=== PATIENT | male | born 1955 | race Asian ===

== ENCOUNTER 2018-01-03 00:33 | Inpatient (IN) | payer MEDICARE ==
[2018-01-03 01:58] LABS: Basophils % (Auto) 0.4 % (0.0-1.8); Eosinophils # (Auto) 0.2 K/mm3 (0.0-0.4); Eosinophils % (Auto) 1.6 % (0.0-4.3); Hematocrit 35.8 % (35.5-45.6); Hemoglobin 12.2 gm/dl (11.8-15.2); Lymphocytes # (Auto) 0.9 K/mm3 (1.2-5.4); Lymphocytes % (Auto) 9.1 % (13.4-35.0); Mean Corpuscular HGB Conc 34 % (32-34); Mean Corpuscular Hemoglobin 33 pg (28-32); Mean Corpuscular Volume 96 fl (84-94); Monocytes # (Auto) 1.3 K/mm3 (0.0-0.8); Monocytes % (Auto) 13.1 % (0.0-7.3); Platelet Count 287 K/mm3 (140-440); Red Blood Count 3.74 M/mm3 (3.65-5.03); Red Cell Distribution Width 15.9 % (13.2-15.2)
[2018-01-03] MEDS ORDERED: NORCO 5/325 PO ONE (01:59)
--- NOTE | 2018-01-03 01:59 | Emergency Department Report ---
ED Extremity Problem HPI - General Chief complaint: Extremity Injury, Lower Stated complaint: WOUND TO RT HIP/CONTROL BLEEDING Time Seen by Provider: 01/03/18 01:01 Source: patient, EMS Mode of arrival: Stretcher Limitations: Physical Limitation - History of Present Illness Initial comments: 62-year-old male with a past history of diabetes, hypertension, hepatitis B and C, S/P Renal transplant on 11/02/16 at [place], chronic wound ulcers, and other medical conditions [facility] with complaints of persistent bleeding to right foot wound. While visiting home nurses changing his wound dressing today he developed bleeding that would not stop. He was sent to the ER for further evaluation. Pt also has a chronic left heel ulcer and has chronic feet pain. Pain currently moderate and worse with palpation and movement. - Related Data Home Medications Medication Instructions Recorded Confirmed Last Taken Cholecalciferol Vit D3 [Vitamin D3] 1,000 unit PO QDAY 11/27/16 11/27/16 Docusate Sodium [Colace] 100 mg PO BID PRN 11/27/16 11/27/16 11/26/16 Entecavir [Baraclude] 0.5 mg PO QWEEK 11/27/16 11/27/16 11/26/16 Famotidine [Pepcid] 20 mg PO QHS 11/27/16 11/27/16 11/26/16 HYDROcodone/APAP 5-325 [[place] 1 each PO Q6HR PRN 11/27/16 11/27/16 11/26/16 5/325] Insulin Aspart [NovoLOG Flexpen] 10 units SQ AC 11/27/16 11/27/16 11/26/16 Insulin Detemir [Levemir VIAL] 20 unit SQ QHS 11/27/16 11/27/16 11/26/16 Metoprolol [Lopressor] 100 mg PO QAM 11/27/16 11/27/16 11/26/16 Mycophenolate [Cellcept] 1,000 mg PO BID 11/27/16 11/27/16 11/26/16 Polyethylene Glycol 3350 [Miralax 17 gm PO QDAY 11/27/16 11/27/16 11/26/16 3350] Sulfamethoxazole/Trimethoprim 1 each PO 3XW 11/27/16 11/27/16 11/26/16 [Bactrim 400-80 mg] Tacrolimus [Prograf] 9 mg PO Q12H 11/27/16 11/27/16 11/26/16 Valganciclovir HCl [Valcyte] 450 mg PO 3XW 11/27/16 11/27/16 11/26/16 amLODIPine [Norvasc] 10 mg PO DAILY 11/27/16 11/27/16 11/26/16 hydrALAZINE [Apresoline TAB] 100 mg PO TID 11/27/16 11/27/16 11/26/16 predniSONE [Deltasone] 5 mg PO QDAY 11/27/16 11/27/16 11/26/16 Allergies Allergy/AdvReac Type Severity Reaction Status Date / Time No Known Allergies Allergy Unverified 11/27/16 09:39 ED Review of Systems ROS: Stated complaint: WOUND TO RT HIP/CONTROL BLEEDING Other details as noted in HPI Comment: All other systems reviewed and negative ED Past Medical Hx - Past Medical History Previous Medical History?: Yes Hx Hypertension: Yes Hx Diabetes: Yes Additional medical history: Hepatitis B and C. neuromuscular dysfunction of bladder. osteomyelitis. generalized weakness - Surgical History Past Surgical History?: Yes Additional Surgical History: Kidney Transplant 10/2016. Vas Cath. Left great toe amputation - Social History Smoking Status: Former Smoker Substance Use Type: None - Medications Home Medications: Home Medications Medication Instructions Recorded Confirmed Last Taken Type Cholecalciferol Vit D3 [Vitamin D3] 1,000 unit PO QDAY 11/27/16 11/27/16 History Docusate Sodium [Colace] 100 mg PO BID PRN 11/27/16 11/27/16 11/26/16 History Entecavir [Baraclude] 0.5 mg PO QWEEK 11/27/16 11/27/16 11/26/16 History Famotidine [Pepcid] 20 mg PO QHS 11/27/16 11/27/16 11/26/16 History HYDROcodone/APAP 5-325 [[place] 1 each PO Q6HR PRN 11/27/16 11/27/16 11/26/16 History 5/325] Insulin Aspart [NovoLOG Flexpen] 10 units SQ AC 11/27/16 11/27/16 11/26/16 History Insulin Detemir [Levemir VIAL] 20 unit SQ QHS 11/27/16 11/27/16 11/26/16 History Metoprolol [Lopressor] 100 mg PO QAM 11/27/16 11/27/16 11/26/16 History Mycophenolate [Cellcept] 1,000 mg PO BID 11/27/16 11/27/16 11/26/16 History Polyethylene Glycol 3350 [Miralax 17 gm PO QDAY 11/27/16 11/27/16 11/26/16 History 3350] Sulfamethoxazole/Trimethoprim 1 each PO 3XW 11/27/16 11/27/16 11/26/16 History [Bactrim 400-80 mg] Tacrolimus [Prograf] 9 mg PO Q12H 11/27/16 11/27/16 11/26/16 History Valganciclovir HCl [Valcyte] 450 mg PO 3XW 11/27/16 11/27/16 11/26/16 History amLODIPine [Norvasc] 10 mg PO DAILY 11/27/16 11/27/16 11/26/16 History hydrALAZINE [Apresoline TAB] 100 mg PO TID 11/27/16 11/27/16 11/26/16 History predniSONE [Deltasone] 5 mg PO QDAY 11/27/16 11/27/16 11/26/16 History ED Physical Exam - General Limitations: Physical Limitation - Other Other exam information: General: No limitations, patient is alert in no acute distress Head exam: Atraumatic, normocephalic Eyes exam: Normal appearance ENT: Moist mucous membrane, normal oropharynx Neck exam: Normal inspection Respiratory exam: Clear to auscultation bilateral, no wheezes, rales, crackles Cardiovascular: Normal rate and rhythm, normal heart sounds Abdomen: Soft, nondistended, and nontender, with normal bowel sounds, no rebound, or guarding Extremity: large ciruclar heel wound noted with clotted blood and minimal bleeding after dressing change. Dressing was soaked with blood prior to removal. Helistat and pressure bandage applied to the ulcer. partial left foot great toe amputation Back: Normal Inspection, full range of motion, no tenderness Neurologic: Alert, oriented x3, cranial nerves intact, no motor or sensory deficit Psychiatric: normal affect, normal mood Skin: b/l heel ulcer. left heel wound dressing. Bleeding right heel ulcer ED Course Vital Signs 01/03/18 01/03/18 01/03/18 01:11 01:15 02:00 Temperature 97.9 F Pulse Rate 60 60 63 Respiratory 20 17 9 L Rate Blood Pressure 142/65 142/65 135/75 O2 Sat by Pulse 97 98 100 Oximetry - Consultations Consultation #1: 01/03/18 02:52 case d/w Dr steff rowe regarding bun/cr ratio. Rec admission and hydration. NS rate 100ml/hr. Will consult ED Medical Decision Making - Lab Data Result diagrams: 01/03/18 01:45 01/03/18 01:45 Lab Results 01/03/18 01/03/18 01/03/18 Range/Units 01:45 01:45 01:45 WBC 10.3 (4.5-11.0) K/mm3 RBC 3.74 (3.65-5.03) M/mm3 Hgb 12.2 (11.8-15.2) gm/dl Hct 35.8 (35.5-45.6) % MCV 96 H (84-94) fl MCH 33 H (28-32) pg MCHC 34 (32-34) % RDW 15.9 H (13.2-15.2) % Plt Count 287 (140-440) K/mm3 Lymph % (Auto) 9.1 L (13.4-35.0) % [place] % (Auto) 13.1 H (0.0-7.3) % Eos % (Auto) 1.6 (0.0-4.3) % Baso % (Auto) 0.4 (0.0-1.8) % Lymph # 0.9 L (1.2-5.4) K/mm3 [place] # 1.3 H (0.0-0.8) K/mm3 Eos # 0.2 (0.0-0.4) K/mm3 Baso # 0.0 (0.0-0.1) K/mm3 Seg Neutrophils % 75.8 H (40.0-70.0) % Seg Neutrophils # 7.8 H (1.8-7.7) K/mm3 PT 13.3 (12.2-14.9) Sec. INR 0.96 (0.87-1.13) APTT 32.2 (24.2-36.6) Sec. Sodium 134 L (137-145) mmol/L Potassium 4.8 (3.6-5.0) mmol/L Chloride 98.5 (98-107) mmol/L Carbon Dioxide 21 L (22-30) mmol/L Anion Gap 19 mmol/L BUN 80 H (9-20) mg/dL Creatinine 1.7 H (0.8-1.5) mg/dL Estimated GFR 41 ml/min BUN/Creatinine Ratio 47 % Glucose 137 H (75-100) mg/dL Calcium 9.2 (8.4-10.2) mg/dL Total Bilirubin 0.30 (0.1-1.2) mg/dL AST 89 H (5-40) units/L ALT 88 H (7-56) units/L Alkaline Phosphatase 564 H (35-129) units/L Total Protein 7.7 (6.3-8.2) g/dL Albumin 3.6 L (3.9-5) g/dL Albumin/Globulin Ratio 0.9 % - Medical Decision Making Patient presents to the ER were persistently bleeding right heal wound. heliostat dressing along with pressure bandage. Hemostasis achieved. H&H, Plt and coags normal range. Incidentally noted that patient has a significantly elevated BUN/creatinine ratio. This was discussed with nephrology who admission for hydration. Uremia may also incr risk of bleeding due platelet dysfunction. Cr improved compared to previous on record However pt was still receiving dialysis at that time. Hospitalist informed for admission. Patient may benefit from in-house wound care assessment. pt given [place] for pain - Differential Diagnosis pressure ulcer, coagulopathy, infection Critical Care Time: No Critical care attestation.: If time is entered above; I have spent that time in minutes in the direct care of this critically ill patient, excluding procedure time. ED Disposition Clinical Impression: Status post kidney transplant, Hepatitis, Chronic heel ulcer, Bleeding from wound, Uremia, Dehydration, CRI (chronic renal insufficiency) Disposition: OP ADMIT IP TO THIS HOSP Is pt being admited?: Yes Condition: Stable Time of Disposition: 03:03 (Dr Spear/hosp)
[2018-01-03 02:22] LABS: INR 0.96 (0.87-1.13)
[2018-01-03 02:23] LABS: Partial Thromboplastin Time 32.2 Sec. (24.2-36.6)
[2018-01-03 02:30] LABS: Albumin 3.6 g/dL (3.9-5); Calcium 9.2 mg/dL (8.4-10.2)
[2018-01-03] MEDS ORDERED: NACL 0.9% 1000 ML 1,000 ML IV ONE (02:51)
[2018-01-03] MEDS ORDERED: ZOFRAN IV PRN (04:44)
[2018-01-03] MEDS ORDERED: TYLENOL PO PRN (04:44)
[2018-01-03] MEDS ORDERED: SODIUM CHLORIDE FLUSH SYRINGE 10 ML IV PRN ×2 (04:44→06:31)
[2018-01-03] MEDS ORDERED: HumuLIN R SUB-Q ONE (05:00)
--- NOTE | 2018-01-03 05:07 | History and Physical Report ---
<ROLAND YOON - Last Filed: 01/03/18 06:19> History of Present Illness Date of examination: 01/03/18 Date of admission: 01/03/18 Chief complaint: Bleeding right foot ulcer History of present illness: P is a 62 y/o male with PMHx of DM type 2, hypertension, hepatitis B and C, S/P Renal transplant in 11/02/16 at [facility]. Pt currently resides in an [facility], he states that his dressing is changed 3 times a week on his left foot. Pt states that his nurse was performing a dressing change when he noticed that the wound was bleeding profusely, pt states that the bleeding wouldn't stop and he was sent to the ER for further evaluation. Pt also report chronic bilateral heel ulcer and pain, pt states that the pain is worse with manipulation and with any movement. He denies any recent illness, he denies fever, denies chills , denies GI symptoms, denies headache or dizziness. In the ER his lab study revealed an elevated BUN/Creat, elevated LFTs, pt nephrology was consulted and he is admitted for further evaluation. Past History Past Medical History: ESRD (s/p transplant), hepatitis Past Surgical History: Other (kidney transplant) Social history: no significant social history Family history: other (unknown) Medications and Allergies Allergies Allergy/AdvReac Type Severity Reaction Status Date / Time No Known Allergies Allergy Unverified 11/27/16 09:39 Home Medications Medication Instructions Recorded Confirmed Last Taken Type Cholecalciferol Vit D3 [Vitamin D3] 1,000 unit PO QDAY 11/27/16 11/27/16 History Docusate Sodium [Colace] 100 mg PO BID PRN 11/27/16 11/27/16 11/26/16 History Entecavir [Baraclude] 0.5 mg PO QWEEK 11/27/16 11/27/16 11/26/16 History Famotidine [Pepcid] 20 mg PO QHS 11/27/16 11/27/16 11/26/16 History HYDROcodone/APAP 5-325 [[place] 1 each PO Q6HR PRN 11/27/16 11/27/16 11/26/16 History 5/325] Insulin Aspart [NovoLOG Flexpen] 10 units SQ AC 0911/27/16 11/26/16 History Insulin Detemir [Levemir VIAL] 20 unit SQ QHS 11/27/16 11/27/16 11/26/16 History Metoprolol [Lopressor] 100 mg PO QAM 11/27/16 11/27/16 11/26/16 History Mycophenolate [Cellcept] 1,000 mg PO BID 11/27/16 11/27/16 11/26/16 History Polyethylene Glycol 3350 [Miralax 17 gm PO QDAY 11/27/16 11/27/16 11/26/16 History 3350] Sulfamethoxazole/Trimethoprim 1 each PO 3XW 11/27/16 11/27/16 11/26/16 History [Bactrim 400-80 mg] Tacrolimus [Prograf] 9 mg PO Q12H 11/27/16 11/27/16 11/26/16 History Valganciclovir HCl [Valcyte] 450 mg PO 3XW 11/27/16 11/27/16 11/26/16 History amLODIPine [Norvasc] 10 mg PO DAILY 11/27/16 11/27/16 11/26/16 History hydrALAZINE [Apresoline TAB] 100 mg PO TID 11/27/16 11/27/16 11/26/16 History predniSONE [Deltasone] 5 mg PO QDAY 11/27/16 11/27/16 11/26/16 History Active Meds: Active Medications Acetaminophen (Tylenol) 650 mg PO Q4H PRN PRN Reason: Pain MILD(1-3)/Fever >100.5/PORTILLO Heparin Sodium (Porcine) (Heparin) 5,000 unit SUB-Q Q12HR TORREY Sodium Chloride (Nacl 0.9% 1000 Ml) 1,000 mls @ 100 mls/hr IV ONCE ONE Stop: 01/03/18 12:50 Last Admin: 01/03/18 03:18 Dose: 100 mls/hr Sodium Chloride (Nacl 0.9% 1000 Ml) 1,000 mls @ 100 mls/hr IV DIRECT TORREY Insulin Human Regular (Humulin R) 0 units SUB-Q ONCE TORREY; Protocol Ondansetron HCl (Zofran) 4 mg IV Q8H PRN PRN Reason: Nausea And Vomiting Sodium Chloride (Sodium Chloride Flush Syringe 10 Ml) 10 ml IV BID TORREY Sodium Chloride (Sodium Chloride Flush Syringe 10 Ml) 10 ml IV PRN PRN PRN Reason: LINE FLUSH Review of Systems Musculoskeletal: other (bilateral foot ulces) Exam - Constitutional Vitals: Temp Pulse Resp BP Pulse Ox 97.9 F 63 9 L 135/75 100 01/03/18 01:11 01/03/18 02:00 01/03/18 02:00 01/03/18 02:00 01/03/18 02:00 General appearance: Present: no acute distress - EENT Eyes: Present: EOM intact ENT: hearing intact - Neck Neck: Present: normal ROM - Respiratory Respiratory effort: normal - Cardiovascular Rhythm: regular - Extremities Extremities: Full ROM Extremity abnormal: ulceration, tenderness Peripheral Pulses: within normal limits - Abdominal Male genitourinary: Present: normal - Rectal Rectal Exam: deferred - Musculoskeletal Musculoskeletal: strength equal bilaterally - Psychiatric Psychiatric: cooperative - Neurologic Neurologic: moves all extremities Results - Labs CBC & Chem 7: 01/03/18 01:45 01/03/18 01:45 Labs: Laboratory Last Values WBC 10.3 K/mm3 (4.5-11.0) 01/03/18 01:45 RBC 3.74 M/mm3 (3.65-5.03) 01/03/18 01:45 Hgb 12.2 gm/dl (11.8-15.2) 01/03/18 01:45 Hct 35.8 % (35.5-45.6) 01/03/18 01:45 MCV 96 fl (84-94) H 01/03/18 01:45 MCH 33 pg (28-32) H 01/03/18 01:45 MCHC 34 % (32-34) 01/03/18 01:45 RDW 15.9 % (13.2-15.2) H 01/03/18 01:45 Plt Count 287 K/mm3 (140-440) 01/03/18 01:45 Lymph % (Auto) 9.1 % (13.4-35.0) L 01/03/18 01:45 [place] % (Auto) 13.1 % (0.0-7.3) H 01/03/18 01:45 Eos % (Auto) 1.6 % (0.0-4.3) 01/03/18 01:45 Baso % (Auto) 0.4 % (0.0-1.8) 01/03/18 01:45 Lymph # 0.9 K/mm3 (1.2-5.4) L 01/03/18 01:45 [place] # 1.3 K/mm3 (0.0-0.8) H 01/03/18 01:45 Eos # 0.2 K/mm3 (0.0-0.4) 01/03/18 01:45 Baso # 0.0 K/mm3 (0.0-0.1) 01/03/18 01:45 Seg Neutrophils % 75.8 % (40.0-70.0) H 01/03/18 01:45 Seg Neutrophils # 7.8 K/mm3 (1.8-7.7) H 01/03/18 01:45 PT 13.3 Sec. (12.2-14.9) 01/03/18 01:45 INR 0.96 (0.87-1.13) 01/03/18 01:45 APTT 32.2 Sec. (24.2-36.6) 01/03/18 01:45 Sodium 134 mmol/L (137-145) L 01/03/18 01:45 Potassium 4.8 mmol/L (3.6-5.0) 01/03/18 01:45 Chloride 98.5 mmol/L (98-107) 01/03/18 01:45 Carbon Dioxide 21 mmol/L (22-30) L 01/03/18 01:45 Anion Gap 19 mmol/L 01/03/18 01:45 BUN 80 mg/dL (9-20) H 01/03/18 01:45 Creatinine 1.7 mg/dL (0.8-1.5) H 01/03/18 01:45 Estimated GFR 41 ml/min 01/03/18 01:45 BUN/Creatinine Ratio 47 % 01/03/18 01:45 Glucose 137 mg/dL (75-100) H 01/03/18 01:45 Calcium 9.2 mg/dL (8.4-10.2) 01/03/18 01:45 Total Bilirubin 0.30 mg/dL (0.1-1.2) 01/03/18 01:45 AST 89 units/L (5-40) H 01/03/18 01:45 ALT 88 units/L (7-56) H 01/03/18 01:45 Alkaline Phosphatase 564 units/L (35-129) H 01/03/18 01:45 Total Protein 7.7 g/dL (6.3-8.2) 01/03/18 01:45 Albumin 3.6 g/dL (3.9-5) L 01/03/18 01:45 Albumin/Globulin Ratio 0.9 % 01/03/18 01:45 Assessment and Plan Assessment and plan: 1. [place] foot wound/ Left foot ulcers 2. Elevated BUN/Creat 3. Post kidney transplant 4. H/O HCV/HBV 5. Elevated LFTs 6. Anemia Plan Wound care consult IVF for hydration/renal perfusion Nephrology consult management Monitor BNP and LFTs Resume home meds Pain management PRN for feet pain DVT prophylaxis with Heparin Plan of care was discussed with Pt Pt's condition and plan of care was d/w attending Advance Directives: Yes VTE prophylaxis?: Chemical Plan of care discussed with patient/family: Yes <TIKA CASTANEDA - Last Filed: 01/03/18 07:00> History of Present Illness Date of admission: 01/03/18 04:44 Medications and Allergies Active Meds: Active Medications Acetaminophen (Tylenol) 650 mg PO Q4H PRN PRN Reason: Pain MILD(1-3)/Fever >100.5/PORTILLO Heparin Sodium (Porcine) (Heparin) 5,000 unit SUB-Q Q12HR TORREY Sodium Chloride (Nacl 0.9% 1000 Ml) 1,000 mls @ 100 mls/hr IV ONCE ONE Stop: 01/03/18 12:50 Last Admin: 01/03/18 03:18 Dose: 100 mls/hr Sodium Chloride (Nacl 0.9% 1000 Ml) 1,000 mls @ 100 mls/hr IV DIRECT TORREY Ondansetron HCl (Zofran) 4 mg IV Q8H PRN PRN Reason: Nausea And Vomiting Sodium Chloride (Sodium Chloride Flush Syringe 10 Ml) 10 ml IV BID TORREY Sodium Chloride (Sodium Chloride Flush Syringe 10 Ml) 10 ml IV PRN PRN PRN Reason: LINE FLUSH Exam - Constitutional Vitals: Temp Pulse Resp BP Pulse Ox 97.9 F 61 20 156/65 98 01/03/18 01:11 01/03/18 06:01 01/03/18 06:01 01/03/18 06:01 01/03/18 06:01 Results - Labs CBC & Chem 7: 01/03/18 01:45 01/03/18 01:45 Labs: Laboratory Last Values WBC 10.3 K/mm3 (4.5-11.0) 01/03/18 01:45 RBC 3.74 M/mm3 (3.65-5.03) 01/03/18 01:45 Hgb 12.2 gm/dl (11.8-15.2) 01/03/18 01:45 Hct 35.8 % (35.5-45.6) 01/03/18 01:45 MCV 96 fl (84-94) H 01/03/18 01:45 MCH 33 pg (28-32) H 01/03/18 01:45 MCHC 34 % (32-34) 01/03/18 01:45 RDW 15.9 % (13.2-15.2) H 01/03/18 01:45 Plt Count 287 K/mm3 (140-440) 01/03/18 01:45 Lymph % (Auto) 9.1 % (13.4-35.0) L 01/03/18 01:45 [place] % (Auto) 13.1 % (0.0-7.3) H 01/03/18 01:45 Eos % (Auto) 1.6 % (0.0-4.3) 01/03/18 01:45 Baso % (Auto) 0.4 % (0.0-1.8) 01/03/18 01:45 Lymph # 0.9 K/mm3 (1.2-5.4) L 01/03/18 01:45 [place] # 1.3 K/mm3 (0.0-0.8) H 01/03/18 01:45 Eos # 0.2 K/mm3 (0.0-0.4) 01/03/18 01:45 Baso # 0.0 K/mm3 (0.0-0.1) 01/03/18 01:45 Seg Neutrophils % 75.8 % (40.0-70.0) H 01/03/18 01:45 Seg Neutrophils # 7.8 K/mm3 (1.8-7.7) H 01/03/18 01:45 PT 13.3 Sec. (12.2-14.9) 01/03/18 01:45 INR 0.96 (0.87-1.13) 01/03/18 01:45 APTT 32.2 Sec. (24.2-36.6) 01/03/18 01:45 Sodium 134 mmol/L (137-145) L 01/03/18 01:45 Potassium 4.8 mmol/L (3.6-5.0) 01/03/18 01:45 Chloride 98.5 mmol/L (98-107) 01/03/18 01:45 Carbon Dioxide 21 mmol/L (22-30) L 01/03/18 01:45 Anion Gap 19 mmol/L 01/03/18 01:45 BUN 80 mg/dL (9-20) H 01/03/18 01:45 Creatinine 1.7 mg/dL (0.8-1.5) H 01/03/18 01:45 Estimated GFR 41 ml/min 01/03/18 01:45 BUN/Creatinine Ratio 47 % 01/03/18 01:45 Glucose 137 mg/dL (75-100) H 01/03/18 01:45 POC Glucose 92 (70-105) 01/03/18 05:34 Calcium 9.2 mg/dL (8.4-10.2) 01/03/18 01:45 Total Bilirubin 0.30 mg/dL (0.1-1.2) 01/03/18 01:45 AST 89 units/L (5-40) H 01/03/18 01:45 ALT 88 units/L (7-56) H 01/03/18 01:45 Alkaline Phosphatase 564 units/L (35-129) H 01/03/18 01:45 Total Protein 7.7 g/dL (6.3-8.2) 01/03/18 01:45 Albumin 3.6 g/dL (3.9-5) L 01/03/18 01:45 Albumin/Globulin Ratio 0.9 % 01/03/18 01:45 Assessment and Plan Assessment and plan: Pt seen and examined, please refer to notes for details. He had bleeding from his wound on left foot which was stopped in the emergency room. We'll consult wound care, obtain ultrasound of his kidneys. Agree with the plan of care as discussed above
[2018-01-03] MEDS ORDERED: HEPARIN SUB-Q SCH (10:00)
[2018-01-03] MEDS ORDERED: SODIUM CHLORIDE FLUSH SYRINGE 10 ML IV SCH (10:00)
--- NOTE | 2018-01-03 10:26 | Consultation ---
History of Present Illness - Reason for Consult Consult date: 01/03/18 acute renal failure - History of Present Illness Mr James is a 62 y/o M with a PMH of DM2, HTN, Hep B and C, Renal Tx at [facility] in Oct 2016, Fungal sinus infection who comes to the [facility] with foot wound infection. Pt was sent to the ER from Rehab. He says his wound has been bleeding profusely recently. Per his family, he was recently admitted to the [facility] with fungal sinus infection and all his tx medications except prednisone were held. Per the discharge medication list from [facility] from Dec 24, 2017, pt was only on prednisone for tx and not on tacro/cellcept. He was also discharged on a anti-fungal medication. Pt currently denies fever, chills, N/V, belly pain , diarrhea. ROS: As in HPI otherwise 12 point review of systems -ve Past History Past Medical History: ESRD (s/p transplant), hepatitis Past Surgical History: Other (kidney transplant) Social history: no significant social history Family history: other (unknown) Medications and Allergies Allergies Allergy/AdvReac Type Severity Reaction Status Date / Time No Known Allergies Allergy Unverified 11/27/16 09:39 Home Medications Medication Instructions Recorded Confirmed Last Taken Type Aspirin [Aspirin BABY CHEW TAB] 81 mg PO QDAY 01/03/18 01/03/18 01/02/18 History Atovaquone [Mepron] 10 ml PO QHS 01/03/18 01/03/18 01/02/18 History Carvedilol [Coreg] 6.25 mg PO BID 01/03/18 01/03/18 01/02/18 History Cholecalciferol (Vitamin D3) 2,000 unit PO DAILY 01/03/18 01/03/18 1 Day Ago History [Vitamin D3] ~01/02/18 Collagenase [Santyl] 1 applicatio TP QDAY 01/03/18 01/03/18 1 Day Ago History ~01/02/18 Dextrose [Glucose Gel] 38 gm PO PRN PRN 01/03/18 01/03/18 Unknown History Docusate Sodium [Colace] 100 mg PO BID PRN 01/03/18 01/03/18 01/02/18 History Furosemide [Lasix TAB] 40 mg PO QDAY 01/03/18 01/03/18 01/02/18 History Heparin Sodium,Porcine [Heparin 5,000 units SUB-Q Q8HR 01/03/18 01/03/18 History Sodium] Insulin Glargine,Hum.rec.anlog 17 unit SQ QHS 01/03/18 01/03/18 01/02/18 History [Basaglar Kwikpen U-100] Isavuconazonium Sulfate [Cresemba] 372 mg PO DAILY 01/03/18 01/03/18 01/02/18 History Multivit-Min/Iron Fum/Folic AC 1 each PO DAILY 01/03/18 01/03/18 1 Day Ago History [Mnrfj-Ubvfcju-Nkzhtdur Tablet] ~01/02/18 NIFEdipine [Nifedipine ER] 60 mg PO BID 01/03/18 01/03/18 1 Day Ago History ~01/02/18 Pantoprazole [Protonix] 40 mg PO QDAY 01/03/18 01/03/18 1 Day Ago History ~01/02/18 Pregabalin [Lyrica] 25 mg PO Q8HR 01/03/18 01/03/18 1 Day Ago History ~01/02/18 RX: Entecavir 0.5 mg PO DAILY 01/03/18 01/03/18 01/02/18 History RX: Hydralazine HCl 50 mg PO TID 01/03/18 01/03/18 01/02/18 History RX: Sodium Bicarbonate 650 mg PO BID 01/03/18 01/03/18 1 Day Ago History ~01/02/18 RX: predniSONE [Deltasone] 10 mg PO QDAY 01/03/18 01/03/18 1 Day Ago History ~01/02/18 Simethicone [Gas Relief] 80 mg PO PRN 01/03/18 01/03/18 Unknown History Sodium Chloride/Aloe Vera [Searcy 22 ml NS Q6HR 01/03/18 01/03/18 01/02/18 History Saline Nasal Gel [place]] oxyCODONE /ACETAMINOPHEN [Percocet 1 tab PO Q6HR PRN 01/03/18 01/03/18 Unknown History 5/325] Active Meds: Active Medications Acetaminophen (Tylenol) 650 mg PO Q4H PRN PRN Reason: Pain MILD(1-3)/Fever >100.5/PORTILLO Heparin Sodium (Porcine) (Heparin) 5,000 unit SUB-Q Q12HR TORREY Sodium Chloride (Nacl 0.9% 1000 Ml) 1,000 mls @ 100 mls/hr IV ONCE ONE Stop: 01/03/18 12:50 Last Admin: 01/03/18 03:18 Dose: 100 mls/hr Sodium Chloride (Nacl 0.9% 1000 Ml) 1,000 mls @ 100 mls/hr IV DIRECT TORREY Ondansetron HCl (Zofran) 4 mg IV Q8H PRN PRN Reason: Nausea And Vomiting Sodium Chloride (Sodium Chloride Flush Syringe 10 Ml) 10 ml IV BID TORREY Sodium Chloride (Sodium Chloride Flush Syringe 10 Ml) 10 ml IV PRN PRN PRN Reason: LINE FLUSH Exam - Vital Signs Vital signs: Vital Signs Temp Pulse Resp BP Pulse Ox 97.9 F 60 20 142/65 97 01/03/18 01:11 01/03/18 01:11 01/03/18 01:11 01/03/18 01:11 01/03/18 01:11 - Physical Exam Narrative exam: GE:AAOX3 HEENT:PERRLA Neck:Supple Chest:Coarse BS BL CVS:RRR Abd:Soft/NT/ND/BS+ Ext:BL legs wrapped UG:No magdaleno Neuro:Intact Psyche:Appropriate mood Results - Lab Results 01/03/18 01:45 01/03/18 14:20 Most recent lab results Calcium 9.2 mg/dL (8.4-10.2) 01/03/18 01:45 Assessment and Plan Acute Kidney injury likely Pre-renal/ATN: Renal Transplant: -Renal US of Tx kidney shows WNLs -Cr improving with NS, will continue -Per recent d/c med list from [facility], pt only on predisone 10 mg daily, per family he was taken off tacro/Cellcept owing to fungal sinus infection. Primary team to verify his outpatient med list -Check Urine studies -Renally dose all meds and avoid nephrotoxic meds Foot wounds: -Wound care per primary Fungal Sinus infection: -Can continue outpatient anti-fungal medication -Consider ID consult Hepatitis C infection: -Can continue entacavir History Essential HTN: -Titrate BP meds PRN Diabetes Mellitus type 2 on insulin: -Per primary Metabolic acidosis: -Continue NaHCO3 tabs Plan d/w Dr Perez, Family and bedside RN. Ole Beaver MD [phone]
[2018-01-03] MEDS: NACL 0.9% 1000 ML 1,000 ML IV SCH (11:00)
--- NOTE | 2018-01-03 13:45 | Ultrasound Report ---
ULTRASOUND RENAL BILATERAL HISTORY: Acute renal failure. TECHNIQUE: transabdominal ultrasound with color Doppler interrogation. COMPARISON: none. FINDINGS: The right kidney measures 10.5cm. Right renal cortex: 1.2cm. The left kidney measures 10.3cm. Left renal cortex: 1.4cm. The tunica-biloxi kidneys are normal size, contour and position. There is increased renal cortical echotexture bilaterally consistent with nonspecific renal parenchymal disease. Corticomedullary differentiation is preserved. A 1.5 cm simple cyst is noted in the superior left kidney. No evidence for mass, nephrolithiasis, hydronephrosis or perinephric fluid. The views of the bladder and the region of the ureters appear normal. A transplant kidney is identified in the right lower quadrant measuring 11.7 x 6.7 x 8.4 cm. The transplant kidney does appear slightly echogenic. No evidence for hydronephrosis, calculus or perinephric fluid. Color Doppler demonstrates good flow to transplant kidney. IMPRESSION: The tunica-biloxi kidneys are echogenic consistent with chronic renal parenchymal disease. Essentially unremarkable appearance of the transplant kidney in the right renal fossa.
[2018-01-03] MEDS ORDERED: DELTASONE PO SCH ×2 (15:00→16:00)
[2018-01-03] MEDS: DELTASONE PO SCH (15:00)
[2018-01-03 15:13] LABS: Calcium 9.3 mg/dL (8.4-10.2)
[2018-01-03] MEDS ORDERED: COLACE PO PRN (15:28)
--- NOTE | 2018-01-03 15:28 | Event Note ---
Date: 01/03/18 Reviewed his meds and restarted S/p renal transplant patient Off cellcept sec to fungal infection On Antifungals Lasix on Hold Baseline BUN/Cr 60/1.4 on per Erlin On 12/30 82/1.8 Today 80/1.7 Sister and relatives very demanding
[2018-01-03] MEDS ORDERED: NON-FORMULARY (Cholecalciferol (Vitamin D3) [Vitamin D3] 2,000 UNIT) PO SCH (15:30)
[2018-01-03] MEDS ORDERED: NON-FORMULARY (Entecavir [Entecavir] 0.5 MG) PO SCH (15:30)
[2018-01-03] MEDS ORDERED: ISAVUCONAZONIUM SULFATE 372 MG PO SCH (15:30)
--- NOTE | 2018-01-03 15:33 | XRay Report ---
FINAL REPORT EXAM: XR CHEST 1V AP HISTORY: congestion COMPARISON: None. TECHNIQUE: Single portable view of the chest FINDINGS: The cardiomediastinal silhouette is normal in appearance. There is mild blunting of the right costophrenic angle that may represent a small pleural effusion. There is mild prominence of the pulmonary vasculature. No acute bony or soft tissue abnormality. IMPRESSION: Mild pulmonary vascular congestion. Mild blunting of the right costophrenic angle that may represent a trace pleural effusion.
[2018-01-03] MEDS ORDERED: NON-FORMULARY (Multivit-Min/Iron Fum/Folic Ac [Multi-Vitamin-Minerals Tablet] 1 EACH) PO SCH (15:45)
[2018-01-03] MEDS ORDERED: NON-FORMULARY (Nifedipine [Nifedipine Er] 60 MG) PO SCH (15:45)
[2018-01-03] MEDS ORDERED: MYLICON PO SCH (16:00)
[2018-01-03] MEDS: THERAGRAN-M Tab PO SCH (17:38)
[2018-01-03] MEDS: BABY ASPIRIN PO SCH (17:38)
[2018-01-03] MEDS: PROTONIX PO SCH (17:38)
[2018-01-03] MEDS: PERCOCET 5/325 PO PRN (17:38)
[2018-01-03] MEDS: LYRICA PO SCH ×2 (17:39→21:35)
[2018-01-03] MEDS ORDERED: SODIUM CHLORIDE NS SCH (18:00)
[2018-01-03] MEDS ORDERED: ALOE VERA NS SCH (18:00)
[2018-01-03] MEDS: SODIUM CHLORIDE FLUSH SYRINGE 10 ML IV SCH ×2 (18:35→21:37)
[2018-01-03] MEDS: SODIUM BICARBONATE PO SCH ×2 (18:36→21:34)
[2018-01-03] MEDS: VITAMIN D3 PO SCH (18:36)
[2018-01-03] MEDS: COREG PO SCH ×2 (18:37→21:35)
[2018-01-03] MEDS: SANTYL TP SCH (18:37)
[2018-01-03] MEDS: DAKIN'S HALF STRENGTH TP SCH ×2 (18:38→20:50)
[2018-01-03] MEDS ORDERED: NON-FORMULARY (Hydralazine Hcl [Hydralazine Hcl] 50 MG) PO SCH (20:00)
[2018-01-03] MEDS: APRESOLINE PO SCH (21:34)
[2018-01-03] MEDS: PROCARDIA XL PO SCH (21:35)
[2018-01-03] MEDS: HEPARIN SUB-Q SCH (21:35)
[2018-01-03] MEDS: MEPRON PO SCH (21:35)
[2018-01-03] MEDS: LANTUS SUB-Q SCH (21:37)
[2018-01-03] MEDS ORDERED: CELLCEPT PO SCH (22:00)
[2018-01-03] MEDS ORDERED: HEPARIN SODIUM PORCINE 5000 UNIT SUB-Q SCH (22:00)
[2018-01-03] MEDS ORDERED: INSULIN GLARGINE HUM REC ANLOG 17 UNIT SQ SCH (22:00)
[2018-01-04] MEDS: PERCOCET 5/325 PO PRN ×3 (02:42→23:51)
[2018-01-04] MEDS: NACL 0.9% 1000 ML 1,000 ML IV SCH ×2 (02:43→14:41)
[2018-01-04 03:14] LABS: Bilirubin,Urine NEG (Negative); Blood,Urine NEG (Negative); Color,Urine Yellow (Yellow); RBC,Urine < 1.0 /HPF (0.0-6.0); Urobilinogen,Urine < 2.0 mg/dL (<2.0)
[2018-01-04 03:18] LABS: Creatinine,Urine 28.3 mg/dL (0.1-20.0)
[2018-01-04 05:25] LABS: Hematocrit 35.4 % (35.5-45.6); Hemoglobin 11.9 gm/dl (11.8-15.2); Mean Corpuscular HGB Conc 34 % (32-34); Mean Corpuscular Hemoglobin 33 pg (28-32); Mean Corpuscular Volume 97 fl (84-94); Platelet Count 274 K/mm3 (140-440); Red Blood Count 3.64 M/mm3 (3.65-5.03); Red Cell Distribution Width 16.2 % (13.2-15.2)
[2018-01-04] MEDS: APRESOLINE PO SCH ×3 (05:34→21:19)
[2018-01-04] MEDS: HEPARIN SUB-Q SCH ×3 (05:34→21:20)
[2018-01-04] MEDS: LYRICA PO SCH ×3 (05:34→21:31)
[2018-01-04 05:48] LABS: Alanine Aminotransferase 71 units/L (7-56); BUN/Creatinine Ratio 45; Blood Urea Nitrogen 54 mg/dL (9-20); Calcium 8.8 mg/dL (8.4-10.2)
[2018-01-04 05:49] LABS: Albumin 3.1 g/dL (3.9-5); Hemolysis Index 7
[2018-01-04 06:20] LABS: Band Neutrophils # (Manual) 0.1 K/mm3; Basophils % (Manual) 0 % (0.0-1.8); Promyelocytes # (Manual) 0.1 K/mm3; Total Cells Counted 100
[2018-01-04 06:21] LABS: Anisocytosis 1+; Platelet Estimate Consistent w Auto
--- NOTE | 2018-01-04 09:18 | Consultation ---
History of Present Illness Consult date: 01/04/18 Reason for consult: other Chief complaint: Bilateral heel ulcers - History of present illness History of present illness: 62 yo diabetic male with bilateral heel ulcers. He states he was ambulatory as of 2 days ago. Past History Past Medical History: ESRD (s/p transplant), hepatitis, other (s/p renal transplant) Past Surgical History: Other (kidney transplant) Social history: no significant social history Family history: other (unknown) Medications and Allergies Allergies Allergy/AdvReac Type Severity Reaction Status Date / Time No Known Allergies Allergy Unverified 11/27/16 09:39 Home Medications Medication Instructions Recorded Confirmed Last Taken Type Aspirin [Aspirin BABY CHEW TAB] 81 mg PO QDAY 01/03/18 01/03/18 01/02/18 History Atovaquone [Mepron] 10 ml PO QHS 01/03/18 01/03/18 01/02/18 History Carvedilol [Coreg] 6.25 mg PO BID 01/03/18 01/03/18 01/02/18 History Cholecalciferol (Vitamin D3) 2,000 unit PO DAILY 01/03/18 01/03/18 1 Day Ago History [Vitamin D3] ~01/02/18 Collagenase [Santyl] 1 applicatio TP QDAY 01/03/18 01/03/18 1 Day Ago History ~01/02/18 Dextrose [Glucose Gel] 38 gm PO PRN PRN 01/03/18 01/03/18 Unknown History Docusate Sodium [Colace] 100 mg PO BID PRN 01/03/18 01/03/18 01/02/18 History Entecavir 0.5 mg PO DAILY 01/03/18 01/03/18 01/02/18 History Furosemide [Lasix TAB] 40 mg PO QDAY 01/03/18 01/03/18 01/02/18 History Heparin Sodium,Porcine [Heparin 5,000 units SUB-Q Q8HR 01/03/18 01/03/18 History Sodium] Hydralazine HCl 50 mg PO TID 01/03/18 01/03/18 01/02/18 History Insulin Glargine,Hum.rec.anlog 17 unit SQ QHS 01/03/18 01/03/18 01/02/18 History [Basaglar Kwikpen U-100] Isavuconazonium Sulfate [Cresemba] 372 mg PO DAILY 01/03/18 01/03/18 01/02/18 History Multivit-Min/Iron Fum/Folic AC 1 each PO DAILY 01/03/18 01/03/18 1 Day Ago History [Gdfqr-Whbgsos-Pplbsneg Tablet] ~01/02/18 NIFEdipine [Nifedipine ER] 60 mg PO BID 01/03/18 01/03/18 1 Day Ago History ~01/02/18 Pantoprazole [Protonix] 40 mg PO QDAY 01/03/18 01/03/18 1 Day Ago History ~01/02/18 Pregabalin [Lyrica] 25 mg PO Q8HR 01/03/18 01/03/18 1 Day Ago History ~01/02/18 Simethicone [Gas Relief] 80 mg PO PRN 01/03/18 01/03/18 Unknown History Sodium Bicarbonate 650 mg PO BID 01/03/18 01/03/18 1 Day Ago History ~01/02/18 Sodium Chloride/Aloe Vera [[place] 22 ml NS Q6HR 01/03/18 01/03/18 01/02/18 History Saline Nasal Gel [place]] oxyCODONE /ACETAMINOPHEN [Percocet 1 tab PO Q6HR PRN 01/03/18 01/03/18 Unknown History 5/325] predniSONE [Deltasone] 10 mg PO QDAY 01/03/18 01/03/18 1 Day Ago History ~01/02/18 Active Meds: Active Medications Acetaminophen (Tylenol) 650 mg PO Q4H PRN PRN Reason: Pain MILD(1-3)/Fever >100.5/PORTILLO Last Admin: 01/03/18 11:00 Dose: 650 mg Aspirin (Baby Aspirin) 81 mg PO QDAY [facility] Last Admin: 01/03/18 17:38 Dose: 81 mg Atovaquone (Mepron) 1,500 mg PO QHS [facility] Last Admin: 01/03/18 21:35 Dose: 1,500 mg Carvedilol (Coreg) 6.25 mg PO BID [facility] Last Admin: 01/03/18 21:35 Dose: 6.25 mg Cholecalciferol (Vitamin D3) 2,000 unit PO DAILY [facility] Last Admin: 01/03/18 18:36 Dose: Not Given Collagenase (Santyl) 1 applic TP QDAY [facility] Last Admin: 01/03/18 18:37 Dose: Not Given Docusate Sodium (Colace) 100 mg PO BID PRN PRN Reason: Constipation Heparin Sodium (Porcine) (Heparin) 5,000 unit SUB-Q Q8HR [facility] Last Admin: 01/04/18 05:34 Dose: 5,000 unit Hydralazine HCl (Apresoline) 25 mg PO Q8HR [facility] Last Admin: 01/04/18 05:34 Dose: 25 mg Sodium Chloride (Nacl 0.9% 1000 Ml) 1,000 mls @ 100 mls/hr IV DIRECT [facility] Last Admin: 01/04/18 02:43 Dose: 100 mls/hr Insulin Glargine (Lantus) 17 units SUB-Q QHS [facility] Last Admin: 01/03/18 21:37 Dose: 17 units Miscellaneous Medication (Entecavir [Entecavir]) 0.5 mg PO DAILY [facility] Miscellaneous Medication (Isavuconazonium Sulfate [Cresemba]) 372 mg PO DAILY [facility] Multivitamins/Minerals (Theragran-M Tab) 1 each PO QDAY [facility] Last Admin: 01/03/18 17:38 Dose: 1 each Nifedipine (Procardia Xl) 60 mg PO BID [facility] Last Admin: 01/03/18 21:35 Dose: 60 mg Ondansetron HCl (Zofran) 4 mg IV Q8H PRN PRN Reason: Nausea And Vomiting Oxycodone/Acetaminophen (Percocet 5/325) 1 tab PO Q6HR PRN PRN Reason: Pain Last Admin: 01/04/18 08:28 Dose: 1 tab Pantoprazole Sodium (Protonix) 40 mg PO QDAY [facility] Last Admin: 01/03/18 17:38 Dose: 40 mg Prednisone (Deltasone) 10 mg PO QDAY [facility] Last Admin: 01/03/18 15:00 Dose: Not Given Pregabalin (Lyrica) 25 mg PO Q8HR [facility] Last Admin: 01/04/18 05:34 Dose: 25 mg Simethicone (Mylicon) 80 mg PO PRN [facility] Last Admin: 01/03/18 17:39 Dose: 80 mg Sodium Bicarbonate (Sodium Bicarbonate) 650 mg PO BID [facility] Last Admin: 01/03/18 21:34 Dose: 650 mg Sodium Chloride (Sodium Chloride Flush Syringe 10 Ml) 10 ml IV BID TORREY Last Admin: 01/03/18 21:37 Dose: 10 ml Sodium Chloride (Sodium Chloride Flush Syringe 10 Ml) 10 ml IV PRN PRN PRN Reason: LINE FLUSH Sodium Chloride ([place] Saline) 1 applic NS Q6HR TORREY Sodium Hypochlorite (Dakin's Half Strength) 1 applic TP BID TORREY Last Admin: 01/03/18 20:50 Dose: 1 applicatio Review of Systems All systems: negative Exam Vital Signs Temp Pulse Resp BP Pulse Ox 97.9 F 60 20 142/65 97 01/03/18 01:11 01/03/18 01:11 01/03/18 01:11 01/03/18 01:11 01/03/18 01:11 - General physical appearance Positive: well developed, well nourished, no distress - Eyes Positive: PERRL, normal occular movement - ENT Positive: normal pinna, normal nares, normal mucosa, no hearing loss, no congestion - Neck Positive: no masses, no bruits, trachea midline, no venous distension - Respiratory Positive: normal expansion, normal respiratory effort, clear to auscultation - Cardiovascular Rhythm: regular Heart Sounds: Present: S1 & S2. Absent: rub, click - Extremities Extremities: abnormal (DP and PT pulses are non-palpable bilaterally. There is a 9 X 6 X 2 cm ulceration of the right heel with all of the calcaneus exposed and dessicated. The left heel reveals a 4.5 X 4.5 X 1.5 cm calcaneal ulcer with only a thin film of necrotic fascia over the calcaneus.) - Breasts Breasts: deferred - Abdomen Abdomen: Present: soft, bowel sounds normal. Absent: tender, distended Hernia: none - Genitourinary Male Genitourinary: deferred - Neurologic Neurologic: alert and oriented to time, place and person, motor strength and sensation are grossly intact - Musculoskeletal normal gait, normal posture - Psychiatric Psychiatric: appropriate mood/affect, intact judgment & insight Results - Labs 01/04/18 05:04 01/04/18 05:04 Abnormal lab results 01/03/18 01/03/18 01/04/18 Range/Units 14:20 21:38 02:46 RBC (3.65-5.03) M/mm3 Hct (35.5-45.6) % MCV (84-94) fl MCH (28-32) pg RDW (13.2-15.2) % Seg Neuts % (Manual) (40.0-70.0) % Lymphocytes % (Manual) (13.4-35.0) % Monocytes % (Manual) (0.0-7.3) % Eosinophils % (Manual) (0.0-4.3) % Lymphocytes # (Manual) (1.2-5.4) K/mm3 Eosinophils # (Manual) (0.0-0.4) K/mm3 Sodium (137-145) mmol/L Carbon Dioxide 20 L (22-30) mmol/L BUN 67 H (9-20) mg/dL Glucose 109 H (75-100) mg/dL POC Glucose 204 H (70-105) Phosphorus 2.30 L (2.5-4.5) mg/dL AST (5-40) units/L ALT (7-56) units/L Alkaline Phosphatase (35-129) units/L NT-Pro-B Natriuret Pep 1851 H (0-900) pg/mL Albumin (3.9-5) g/dL Urine Creatinine 28.3 H (0.1-20.0) mg/dL 01/04/18 01/04/18 01/04/18 Range/Units 05:04 05:04 07:46 RBC 3.64 L (3.65-5.03) M/mm3 Hct 35.4 L (35.5-45.6) % MCV 97 H (84-94) fl MCH 33 H (28-32) pg RDW 16.2 H (13.2-15.2) % Seg Neuts % (Manual) 72.0 H (40.0-70.0) % Lymphocytes % (Manual) 11.0 L (13.4-35.0) % Monocytes % (Manual) 9.0 H (0.0-7.3) % Eosinophils % (Manual) 6.0 H (0.0-4.3) % Lymphocytes # (Manual) 1.0 L (1.2-5.4) K/mm3 Eosinophils # (Manual) 0.6 H (0.0-0.4) K/mm3 Sodium 135 L (137-145) mmol/L Carbon Dioxide 20 L (22-30) mmol/L BUN 54 H (9-20) mg/dL Glucose 144 H (75-100) mg/dL POC Glucose 127 H (70-105) Phosphorus (2.5-4.5) mg/dL AST 70 H (5-40) units/L ALT 71 H (7-56) units/L Alkaline Phosphatase 511 H (35-129) units/L NT-Pro-B Natriuret Pep (0-900) pg/mL Albumin 3.1 L (3.9-5) g/dL Urine Creatinine (0.1-20.0) mg/dL Diabetes panel 01/03/18 01/04/18 Range/Units 14:20 05:04 Sodium 139 135 L (137-145) mmol/L Potassium 4.6 4.6 (3.6-5.0) mmol/L Chloride 103.5 102.8 (98-107) mmol/L Carbon Dioxide 20 L 20 L (22-30) mmol/L BUN 67 H 54 H (9-20) mg/dL Creatinine 1.4 1.2 (0.8-1.5) mg/dL Glucose 109 H 144 H (75-100) mg/dL Calcium 9.3 8.8 (8.4-10.2) mg/dL AST 70 H (5-40) units/L ALT 71 H (7-56) units/L Alkaline Phosphatase 511 H (35-129) units/L Total Protein 6.7 (6.3-8.2) g/dL Albumin 3.1 L (3.9-5) g/dL Calcium panel 01/03/18 01/04/18 Range/Units 14:20 05:04 Calcium 9.3 8.8 (8.4-10.2) mg/dL Phosphorus 2.30 L (2.5-4.5) mg/dL Albumin 3.1 L (3.9-5) g/dL Pituitary panel 01/03/18 01/04/18 Range/Units 14:20 05:04 Sodium 139 135 L (137-145) mmol/L Potassium 4.6 4.6 (3.6-5.0) mmol/L Chloride 103.5 102.8 (98-107) mmol/L Carbon Dioxide 20 L 20 L (22-30) mmol/L BUN 67 H 54 H (9-20) mg/dL Creatinine 1.4 1.2 (0.8-1.5) mg/dL Glucose 109 H 144 H (75-100) mg/dL Calcium 9.3 8.8 (8.4-10.2) mg/dL Adrenal panel 01/03/18 01/04/18 Range/Units 14:20 05:04 Sodium 139 135 L (137-145) mmol/L Potassium 4.6 4.6 (3.6-5.0) mmol/L Chloride 103.5 102.8 (98-107) mmol/L Carbon Dioxide 20 L 20 L (22-30) mmol/L BUN 67 H 54 H (9-20) mg/dL Creatinine 1.4 1.2 (0.8-1.5) mg/dL Glucose 109 H 144 H (75-100) mg/dL Calcium 9.3 8.8 (8.4-10.2) mg/dL Total Bilirubin 0.20 (0.1-1.2) mg/dL AST 70 H (5-40) units/L ALT 71 H (7-56) units/L Alkaline Phosphatase 511 H (35-129) units/L Total Protein 6.7 (6.3-8.2) g/dL Albumin 3.1 L (3.9-5) g/dL Assessment and Plan - Patient Problems (1) Chronic heel ulcer Current Visit: Yes Status: Acute Plan to address problem: 1) BLE arterial dopplers 2) Local wound care via the Wound Care nurse 3) Check A1c 4) Pt will need bilateral BKA's/AKA's. I suspect his family will not accept this well (See note that his family has been "demanding".).
[2018-01-04] MEDS: DAKIN'S HALF STRENGTH TP SCH ×2 (10:52→21:27)
[2018-01-04] MEDS: SODIUM BICARBONATE PO SCH ×2 (10:55→21:31)
[2018-01-04] MEDS: BABY ASPIRIN PO SCH (10:55)
[2018-01-04] MEDS: COREG PO SCH ×2 (10:55→21:19)
[2018-01-04] MEDS: PROTONIX PO SCH (10:55)
[2018-01-04] MEDS: THERAGRAN-M Tab PO SCH (10:56)
[2018-01-04] MEDS: PROCARDIA XL PO SCH ×2 (10:56→21:17)
[2018-01-04] MEDS: SODIUM CHLORIDE FLUSH SYRINGE 10 ML IV SCH ×2 (10:56→21:18)
[2018-01-04] MEDS: VITAMIN D3 PO SCH (10:56)
[2018-01-04] MEDS: SANTYL TP SCH (10:57)
[2018-01-04] MEDS: DELTASONE PO SCH (10:59)
[2018-01-04] MEDS: AYR SALINE NS SCH ×3 (11:10→23:52)
--- NOTE | 2018-01-04 13:33 | Progress Note ---
Assessment and Plan Assessment and plan: --Bilateral heel ulcers/infected/necrotic; Continue wound care, patient completed full course of antibiotic therapy, follow cultures, vascular and Wound care surgeons following, Dr. Cardenas recommended amputation. Patient and sister refused. Want to take second opinion --Fungal infection; continue antifungal, supportive care Patient's home medication Cresemba[Isavuconazonium sulfate is not available in our hospital] Patient and family demands the same brand antifungal medication. ID consultation for further evaluation and recommendations --Acute kidney injury; present on admission, probably vasomotor nephropathy Resolved, closely monitor renal function, avoid nephrotoxins --Status post renal transplant; continue current management Nephrology evaluated the patient --History of hepatitis C virus/hepatitis B virus; Continue current management, consider GI evaluation if needed --Transaminitis; probably secondary to hep B and C, closely monitor, GI evaluation if needed --Type 2 diabetes mellitus; Accu-Chek sliding scale coverage and ADA diet and insulin as needed --Moderate malnutrition; nutrition supplements and supportive care --DVT prophylaxis; continue heparin --Full CODE STATUS Will closely monitor the patient and adjust management as needed Follow-up consults evaluation and recommendations Plan of care reviewed with the patient ,his sister and his nurse and case management History Interval history: Evaluation seen and examined medical records reviewed Patient was admitted with bilateral heel ulcers, evaluated by wound care surgeon Dr. Cardenas Recommended surgical intervention Patient was recently admitted to [facility] and was advised antifungal Cresemba, Not available in our pharmacy, and patient and his family mainly his sister were very angry and upset And do not want any other alternative antifungals, ID consulted Patient feels better no new complaints Vital signs noted Hospitalist Physical - Constitutional Vitals: Temp Pulse Resp BP Pulse Ox 99.3 F 64 18 111/62 97 01/04/18 04:35 01/04/18 10:55 01/04/18 05:33 01/04/18 10:55 01/04/18 10:00 General appearance: Present: no acute distress, well-nourished, other (ill looking) - EENT Eyes: Present: PERRL, EOM intact - Neck Neck: Present: supple, normal ROM - Respiratory Respiratory effort: normal Respiratory: bilateral: diminished, negative: rales, rhonchi, wheezing - Cardiovascular Rhythm: regular Heart Sounds: Present: S1 & S2 - Extremities Extremities: abnormal (bilateral heel ulcers, infected with purulent discharge and necrotic tissue) - Abdominal General gastrointestinal: soft, non-tender, non-distended, normal bowel sounds - Integumentary Integumentary: Present: clear, warm - Psychiatric Psychiatric: appropriate mood/affect, cooperative - Neurologic Neurologic: moves all extremities Results - Labs CBC & Chem 7: 01/05/18 04:01 01/05/18 04:01 Labs: Laboratory Last Values WBC 9.4 K/mm3 (4.5-11.0) 01/04/18 05:04 RBC 3.64 M/mm3 (3.65-5.03) L 01/04/18 05:04 Hgb 11.9 gm/dl (11.8-15.2) 01/04/18 05:04 Hct 35.4 % (35.5-45.6) L 01/04/18 05:04 MCV 97 fl (84-94) H 01/04/18 05:04 MCH 33 pg (28-32) H 01/04/18 05:04 MCHC 34 % (32-34) 01/04/18 05:04 RDW 16.2 % (13.2-15.2) H 01/04/18 05:04 Plt Count 274 K/mm3 (140-440) 01/04/18 05:04 Lymph % (Auto) 9.1 % (13.4-35.0) L 01/03/18 01:45 [place] % (Auto) [employer] 01/04/18 05:04 Eos % (Auto) 1.6 % (0.0-4.3) 01/03/18 01:45 Baso % (Auto) 0.4 % (0.0-1.8) 01/03/18 01:45 Lymph # 0.9 K/mm3 (1.2-5.4) L 01/03/18 01:45 [place] # 1.3 K/mm3 (0.0-0.8) H 01/03/18 01:45 Eos # 0.2 K/mm3 (0.0-0.4) 01/03/18 01:45 Baso # 0.0 K/mm3 (0.0-0.1) 01/03/18 01:45 Add Manual Diff Complete 01/04/18 05:04 Total Counted 100 01/04/18 05:04 Seg Neutrophils % 75.8 % (40.0-70.0) H 01/03/18 01:45 Seg Neuts % (Manual) 72.0 % (40.0-70.0) H 01/04/18 05:04 Band Neutrophils % 1.0 % 01/04/18 05:04 Lymphocytes % (Manual) 11.0 % (13.4-35.0) L 01/04/18 05:04 Reactive Lymphs % (Man) 0 % 01/04/18 05:04 Monocytes % (Manual) 9.0 % (0.0-7.3) H 01/04/18 05:04 Eosinophils % (Manual) 6.0 % (0.0-4.3) H 01/04/18 05:04 Basophils % (Manual) 0 % (0.0-1.8) 01/04/18 05:04 Metamyelocytes % 0 % 01/04/18 05:04 Myelocytes % 0 % 01/04/18 05:04 Promyelocytes % 1.0 % 01/04/18 05:04 Blast Cells % 0 % 01/04/18 05:04 Nucleated RBC % Not Reportable 01/04/18 05:04 Seg Neutrophils # 7.8 K/mm3 (1.8-7.7) H 01/03/18 01:45 Seg Neutrophils # Man 6.8 K/mm3 (1.8-7.7) 01/04/18 05:04 Band Neutrophils # 0.1 K/mm3 01/04/18 05:04 Lymphocytes # (Manual) 1.0 K/mm3 (1.2-5.4) L 01/04/18 05:04 Abs React Lymphs (Man) 0.0 K/mm3 01/04/18 05:04 Monocytes # (Manual) 0.8 K/mm3 (0.0-0.8) 01/04/18 05:04 Eosinophils # (Manual) 0.6 K/mm3 (0.0-0.4) H 01/04/18 05:04 Basophils # (Manual) 0.0 K/mm3 (0.0-0.1) 01/04/18 05:04 Metamyelocytes # 0.0 K/mm3 01/04/18 05:04 Myelocytes # 0.0 K/mm3 01/04/18 05:04 Promyelocytes # 0.1 K/mm3 01/04/18 05:04 Blast Cells # 0.0 K/mm3 01/04/18 05:04 WBC Morphology Not Reportable 01/04/18 05:04 Hypersegmented Neuts Not Reportable 01/04/18 05:04 Hyposegmented Neuts Not Reportable 01/04/18 05:04 Hypogranular Neuts Not Reportable 01/04/18 05:04 Smudge Cells Not Reportable 01/04/18 05:04 Toxic Granulation Not Reportable 01/04/18 05:04 Toxic Vacuolation Not Reportable 01/04/18 05:04 Dohle Bodies Not Reportable 01/04/18 05:04 Pelger-Huet Anomaly Not Reportable 01/04/18 05:04 Sherly Rods Not Reportable 01/04/18 05:04 Platelet Estimate Consistent w auto 01/04/18 05:04 Clumped Platelets Not Reportable 01/04/18 05:04 Plt Clumps, EDTA Not Reportable 01/04/18 05:04 Large Platelets Not Reportable 01/04/18 05:04 Giant Platelets Not Reportable 01/04/18 05:04 Platelet Satelliting Not Reportable 01/04/18 05:04 Plt Morphology Comment Not Reportable 01/04/18 05:04 RBC Morphology Not Reportable 01/04/18 05:04 Dimorphic RBCs Not Reportable 01/04/18 05:04 Polychromasia Not Reportable 01/04/18 05:04 Hypochromasia Not Reportable 01/04/18 05:04 Poikilocytosis Not Reportable 01/04/18 05:04 Anisocytosis 1+ 01/04/18 05:04 Microcytosis Few 01/04/18 05:04 Macrocytosis Not Reportable 01/04/18 05:04 Spherocytes Not Reportable 01/04/18 05:04 Pappenheimer Bodies Not Reportable 01/04/18 05:04 Sickle Cells Not Reportable 01/04/18 05:04 Target Cells Not Reportable 01/04/18 05:04 Tear Drop Cells Not Reportable 01/04/18 05:04 Ovalocytes Not Reportable 01/04/18 05:04 Helmet Cells Not Reportable 01/04/18 05:04 [place] Bodies Not Reportable 01/04/18 05:04 Raymond Rings Not Reportable 01/04/18 05:04 [place] Cells Not Reportable 01/04/18 05:04 Bite Cells Not Reportable 01/04/18 05:04 Crenated Cell Not Reportable 01/04/18 05:04 Elliptocytes Not Reportable 01/04/18 05:04 Acanthocytes (Spur) Not Reportable 01/04/18 05:04 Rouleaux Not Reportable 01/04/18 05:04 Hemoglobin C Crystals Not Reportable 01/04/18 05:04 Schistocytes Not Reportable 01/04/18 05:04 Malaria parasites Not Reportable 01/04/18 05:04 Owen Bodies Not Reportable 01/04/18 05:04 Hem Pathologist Commnt No 01/04/18 05:04 PT 13.3 Sec. (12.2-14.9) 01/03/18 01:45 INR 0.96 (0.87-1.13) 01/03/18 01:45 APTT 32.2 Sec. (24.2-36.6) 01/03/18 01:45 Sodium 135 mmol/L (137-145) L 01/04/18 05:04 Potassium 4.6 mmol/L (3.6-5.0) 01/04/18 05:04 Chloride 102.8 mmol/L (98-107) 01/04/18 05:04 Carbon Dioxide 20 mmol/L (22-30) L 01/04/18 05:04 Anion Gap 17 mmol/L 01/04/18 05:04 BUN 54 mg/dL (9-20) H 01/04/18 05:04 Creatinine 1.2 mg/dL (0.8-1.5) 01/04/18 05:04 Estimated GFR > 60 ml/min 01/04/18 05:04 BUN/Creatinine Ratio 45 % 01/04/18 05:04 Glucose 144 mg/dL (75-100) H 01/04/18 05:04 POC Glucose 215 (70-105) H 01/04/18 12:39 Hemoglobin A1c 5.9 % (4-6) 01/04/18 05:04 Calcium 8.8 mg/dL (8.4-10.2) 01/04/18 05:04 Phosphorus 2.30 mg/dL (2.5-4.5) L 01/03/18 14:20 Magnesium 2.00 mg/dL (1.7-2.3) 01/03/18 14:20 Total Bilirubin 0.20 mg/dL (0.1-1.2) 01/04/18 05:04 AST 70 units/L (5-40) H 01/04/18 05:04 ALT 71 units/L (7-56) H 01/04/18 05:04 Alkaline Phosphatase 511 units/L (35-129) H 01/04/18 05:04 NT-Pro-B Natriuret Pep 1851 pg/mL (0-900) H 01/03/18 14:20 Total Protein 6.7 g/dL (6.3-8.2) 01/04/18 05:04 Albumin 3.1 g/dL (3.9-5) L 01/04/18 05:04 Albumin/Globulin Ratio 0.9 % 01/04/18 05:04 Urine Color Yellow (Yellow) 01/04/18 02:46 Urine Turbidity Clear (Clear) 01/04/18 02:46 Urine pH 6.0 (5.0-7.0) 01/04/18 02:46 Ur Specific [place] 1.011 (1.003-1.030) 01/04/18 02:46 Urine Protein 30 mg/dl mg/dL (Negative) 01/04/18 02:46 Urine Glucose (UA) 50 mg/dL (Negative) 01/04/18 02:46 Urine Ketones Neg mg/dL (Negative) 01/04/18 02:46 Urine Blood Neg (Negative) 01/04/18 02:46 Urine Nitrite Neg (Negative) 01/04/18 02:46 Urine Bilirubin Neg (Negative) 01/04/18 02:46 Urine Urobilinogen < 2.0 mg/dL (<2.0) 01/04/18 02:46 Ur Leukocyte Esterase Neg (Negative) 01/04/18 02:46 Urine WBC (Auto) 1.0 /HPF (0.0-6.0) 01/04/18 02:46 Urine RBC (Auto) < 1.0 /HPF (0.0-6.0) 01/04/18 02:46 Urine Creatinine 28.3 mg/dL (0.1-20.0) H 01/04/18 02:46 Urine Sodium 83 mmol/L 01/04/18 02:46 Urine Urea Nitrogen 687 01/04/18 02:46
--- NOTE | 2018-01-04 14:29 | Consultation ---
History of Present Illness - Reason for Consult Consult date: 01/04/18 PAD with Ulceration Requesting physician: ALBER SANTOYO - History of Present Illness This patient is a 62-year-old man that was admitted via the emergency room on due to bleeding from his right foot ulcer. He has bilateral lower extremity heel ulcers. He was evaluated by the wound care surgeon. Arterial duplex ultrasounds were ordered. The preliminary report suggests possible underlying peripheral arterial disease. A vascular surgery consult has been requested to further evaluate. The patient states that he was recently admitted to [facility]. He suggested that he had some sort of vascular procedure performed at that time ( though this has not been confirmed, and he was unclear about what type of procedure). Review of his current medical records suggests that he was treated for a fungal infection. He was ultimately discharged to a rehab facility. He developed bleeding with a dressing change to his right foot wound. This prompted him to be sent to the emergency room at [facility]. The patient states he is ambulatory and was walking 2 days ago. Past History Past Medical History: ESRD (s/p transplant), hepatitis, other (s/p renal transplant) Past Surgical History: Other (kidney transplant) Social history: no significant social history Family history: other (unknown) Medications and Allergies Allergies Allergy/AdvReac Type Severity Reaction Status Date / Time No Known Allergies Allergy Unverified 11/27/16 09:39 Home Medications Medication Instructions Recorded Confirmed Last Taken Type Aspirin [Aspirin BABY CHEW TAB] 81 mg PO QDAY 01/03/18 01/03/18 01/02/18 History Atovaquone [Mepron] 10 ml PO QHS 01/03/18 01/03/18 01/02/18 History Carvedilol [Coreg] 6.25 mg PO BID 01/03/18 01/03/18 01/02/18 History Cholecalciferol (Vitamin D3) 2,000 unit PO DAILY 01/03/18 01/03/18 1 Day Ago History [Vitamin D3] ~01/02/18 Collagenase [Santyl] 1 applicatio TP QDAY 01/03/18 01/03/18 1 Day Ago History ~01/02/18 Dextrose [Glucose Gel] 38 gm PO PRN PRN 01/03/18 01/03/18 Unknown History Docusate Sodium [Colace] 100 mg PO BID PRN 01/03/18 01/03/18 01/02/18 History Entecavir 0.5 mg PO DAILY 01/03/18 01/03/18 01/02/18 History Furosemide [Lasix TAB] 40 mg PO QDAY 01/03/18 01/03/18 01/02/18 History Heparin Sodium,Porcine [Heparin 5,000 units SUB-Q Q8HR 01/03/18 01/03/18 History Sodium] Hydralazine HCl 50 mg PO TID 01/03/18 01/03/18 01/02/18 History Insulin Glargine,Hum.rec.anlog 17 unit SQ QHS 01/03/18 01/03/18 01/02/18 History [Basaglar Kwikpen U-100] Isavuconazonium Sulfate [Cresemba] 372 mg PO DAILY 01/03/18 01/03/18 01/02/18 History Multivit-Min/Iron Fum/Folic AC 1 each PO DAILY 01/03/18 01/03/18 1 Day Ago History [Cdxyy-Olftchq-Vsllblgn Tablet] ~01/02/18 NIFEdipine [Nifedipine ER] 60 mg PO BID 01/03/18 01/03/18 1 Day Ago History ~01/02/18 Pantoprazole [Protonix] 40 mg PO QDAY 01/03/18 01/03/18 1 Day Ago History ~01/02/18 Pregabalin [Lyrica] 25 mg PO Q8HR 01/03/18 01/03/18 1 Day Ago History ~01/02/18 Simethicone [Gas Relief] 80 mg PO PRN 01/03/18 01/03/18 Unknown History Sodium Bicarbonate 650 mg PO BID 01/03/18 01/03/18 1 Day Ago History ~01/02/18 Sodium Chloride/Aloe Vera [Armstrong 22 ml NS Q6HR 01/03/18 01/03/18 01/02/18 History Saline Nasal Gel Taiban] oxyCODONE /ACETAMINOPHEN [Percocet 1 tab PO Q6HR PRN 01/03/18 01/03/18 Unknown History 5/325] predniSONE [Deltasone] 10 mg PO QDAY 01/03/18 01/03/18 1 Day Ago History ~01/02/18 Active Meds: Active Medications Acetaminophen (Tylenol) 650 mg PO Q4H PRN PRN Reason: Pain MILD(1-3)/Fever >100.5/PORTILLO Last Admin: 01/03/18 11:00 Dose: 650 mg Aspirin (Baby Aspirin) 81 mg PO QDAY [facility] Last Admin: 01/04/18 10:55 Dose: 81 mg Atovaquone (Mepron) 1,500 mg PO QHS [facility] Last Admin: 01/03/18 21:35 Dose: 1,500 mg Carvedilol (Coreg) 6.25 mg PO BID [facility] Last Admin: 01/04/18 10:55 Dose: 6.25 mg Cholecalciferol (Vitamin D3) 2,000 unit PO DAILY [facility] Last Admin: 01/04/18 10:56 Dose: 2,000 unit Collagenase (Santyl) 1 applic TP QDAY [facility] Last Admin: 01/04/18 10:57 Dose: Not Given Docusate Sodium (Colace) 100 mg PO BID PRN PRN Reason: Constipation Heparin Sodium (Porcine) (Heparin) 5,000 unit SUB-Q Q8HR [facility] Last Admin: 01/04/18 05:34 Dose: 5,000 unit Hydralazine HCl (Apresoline) 25 mg PO Q8HR [facility] Last Admin: 01/04/18 05:34 Dose: 25 mg Sodium Chloride (Nacl 0.9% 1000 Ml) 1,000 mls @ 100 mls/hr IV DIRECT [facility] Last Admin: 01/04/18 02:43 Dose: 100 mls/hr Insulin Glargine (Lantus) 17 units SUB-Q QHS [facility] Last Admin: 01/03/18 21:37 Dose: 17 units Miscellaneous Medication (Entecavir [Entecavir]) 0.5 mg PO DAILY [facility] Miscellaneous Medication (Isavuconazonium Sulfate [Cresemba]) 372 mg PO DAILY [facility] Multivitamins/Minerals (Theragran-M Tab) 1 each PO QDAY [facility] Last Admin: 01/04/18 10:56 Dose: 1 each Nifedipine (Procardia Xl) 60 mg PO BID [facility] Last Admin: 01/04/18 10:56 Dose: 60 mg Ondansetron HCl (Zofran) 4 mg IV Q8H PRN PRN Reason: Nausea And Vomiting Oxycodone/Acetaminophen (Percocet 5/325) 1 tab PO Q6HR PRN PRN Reason: Pain Last Admin: 01/04/18 08:28 Dose: 1 tab Pantoprazole Sodium (Protonix) 40 mg PO QDAY [facility] Last Admin: 01/04/18 10:55 Dose: 40 mg Prednisone (Deltasone) 10 mg PO QDAY [facility] Last Admin: 01/04/18 10:59 Dose: 10 mg Pregabalin (Lyrica) 25 mg PO Q8HR [facility] Last Admin: 01/04/18 05:34 Dose: 25 mg Simethicone (Mylicon) 80 mg PO PRN [facility] Last Admin: 01/03/18 17:39 Dose: 80 mg Sodium Bicarbonate (Sodium Bicarbonate) 650 mg PO BID [facility] Last Admin: 01/04/18 10:55 Dose: 650 mg Sodium Chloride (Sodium Chloride Flush Syringe 10 Ml) 10 ml IV BID [facility] Last Admin: 01/04/18 10:56 Dose: 10 ml Sodium Chloride (Sodium Chloride Flush Syringe 10 Ml) 10 ml IV PRN PRN PRN Reason: LINE FLUSH Sodium Chloride (Armstrong Saline) 1 applic NS Q6HR [facility] Last Admin: 01/04/18 11:10 Dose: 1 applic Sodium Hypochlorite (Dakin's Half Strength) 1 applic TP BID [facility] Last Admin: 01/04/18 10:52 Dose: 1 applicatio Review of Systems All systems: negative Exam - Constitutional Vitals: Temp Pulse Resp BP Pulse Ox 99.3 F 64 18 111/62 97 01/04/18 04:35 01/04/18 10:55 01/04/18 05:33 01/04/18 10:55 01/04/18 10:00 General appearance: Present: no acute distress - EENT Eyes: Present: EOM intact ENT: hearing intact - Respiratory Respiratory effort: normal - Extremities Extremity abnormal: ulceration (he has bilateral heel ulcerations, right significantly worse than the left. He has exposed calcaneal bones on the right with blackened necrotic tissue. The skin has eroded away to his mid foot. He has an ulceration over the left heel as well. The wound base is yellow covered and slough no obvious granulation tissue appreciated. Please see ET nurse pictures.), pulses diminished (palpable popliteal pulses bilaterally, with nonpalpable pedal pulses.) - Psychiatric Psychiatric: cooperative - Neurologic Neurologic: other (decreased sensation to both feet) Results - Labs CBC & Chem 7: 01/04/18 05:04 01/04/18 05:04 Labs: Abnormal lab results 01/03/18 01/03/18 01/04/18 Range/Units 14:20 21:38 02:46 RBC (3.65-5.03) M/mm3 Hct (35.5-45.6) % MCV (84-94) fl MCH (28-32) pg RDW (13.2-15.2) % Seg Neuts % (Manual) (40.0-70.0) % Lymphocytes % (Manual) (13.4-35.0) % Monocytes % (Manual) (0.0-7.3) % Eosinophils % (Manual) (0.0-4.3) % Lymphocytes # (Manual) (1.2-5.4) K/mm3 Eosinophils # (Manual) (0.0-0.4) K/mm3 Sodium (137-145) mmol/L Carbon Dioxide 20 L (22-30) mmol/L BUN 67 H (9-20) mg/dL Glucose 109 H (75-100) mg/dL POC Glucose 204 H (70-105) Phosphorus 2.30 L (2.5-4.5) mg/dL AST (5-40) units/L ALT (7-56) units/L Alkaline Phosphatase (35-129) units/L NT-Pro-B Natriuret Pep 1851 H (0-900) pg/mL Albumin (3.9-5) g/dL Urine Creatinine 28.3 H (0.1-20.0) mg/dL 01/04/18 01/04/18 01/04/18 Range/Units 05:04 05:04 07:46 RBC 3.64 L (3.65-5.03) M/mm3 Hct 35.4 L (35.5-45.6) % MCV 97 H (84-94) fl MCH 33 H (28-32) pg RDW 16.2 H (13.2-15.2) % Seg Neuts % (Manual) 72.0 H (40.0-70.0) % Lymphocytes % (Manual) 11.0 L (13.4-35.0) % Monocytes % (Manual) 9.0 H (0.0-7.3) % Eosinophils % (Manual) 6.0 H (0.0-4.3) % Lymphocytes # (Manual) 1.0 L (1.2-5.4) K/mm3 Eosinophils # (Manual) 0.6 H (0.0-0.4) K/mm3 Sodium 135 L (137-145) mmol/L Carbon Dioxide 20 L (22-30) mmol/L BUN 54 H (9-20) mg/dL Glucose 144 H (75-100) mg/dL POC Glucose 127 H (70-105) Phosphorus (2.5-4.5) mg/dL AST 70 H (5-40) units/L ALT 71 H (7-56) units/L Alkaline Phosphatase 511 H (35-129) units/L NT-Pro-B Natriuret Pep (0-900) pg/mL Albumin 3.1 L (3.9-5) g/dL Urine Creatinine (0.1-20.0) mg/dL 01/04/18 Range/Units 12:39 RBC (3.65-5.03) M/mm3 Hct (35.5-45.6) % MCV (84-94) fl MCH (28-32) pg RDW (13.2-15.2) % Seg Neuts % (Manual) (40.0-70.0) % Lymphocytes % (Manual) (13.4-35.0) % Monocytes % (Manual) (0.0-7.3) % Eosinophils % (Manual) (0.0-4.3) % Lymphocytes # (Manual) (1.2-5.4) K/mm3 Eosinophils # (Manual) (0.0-0.4) K/mm3 Sodium (137-145) mmol/L Carbon Dioxide (22-30) mmol/L BUN (9-20) mg/dL Glucose (75-100) mg/dL POC Glucose 215 H (70-105) Phosphorus (2.5-4.5) mg/dL AST (5-40) units/L ALT (7-56) units/L Alkaline Phosphatase (35-129) units/L NT-Pro-B Natriuret Pep (0-900) pg/mL Albumin (3.9-5) g/dL Urine Creatinine (0.1-20.0) mg/dL Assessment and Plan This patient was admitted due to bilateral heel ulcerations. The wounds appear to be decubitus in nature. He has significant tissue loss on the right with exposed calcaneal bone. This foot does not appear to be salvageable. His left lower extremity is also ulcerated at the heel. He had an arterial duplex completed. The official report is pending. The images were reviewed. He appears to have monophasic flow from his mid SFA distally. Any attempt at percutaneous revascularization poses a risk of contrast nephropathy. He is status post a kidney transplant. Given the extent of tissue loss on the right, would not recommend arteriogram for his leg at this time. Amputation is reasonable. The Wound care surgeon is planning to discuss with the family. He is immunocompromised (due to kidney transplant/ immunosuppression, and chronic medical conditions), and is at significant risk of sepsis.
--- NOTE | 2018-01-04 14:54 | Vascular Lab Report ---
LOWER EXTREMITY ARTERIAL DUPLEX: REASON FOR EXAM: Bilateral leg ulcers. COMMENTS ON THE RIGHT: Triphasic waveforms are seen proximally. Monophasic waveforms are seen distally. The superficial femoral artery appears to be patent. Scattered plaque is seen throughout. Findings are consistent with abnormal perfusion. Findings are not consistent with the ability to heal distal wounds. COMMENTS ON THE LEFT: Triphasic waveforms are seen proximally. Triphasic waveforms are seen distally. No significant velocity gradients are identified. No significant plaque is identified. Findings are consistent with normal perfusion. Findings are consistent with the ability to heal distal wounds. IMPRESSION: RIGHT: Compromised arterial flow, especially below the level of the knee. Recommend further evaluation. LEFT:Essentially normal arterial flow.
--- NOTE | 2018-01-04 16:15 | Progress Note ---
Assessment and Plan Acute Kidney injury likely Prerenal/ATN: Renal Transplant: -Renal function reviewed, SCr level was 1.2 today, yesterday's SCr level was 1.4 -Renal US of Tx kidney shows WNLs -Per recent d/c med list from [facility], pt only on predisone 10 mg daily, per family he was taken off tacro/Cellcept due to fungal sinus infection -CXR on 01/03/18 showed mild pulmonary vascular congestion, mild blunting of right costophrenic angle may represent trace pleural effusion -D/C 0.9% NS infusion -Renally dose all meds and avoid nephrotoxic meds -Hardin Catheter: No -Renal plan d/w Dr Beaver Non-Anion Gap Metabolic acidosis: -On sodium bicarbonate 650 mg orally BID Bilateral Foot wounds: -Wound care -ID consulted Fungal Sinus infection: -Can continue outpatient anti-fungal medication -ID consulted. f/u recs Hepatitis C infection: -Can continue Entacavir History Essential Hypertension: -Continue on current regimen Diabetes Mellitus type 2 on insulin: -On insulin -As per primary Subjective Date of service: 01/04/18 Interval history: Pt seen sitting up on the side of the bed, denies shortness of breath, family at bedside Objective - Vital Signs Vital signs: Vital Signs - 12hr 01/04/18 01/04/18 01/04/18 04:35 05:33 05:34 Temperature 99.3 F Pulse Rate 70 71 71 Respiratory 24 18 Rate Blood Pressure 131/64 126/64 126/64 O2 Sat by Pulse 94 95 Oximetry 01/04/18 01/04/18 10:00 10:55 Temperature Pulse Rate 64 Respiratory Rate Blood Pressure 111/62 O2 Sat by Pulse 97 Oximetry - General Appearance General appearance: well-nourished (no acute distress) EENT: ATNC Neck: no JVD Respiratory: Present: Decreased Breath Sounds Cardiology: regular, S1S2 Gastrointestinal: normoactive bowel sounds Integumentary: other (bilateral foot wounds with dressing in place) Neurologic: alert and oriented x3 Musculoskeletal: other (trace edema to BLE) Psychiatric: cooperative - Lab 01/04/18 05:04 01/04/18 05:04 Most recent lab results Calcium 8.8 mg/dL (8.4-10.2) 01/04/18 05:04 Phosphorus 2.30 mg/dL (2.5-4.5) L 01/03/18 14:20 Magnesium 2.00 mg/dL (1.7-2.3) 01/03/18 14:20 Urine Creatinine 28.3 mg/dL (0.1-20.0) H 01/04/18 02:46 Urine Sodium 83 mmol/L 01/04/18 02:46
--- NOTE | 2018-01-04 16:19 | Consultation ---
History of Present Illness - Reason for Consult Consult date: 01/04/18 s/p Renal Transplant, Antifungals/Bilateral heel ulcers Requesting physician: AGNES TEMPLETON - History of Present Illness This patient is a 62 year old male with a history of chronic wound ulcers, DM type 2, hypertension, hepatitis B and C, ESRD S/P Renal transplant in 11/02/16 at [facility]. He currently resides in a fpc where he receives wound care for bilateral wound ulcers to feet. He was transported to the hospital my EMS on 01.03.2018 for persistent bleeding to the right foot wound, Pt also report chronic bilateral heel ulcer and pain, pt states that the pain is worse with manipulation and with any movement. He denies any recent illness, he denies fever, denies chills, denies GI symptoms, denies headache or dizziness. In the ER his lab study revealed an elevated BUN/Creat, elevated LFTs , pt nephrology was consulted and he was admitted for further evaluation. Patient is currently on Cresemba for fungal sinusitis. This medication is not on hospital formulary, Hence Infectious Disease was consulted. Patient and his sister at bedside are very upset about not having medication. ROS: General: fevers and chills negative HEENT: no new visual disturbance Respiratory: No cough, sputum, hemoptysis or shortness of breath Cardiovascular: No chest pain, syncope Gastrointestinal: No nausea, vomiting or diarrhea Genitourinary: No dysuria or hematuria Musculoskeletal: No new or worsening neck pain or back pain Neurologic: No headaches, seizures Hematologic: Bilateral bleeding heel ulcerations Endocrine: No night sweats or acute weight loss Skin: negative for rash, jaundice Psychiatric: No suicidal or homicidal ideation Past History Past Medical History: ESRD (s/p transplant), hepatitis, other (s/p renal transplant) Past Surgical History: Other (kidney transplant) Social history: no significant social history Family history: other (unknown) Medications and Allergies Allergies Allergy/AdvReac Type Severity Reaction Status Date / Time No Known Allergies Allergy Unverified 11/27/16 09:39 Home Medications Medication Instructions Recorded Confirmed Last Taken Type Aspirin [Aspirin BABY CHEW TAB] 81 mg PO QDAY 01/03/18 01/03/18 01/02/18 History Atovaquone [Mepron] 10 ml PO QHS 01/03/18 01/03/18 01/02/18 History Carvedilol [Coreg] 6.25 mg PO BID 01/03/18 01/03/18 01/02/18 History Cholecalciferol (Vitamin D3) 2,000 unit PO DAILY 01/03/18 01/03/18 1 Day Ago History [Vitamin D3] ~01/02/18 Collagenase [Santyl] 1 applicatio TP QDAY 01/03/18 01/03/18 1 Day Ago History ~01/02/18 Dextrose [Glucose Gel] 38 gm PO PRN PRN 01/03/18 01/03/18 Unknown History Docusate Sodium [Colace] 100 mg PO BID PRN 01/03/18 01/03/18 01/02/18 History Entecavir 0.5 mg PO DAILY 01/03/18 01/03/18 01/02/18 History Furosemide [Lasix TAB] 40 mg PO QDAY 01/03/18 01/03/18 01/02/18 History Heparin Sodium,Porcine [Heparin 5,000 units SUB-Q Q8HR 01/03/18 01/03/18 History Sodium] Hydralazine HCl 50 mg PO TID 01/03/18 01/03/18 01/02/18 History Insulin Glargine,Hum.rec.anlog 17 unit SQ QHS 01/03/18 01/03/18 01/02/18 History [Basaglar Kwikpen U-100] Isavuconazonium Sulfate [Cresemba] 372 mg PO DAILY 01/03/18 01/03/18 01/02/18 History Multivit-Min/Iron Fum/Folic AC 1 each PO DAILY 01/03/18 01/03/18 1 Day Ago History [Phfyw-Cuzgzei-Tbapzwfq Tablet] ~01/02/18 NIFEdipine [Nifedipine ER] 60 mg PO BID 01/03/18 01/03/18 1 Day Ago History ~01/02/18 Pantoprazole [Protonix] 40 mg PO QDAY 01/03/18 01/03/18 1 Day Ago History ~01/02/18 Pregabalin [Lyrica] 25 mg PO Q8HR 01/03/18 01/03/18 1 Day Ago History ~01/02/18 Simethicone [Gas Relief] 80 mg PO PRN 01/03/18 01/03/18 Unknown History Sodium Bicarbonate 650 mg PO BID 01/03/18 01/03/18 1 Day Ago History ~01/02/18 Sodium Chloride/Aloe Vera [Marion 22 ml NS Q6HR 01/03/18 01/03/18 01/02/18 History Saline Nasal Gel [place]] oxyCODONE /ACETAMINOPHEN [Percocet 1 tab PO Q6HR PRN 01/03/18 01/03/18 Unknown History 5/325] predniSONE [Deltasone] 10 mg PO QDAY 01/03/18 01/03/18 1 Day Ago History ~01/02/18 Isavuconazonium Sulfate [Cresemba] 372 mg PO DAILY #4 capsule 01/04/18 Unknown Rx Active Meds: Active Medications Acetaminophen (Tylenol) 650 mg PO Q4H PRN PRN Reason: Pain MILD(1-3)/Fever >100.5/PORTILLO Last Admin: 01/03/18 11:00 Dose: 650 mg Aspirin (Baby Aspirin) 81 mg PO QDAY [facility] Last Admin: 01/04/18 10:55 Dose: 81 mg Atovaquone (Mepron) 1,500 mg PO QHS [facility] Last Admin: 01/03/18 21:35 Dose: 1,500 mg Carvedilol (Coreg) 6.25 mg PO BID [facility] Last Admin: 01/04/18 10:55 Dose: 6.25 mg Cholecalciferol (Vitamin D3) 2,000 unit PO DAILY [facility] Last Admin: 01/04/18 10:56 Dose: 2,000 unit Collagenase (Santyl) 1 applic TP QDAY [facility] Last Admin: 01/04/18 10:57 Dose: Not Given Docusate Sodium (Colace) 100 mg PO BID PRN PRN Reason: Constipation Heparin Sodium (Porcine) (Heparin) 5,000 unit SUB-Q Q8HR [facility] Last Admin: 01/04/18 14:42 Dose: 5,000 unit Hydralazine HCl (Apresoline) 25 mg PO Q8HR [facility] Last Admin: 01/04/18 14:41 Dose: 25 mg Sodium Chloride (Nacl 0.9% 1000 Ml) 1,000 mls @ 100 mls/hr IV DIRECT [facility] Last Admin: 01/04/18 14:41 Dose: 100 mls/hr Insulin Glargine (Lantus) 17 units SUB-Q QHS [facility] Last Admin: 01/03/18 21:37 Dose: 17 units Miscellaneous Medication (Entecavir [Entecavir]) 0.5 mg PO DAILY [facility] Miscellaneous Medication (Isavuconazonium Sulfate [Cresemba]) 372 mg PO DAILY [facility] Multivitamins/Minerals (Theragran-M Tab) 1 each PO QDAY [facility] Last Admin: 01/04/18 10:56 Dose: 1 each Nifedipine (Procardia Xl) 60 mg PO BID [facility] Last Admin: 01/04/18 10:56 Dose: 60 mg Ondansetron HCl (Zofran) 4 mg IV Q8H PRN PRN Reason: Nausea And Vomiting Oxycodone/Acetaminophen (Percocet 5/325) 1 tab PO Q6HR PRN PRN Reason: Pain Last Admin: 01/04/18 08:28 Dose: 1 tab Pantoprazole Sodium (Protonix) 40 mg PO QDAY [facility] Last Admin: 01/04/18 10:55 Dose: 40 mg Prednisone (Deltasone) 10 mg PO QDAY [facility] Last Admin: 01/04/18 10:59 Dose: 10 mg Pregabalin (Lyrica) 25 mg PO Q8HR [facility] Last Admin: 01/04/18 14:42 Dose: 25 mg Simethicone (Mylicon) 80 mg PO PRN [facility] Last Admin: 01/03/18 17:39 Dose: 80 mg Sodium Bicarbonate (Sodium Bicarbonate) 650 mg PO BID [facility] Last Admin: 01/04/18 10:55 Dose: 650 mg Sodium Chloride (Sodium Chloride Flush Syringe 10 Ml) 10 ml IV BID [facility] Last Admin: 01/04/18 10:56 Dose: 10 ml Sodium Chloride (Sodium Chloride Flush Syringe 10 Ml) 10 ml IV PRN PRN PRN Reason: LINE FLUSH Sodium Chloride (Marion Saline) 1 applic NS Q6HR [facility] Last Admin: 01/04/18 11:10 Dose: 1 applic Sodium Hypochlorite (Dakin's Half Strength) 1 applic TP BID [facility] Last Admin: 01/04/18 10:52 Dose: 1 applicatio Physical Examination - Physical Exam Narrative exam: Constitutional: Alert, cooperative. slightly agitated Head, Ears, Nose: Normocephalic, atraumatic. External ears, nose normal Eyes: Conjunctivae/corneas clear. No icterus. No ptosis. Neck: Supple, no meningeal signs Oral: dentition fair, no thrush Cardiovascular: S1, S2 normal. Respiratory: Good air entry, clear to auscultation bilaterally GI: Soft, non-tender; bowel sounds normal. No peritoneal signs Musculoskeletal: No pedal edema, no cyanosis. Skin: bilateral heel ulcers, R>L, right side is about 10 in size with exposed bone, dressing + Hem/Lymphatic: No palpable cervical or supraclavicular nodes. No lymphangitis Psych: Mood ok. Affect slightly agitated Neurological: Awake, alert, oriented. No gross abnormality - Constitutional Vitals: Vital Signs Temp Pulse Resp BP Pulse Ox 99.3 F 64 18 111/62 97 01/04/18 04:35 01/04/18 10:55 01/04/18 05:33 01/04/18 10:55 01/04/18 10:00 Temperature -Last 24 Hours Temperature 99.3 F Temperature 99.6 F Temperature 99.6 F Temperature 99.0 F Temperature 98.4 F Temperature 97.7 F Results - Labs CBC & Chem 7: 01/04/18 05:04 01/04/18 05:04 Labs: Abnormal lab results 01/03/18 01/04/18 01/04/18 Range/Units 21:38 02:46 05:04 RBC 3.64 L (3.65-5.03) M/mm3 Hct 35.4 L (35.5-45.6) % MCV 97 H (84-94) fl MCH 33 H (28-32) pg RDW 16.2 H (13.2-15.2) % Seg Neuts % (Manual) 72.0 H (40.0-70.0) % Lymphocytes % (Manual) 11.0 L (13.4-35.0) % Monocytes % (Manual) 9.0 H (0.0-7.3) % Eosinophils % (Manual) 6.0 H (0.0-4.3) % Lymphocytes # (Manual) 1.0 L (1.2-5.4) K/mm3 Eosinophils # (Manual) 0.6 H (0.0-0.4) K/mm3 Sodium (137-145) mmol/L Carbon Dioxide (22-30) mmol/L BUN (9-20) mg/dL Glucose (75-100) mg/dL POC Glucose 204 H (70-105) AST (5-40) units/L ALT (7-56) units/L Alkaline Phosphatase (35-129) units/L Albumin (3.9-5) g/dL Urine Creatinine 28.3 H (0.1-20.0) mg/dL 01/04/18 01/04/18 01/04/18 Range/Units 05:04 07:46 12:39 RBC (3.65-5.03) M/mm3 Hct (35.5-45.6) % MCV (84-94) fl MCH (28-32) pg RDW (13.2-15.2) % Seg Neuts % (Manual) (40.0-70.0) % Lymphocytes % (Manual) (13.4-35.0) % Monocytes % (Manual) (0.0-7.3) % Eosinophils % (Manual) (0.0-4.3) % Lymphocytes # (Manual) (1.2-5.4) K/mm3 Eosinophils # (Manual) (0.0-0.4) K/mm3 Sodium 135 L (137-145) mmol/L Carbon Dioxide 20 L (22-30) mmol/L BUN 54 H (9-20) mg/dL Glucose 144 H (75-100) mg/dL POC Glucose 127 H 215 H (70-105) AST 70 H (5-40) units/L ALT 71 H (7-56) units/L Alkaline Phosphatase 511 H (35-129) units/L Albumin 3.1 L (3.9-5) g/dL Urine Creatinine (0.1-20.0) mg/dL - Imaging and Cardiology Chest x-ray: report reviewed, image reviewed (showed no evidence of pneumonia) Assessment and Plan Cultures: no current microbiology specimens A/P: 62 year old male with chronic wound ulcers, DM type 2, hypertension, hepatitis B and C, S/P Renal transplant in 11/2016 admitted here with bilateral heel ulcers that were bleedin. Fungal sinusitis - possibly invasive. Mental status stable. Currently taking Cresemba for fungal sinusitis that was initiated at [place]. This is a non- formulary azole here at [facility]. Patient and family were very upset that they haven 't received the drug since admission. Dr. Mata advised patient and his sister at bedside that the drug is being acquired by the pharmacy and has been shipped , anticipated arrival either tonight or tomorrow AM. They do not want any alternative drug - voriconazole, etc. It would be OK for patient to take his own supply, however he doesn't have any since he came from a [place]. Prescription given by Dr. Mata per request of the patient's sister so the she can fill it at a local pharmacy. 2. Renal Transplant - off tacrolimus and cellcept. Pt only on predisone 10 mg daily, per family he was taken off meds due to fungal sinus infection. Nephrology following. 3. 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 Arterial doppler here showed compromised blood floor on the right side. Seen by Dr. Cardenas from surgery who recommended amputation, we concur. Further antimicrobials unlikely to be of additional benefit. If he develops any fever 4. 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 5. Chronic Hepatitis B and C: on Entecavir, also non-formulary. LFTs show stable mild transaminitis with elevated Alk phosphatase with normal bilirubin. Hep C status is unknown. 6. JERRICA on admission: resolved. Creatinine down to 1.2 today. Recs: - continue Cresemba 372 mg PO daily - antimicrobials unlikely to of additional benefit for the chronic right calcaneal osteomyelitis with bone exposure - resume PO Entecavir for Hep B when available Will follow along. Please call with questions. Plan discussed with Dr. Templeton. Radha Oshea NP [facility] M: [phone] O:[phone]
[2018-01-04] MEDS: HumaLOG SUB-Q SCH ×2 (18:28→22:05)
[2018-01-04] MEDS: CRESEMBA PO SCH (20:41)
[2018-01-04] MEDS: BARACLUDE PO SCH (20:41)
[2018-01-04] MEDS: MEPRON PO SCH (21:23)
[2018-01-04] MEDS: LANTUS SUB-Q SCH (22:06)
[2018-01-05 04:59] LABS: Basophils % (Auto) 0.5 % (0.0-1.8); Eosinophils # (Auto) 0.1 K/mm3 (0.0-0.4); Eosinophils % (Auto) 1.1 % (0.0-4.3); Hemoglobin 10.6 gm/dl (11.8-15.2); Lymphocytes # (Auto) 1.3 K/mm3 (1.2-5.4); Lymphocytes % (Auto) 13.1 % (13.4-35.0); Mean Corpuscular HGB Conc 33 % (32-34); Mean Corpuscular Hemoglobin 32 pg (28-32); Mean Corpuscular Volume 97 fl (84-94); Monocytes # (Auto) 1.4 K/mm3 (0.0-0.8); Monocytes % (Auto) 13.6 % (0.0-7.3); Platelet Count 256 K/mm3 (140-440); Red Blood Count 3.31 M/mm3 (3.65-5.03); Red Cell Distribution Width 15.7 % (13.2-15.2)
[2018-01-05] MEDS: LYRICA PO SCH ×2 (05:59→15:18)
[2018-01-05] MEDS: PERCOCET 5/325 PO PRN ×2 (05:59→16:39)
[2018-01-05] MEDS: APRESOLINE PO SCH ×2 (05:59→15:17)
[2018-01-05] MEDS: AYR SALINE NS SCH ×3 (06:00→16:39)
[2018-01-05] MEDS: HEPARIN SUB-Q SCH ×2 (06:01→15:18)
[2018-01-05] MEDS: HumaLOG SUB-Q SCH ×2 (08:40→15:19)
[2018-01-05] MEDS: BABY ASPIRIN PO SCH (11:39)
[2018-01-05] MEDS: DELTASONE PO SCH (11:39)
[2018-01-05] MEDS: SODIUM BICARBONATE PO SCH (11:40)
[2018-01-05] MEDS: PROTONIX PO SCH (11:40)
[2018-01-05] MEDS: VITAMIN D3 PO SCH (11:40)
[2018-01-05] MEDS: THERAGRAN-M Tab PO SCH (11:40)
[2018-01-05] MEDS: PROCARDIA XL PO SCH (11:41)
[2018-01-05] MEDS: BARACLUDE PO SCH (11:41)
[2018-01-05] MEDS: SODIUM CHLORIDE FLUSH SYRINGE 10 ML IV SCH (11:41)
[2018-01-05] MEDS: COREG PO SCH (11:42)
[2018-01-05] MEDS: CRESEMBA PO SCH (11:42)
--- NOTE | 2018-01-05 11:44 | Progress Note ---
Assessment and Plan Cultures: no current microbiology specimens A/P: 62 year old male with chronic wound ulcers, DM type 2, hypertension, hepatitis B and C, S/P Renal transplant in 11/2016 admitted here with bilateral heel ulcers that were bleedin. Fungal sinusitis - possibly invasive. Mental status stable. Currently taking Cresemba for fungal sinusitis that was initiated at [place]. This is a non- formulary azole here at [facility]. Medication ordered and shipped last night. Medication arrived this morning. 2. Renal Transplant - off tacrolimus and cellcept. Pt only on predisone 10 mg daily, per family he was taken off meds due to fungal sinus infection. Nephrology following. 3. 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 Arterial doppler here showed compromised blood flow on the right side. Seen by Dr. Cardenas from surgery who recommended amputation, we concur. Further antimicrobials unlikely to be of additional benefit. Remains afebrile. 4. 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 5. Chronic Hepatitis B and C: on Entecavir, also non-formulary. LFTs show stable mild transaminitis with elevated Alk phosphatase with normal bilirubin. Hep C status is unknown. 6. JERRICA on admission: resolved. Creatinine down to 1.2 today. Recs: - continue Cresemba 372 mg PO daily - antimicrobials unlikely to of additional benefit for the chronic right calcaneal osteomyelitis with bone exposure - resume PO Entecavir for Hep B when available [facility] M: [phone] O:[phone] Subjective Date of service: 01/05/18 Interval history: Patient seen and examined. Denied pain, fevers or SOB. Stated that he was going to [place] on Wednesday, after rehab. Objective - Exam Narrative Exam: Constitutional: Alert, cooperative Head, Ears, Nose: Normocephalic, atraumatic. External ears, nose normal Eyes: Conjunctivae/corneas clear. No icterus. No ptosis. Neck: Supple, no meningeal signs Oral: dentition fair, no thrush Cardiovascular: S1, S2 normal. Respiratory: Good air entry, clear to auscultation bilaterally GI: Soft, non-tender; bowel sounds normal. No peritoneal signs Musculoskeletal: No pedal edema, no cyanosis. Skin: bilateral heel ulcers, R>L, right side is about 10 in size with exposed bone, dressing + Hem/Lymphatic: No palpable cervical or supraclavicular nodes. No lymphangitis Psych: Mood ok. Affect normal Neurological: Awake, alert, oriented. No gross abnormality - Constitutional Vitals: Vital Signs Temp Pulse Resp BP Pulse Ox 98.8 F 66 18 119/54 90 01/05/18 04:46 01/05/18 05:59 01/05/18 04:46 01/05/18 05:59 01/05/18 04:46 Temperature -Last 24 Hours Temperature 98.8 F Temperature 98.3 F Temperature 98.0 F - Labs CBC & Chem 7: 01/05/18 04:01 01/05/18 04:01 Labs: Abnormal lab results 01/04/18 01/04/18 01/04/18 Range/Units 12:39 16:38 21:53 RBC (3.65-5.03) M/mm3 Hgb (11.8-15.2) gm/dl Hct (35.5-45.6) % MCV (84-94) fl RDW (13.2-15.2) % Lymph % (Auto) (13.4-35.0) % [place] % (Auto) (0.0-7.3) % [place] # (0.0-0.8) K/mm3 Seg Neutrophils % (40.0-70.0) % Sodium (137-145) mmol/L Potassium (3.6-5.0) mmol/L Carbon Dioxide (22-30) mmol/L BUN (9-20) mg/dL POC Glucose 215 H 279 H 206 H (70-105) 01/05/18 01/05/18 Range/Units 04:01 04:01 RBC 3.31 L (3.65-5.03) M/mm3 Hgb 10.6 L (11.8-15.2) gm/dl Hct 32.0 L (35.5-45.6) % MCV 97 H (84-94) fl RDW 15.7 H (13.2-15.2) % Lymph % (Auto) 13.1 L (13.4-35.0) % [place] % (Auto) 13.6 H (0.0-7.3) % [place] # 1.4 H (0.0-0.8) K/mm3 Seg Neutrophils % 71.7 H (40.0-70.0) % Sodium 134 L (137-145) mmol/L Potassium 5.1 H (3.6-5.0) mmol/L Carbon Dioxide 18 L (22-30) mmol/L BUN 61 H (9-20) mg/dL POC Glucose (70-105)
[2018-01-05 11:50] VITALS: BP 130/61
[2018-01-05] MEDS: DAKIN'S HALF STRENGTH TP SCH (11:50)
[2018-01-05] MEDS: SANTYL TP SCH (11:51)
--- NOTE | 2018-01-05 13:23 | Progress Note ---
Assessment and Plan Acute Kidney injury likely Prerenal/ATN: Renal Transplant: -Renal function reviewed, SCr level was 1.4 today, yesterday's SCr level was 1.2 , stable -Renal US of transplanted kidney-WNLs -Per recent d/c med list from [place], pt only on Predisone 10 mg daily, per family he was taken off [place]/Cellcept due to fungal sinus infection -CXR on 01/03/18 showed mild pulmonary vascular congestion, mild blunting of right costophrenic angle may represent trace pleural effusion -D/C 0.9% NS infusion -Urine eosinophils- pending -Renally dose all meds -Avoid nephrotoxic meds -Hardin Catheter: No -Continue to monitor renal function Non-Anion Gap Metabolic acidosis: -On Sodium Bicarbonate 650 mg orally BID Bilateral Foot wounds: -Wound care -ID onboard Fungal Sinus infection: -Can continue outpatient anti-fungal medication -ID onboard Hepatitis C infection: -Can continue Entacavir History Essential Hypertension: -Continue on current regimen Diabetes Mellitus type 2 on insulin: -On insulin -As per primary Subjective Date of service: 01/05/18 Principal diagnosis: ARF Interval history: Patient seen lying in bed. No acute events overnight. No family at bedside. Objective - Vital Signs Vital signs: Vital Signs - 12hr 01/05/18 01/05/18 01/05/18 04:46 05:59 11:42 Temperature 98.8 F Pulse Rate 66 66 Respiratory 18 Rate Blood Pressure 119/54 119/54 130/61 O2 Sat by Pulse 90 Oximetry - General Appearance General appearance: well-developed, appears stated age EENT: ATNC, PERRL, hearing intact, vision intact Neck: no JVD, supple Respiratory: Present: Decreased Breath Sounds Cardiology: regular, S1S2 Gastrointestinal: normoactive bowel sounds Integumentary: warm and dry, other Neurologic: alert and oriented x3 Musculoskeletal: other (trace edema) Psychiatric: mood/affect appropriate - Lab 01/05/18 04:01 01/05/18 04:01 Most recent lab results Calcium 9.0 mg/dL (8.4-10.2) 01/05/18 04:01 Phosphorus 2.30 mg/dL (2.5-4.5) L 01/03/18 14:20 Magnesium 1.90 mg/dL (1.7-2.3) 01/05/18 04:01 Urine Creatinine 28.3 mg/dL (0.1-20.0) H 01/04/18 02:46 Urine Sodium 83 mmol/L 01/04/18 02:46
--- NOTE | 2018-01-05 14:18 | Discharge Summary ---
Providers - Providers Date of Admission: 01/03/18 04:44 Date of discharge: 01/05/18 Attending physician: AGNES NOVOA 01/03/18 02:50 Consult to Physician [CONS] Urgent Comment: Consulting Provider: DAYTON TELLEZ Physician Instructions: Reason For Exam: renal insuf, hx of transplant, dehydration 01/03/18 07:01 Consult to Wound/ET Nurse [CONS] Routine Reason For Exam: wound eval 01/03/18 15:24 Consult to Physician [CONS] Routine Comment: Consulting Provider: ALBER CARDENAS Physician Instructions: PLEASE EVALUATE BOTH HEELS Reason For Exam: EVALUATE FOR DEBRIDEMENT 01/04/18 13:20 Consult to Physician [CONS] Routine Comment: Consulting Provider: ALEJANDRO PAEZ Physician Instructions: Reason For Exam: s/p Renal transplant/antifungals/tracie heel ulcers Primary care physician: [employer]OR Hospitalization Condition: Stable Hospital course: --Bilateral heel ulcers/infected/necrotic; Continue wound care, patient completed full course of antibiotic therapy, follow cultures, vascular and Wound care surgeons following, Dr. Cardenas recommended amputation. Patient and sister refused. Want to take second opinion --Fungal infection; continue antifungal, supportive care Patient's home medication Cresemba[Isavuconazonium sulfate is not available in our hospital] Patient and family demands the same brand antifungal medication. ID consultation for further evaluation and recommendations --Acute kidney injury; present on admission, probably vasomotor nephropathy Resolved, closely monitor renal function, avoid nephrotoxins --Status post renal transplant; continue current management Nephrology evaluated the patient --History of hepatitis C virus/hepatitis B virus; Continue current management, consider GI evaluation if needed --Transaminitis; probably secondary to hep B and C, closely monitor, GI evaluation if needed --Type 2 diabetes mellitus; Accu-Chek sliding scale coverage and ADA diet and insulin as needed --Moderate malnutrition; nutrition supplements and supportive care Dis[facility] Time spent for discharge: 32 min Core Measure Documentation - Palliative Care Palliative Care/ Comfort Measures: Not Applicable - Core Measures Any of the following diagnoses?: none Exam - Constitutional Vitals: Temp Pulse Resp BP Pulse Ox 98.8 F 66 18 130/61 90 01/05/18 04:46 01/05/18 05:59 01/05/18 04:46 01/05/18 11:42 01/05/18 04:46 General appearance: Present: no acute distress, well-nourished - EENT Eyes: Present: PERRL, EOM intact - Neck Neck: Present: supple, normal ROM - Respiratory Respiratory effort: normal Respiratory: bilateral: diminished, negative: rales, rhonchi, wheezing - Cardiovascular Rhythm: regular Heart Sounds: Present: S1 & S2 - Extremities Extremities: No edema, abnormal (bilateral heel wounds) - Abdominal General gastrointestinal: Present: soft, non-tender, non-distended, normal bowel sounds - Integumentary Integumentary: Present: clear, warm - Musculoskeletal Musculoskeletal: strength equal bilaterally - Psychiatric Psychiatric: appropriate mood/affect, cooperative - Neurologic Neurologic: CNII-XII intact, moves all extremities Plan Activity: advance as tolerated, fall precautions Diet: diabetic Wound: per wound nurse instructions Special Instructions: physical therapy, other Additional Instructions: Advised to follow private orthopedic/podiatry for further evaluation of bilateral heel infected wounds. Advised to see private vascular for peripheral vascular disease. Follow private ID at [facility] per schedule Follow up with: PRIMARY CARE, [Primary Care Provider] - 3-5 Days Prescriptions: Isavuconazonium Sulfate [Cresemba] 372 mg PO DAILY #4 capsule
== END 2018-01-05 17:10 | DRG 638 ==
LOC: ED 00:33 → 4A 04:44 → 3A 18:24
PROVIDERS: ADMIT Internal Medicine; ATTEND Internal Medicine
DX: E11.621 Type 2 diabetes mellitus with foot ulcer (principal); L97.409 Non-pressure chronic ulcer of unspecified heel and midfoot with unspecified severity; Z94.0 Kidney transplant status; E87.2 Acidosis; B49 Unspecified mycosis; E44.0 Moderate protein-calorie malnutrition; L97.429 Non-pressure chronic ulcer of left heel and midfoot with unspecified severity; L97.416 Non-pressure chronic ulcer of right heel and midfoot with bone involvement without evidence of necrosis; N17.0 Acute kidney failure with tubular necrosis; D64.9 Anemia, unspecified; B19.20 Unspecified viral hepatitis C without hepatic coma; J01.80 Other acute sinusitis; D89.9 Disorder involving the immune mechanism, unspecified; E11.22 Type 2 diabetes mellitus with diabetic chronic kidney disease; N18.9 Chronic kidney disease, unspecified; Z79.899 Other long term (current) drug therapy; Z79.4 Long term (current) use of insulin; Z87.891 Personal history of nicotine dependence; Z68.26 Body mass index [BMI] 26.0-26.9, adult
CPT/HCPCS: 36415; 71045; 76770; 80048; 80053; 81001; 82570; 82962; 83036; 83735; 83880; 84100; 84300; 84520; 85007; 85025; 85610; 85730; 93925; A6021; A6260; J1644; J1815; J7030; J7512; J7517

== ENCOUNTER 2018-04-24 00:07 | Inpatient (IN) | payer MEDICARE, MEDICAID ==
[2018-04-24] MEDS ORDERED: ATROPINE 0.1% (CARDIAC) ONE (00:19)
--- NOTE | 2018-04-24 00:27 | Emergency Department Report ---
ED Shortness of Breath HPI - General Chief Complaint: Dyspnea/Respdistress Stated Complaint: NAVIN Time Seen by Provider: 04/24/18 00:07 Source: patient, EMS Mode of arrival: Stretcher Limitations: Altered Mental Status - History of Present Illness Initial Comments: Patient is 63-year-old male that has emergency room complaints of shortness of breath 1 day. Patient states that he's feeling weak. Patient denies chest pain. Patient denies fever chills. Patient denies abdominal pain. Patient states he has not been feeling good all day. Patient has a history of diabetes, chronic kidney disease, hepatitis B, C, subacute endocarditis, recently samuel ceron was sent to the emergency room for shortness of breath. He is a very poor historian, difficult to get a history from him. Per the chart from the correction he was diagnosed with endocarditis recently, on IV vancomycin. PAST MEDICAL HISTORY: diabetes, chronic kidney disease, pressure ulcers on his heels, hepatitis B, C, subacute endocarditis MD Complaint: shortness of breath -: Sudden Severity: moderate Consistency: constant Improves With: nothing Worsens With: nothing Known History Of: diabetes Associated Symptoms: denies other symptoms - Related Data Home Medications Medication Instructions Recorded Confirmed Last Taken Aspirin [Aspirin BABY CHEW TAB] 81 mg PO QDAY 01/03/18 04/24/18 01/02/18 Cholecalciferol (Vitamin D3) 4,000 unit PO DAILY 01/03/18 04/24/18 1 Day Ago [Vitamin D3] ~01/02/18 Dextrose [Glucose Gel] 38 gm PO PRN PRN 01/03/18 04/24/18 Unknown Docusate Sodium [Colace CAP] 100 mg PO BID PRN 01/03/18 04/24/18 01/02/18 Entecavir 0.5 mg PO DAILY 01/03/18 04/24/18 01/02/18 Heparin Sodium,Porcine [Heparin 5,000 units SUB-Q Q8HR 01/03/18 04/24/18 01/02/18 Sodium] Hydralazine HCl 50 mg PO TID 01/03/18 04/24/18 01/02/18 Multivit-Min/Iron Fum/Folic AC 1 each PO DAILY 01/03/18 04/24/18 1 Day Ago [Ukpgj-Paozwld-Pngglqib Tablet] ~01/02/18 NIFEdipine [Nifedipine ER] 60 mg PO BID 01/03/18 04/24/18 1 Day Ago ~01/02/18 Pantoprazole [Protonix TAB] 40 mg PO QDAY 01/03/18 04/24/18 1 Day Ago ~01/02/18 Pregabalin [Lyrica] 75 mg PO Q8HR 01/03/18 04/24/18 1 Day Ago ~01/02/18 Sodium Bicarbonate 650 mg PO TID 01/03/18 04/24/18 1 Day Ago ~01/02/18 Sodium Chloride/Aloe Vera [[place] 22 ml NS Q6HR 01/03/18 04/24/18 01/02/18 Saline Nasal Gel [facility]] oxyCODONE /ACETAMINOPHEN [Percocet 1 tab PO Q6HR PRN 01/03/18 04/24/18 Unknown 5/325 mg] predniSONE [Deltasone] 10 mg PO QDAY 01/03/18 04/24/18 1 Day Ago ~01/02/18 Basaglar Kwikpen U-100 8 units SUB-Q HS 04/24/18 04/24/18 Unknown Bisacodyl 10 mg PO DAILY PRN 04/24/18 04/24/18 Unknown Fluticasone 50 mcg IN BID 04/24/18 04/24/18 Unknown Thiamine 100 mg PO DAILY 04/24/18 04/24/18 Unknown Vancomycin 1.5 Gram/500 ml-D5w 1.5 gram IV DAILY 04/24/18 04/24/18 Unknown Vit B6/Me-Thfolate/Me-B12/Ala 100 mg PO DAILY 04/24/18 04/24/18 Unknown Previous Rx's Medication Instructions Recorded Last Taken Type Furosemide [Lasix TAB] 40 mg PO DAILY #1 04/26/18 Unknown Rx Allergies Allergy/AdvReac Type Severity Reaction Status Date / Time No Known Allergies Allergy Unverified 11/27/16 09:39 ED Review of Systems ROS: Stated complaint: NAVIN Other details as noted in HPI Constitutional: malaise. denies: chills, fever Eyes: denies: eye pain, eye discharge, vision change ENT: denies: ear pain, throat pain Respiratory: shortness of breath. denies: cough, wheezing Cardiovascular: denies: chest pain, palpitations Endocrine: no symptoms reported Gastrointestinal: denies: abdominal pain, nausea, diarrhea Genitourinary: denies: urgency, dysuria Musculoskeletal: denies: back pain, joint swelling, arthralgia Skin: denies: rash, lesions Neurological: denies: headache, weakness, paresthesias Psychiatric: denies: anxiety, depression Hematological/Lymphatic: denies: easy bleeding, easy bruising ED Past Medical Hx - Past Medical History Previous Medical History?: Yes Hx Hypertension: Yes Hx Congestive Heart Failure: Yes Hx Diabetes: Yes Hx Renal Disease: Yes Additional medical history: Hepatitis B and C. neuromuscular dysfunction of bladder. osteomyelitis. generalized weakness - Surgical History Past Surgical History?: Yes Additional Surgical History: Kidney Transplant 10/2016. Vas Cath - Family History Family history: no significant - Social History Smoking Status: Never Smoker Substance Use Type: None - Medications Home Medications: Home Medications Medication Instructions Recorded Confirmed Last Taken Type Aspirin [Aspirin BABY CHEW TAB] 81 mg PO QDAY 01/03/18 04/24/18 01/02/18 History Cholecalciferol (Vitamin D3) 4,000 unit PO DAILY 01/03/18 04/24/18 1 Day Ago History [Vitamin D3] ~01/02/18 Dextrose [Glucose Gel] 38 gm PO PRN PRN 01/03/18 04/24/18 Unknown History Docusate Sodium [Colace CAP] 100 mg PO BID PRN 01/03/18 04/24/18 01/02/18 History Entecavir 0.5 mg PO DAILY 01/03/18 04/24/18 01/02/18 History Heparin Sodium,Porcine [Heparin 5,000 units SUB-Q Q8HR 01/03/18 04/24/18 01/02/18 History Sodium] Hydralazine HCl 50 mg PO TID 01/03/18 04/24/18 01/02/18 History Multivit-Min/Iron Fum/Folic AC 1 each PO DAILY 01/03/18 04/24/18 1 Day Ago History [Nsnuq-Fhojbtl-Yadqykhk Tablet] ~01/02/18 NIFEdipine [Nifedipine ER] 60 mg PO BID 01/03/18 04/24/18 1 Day Ago History ~01/02/18 Pantoprazole [Protonix TAB] 40 mg PO QDAY 01/03/18 04/24/18 1 Day Ago History ~01/02/18 Pregabalin [Lyrica] 75 mg PO Q8HR 01/03/18 04/24/18 1 Day Ago History ~01/02/18 Sodium Bicarbonate 650 mg PO TID 01/03/18 04/24/18 1 Day Ago History ~01/02/18 Sodium Chloride/Aloe Vera [[place] 22 ml NS Q6HR 01/03/18 04/24/18 01/02/18 History Saline Nasal Gel [facility]] oxyCODONE /ACETAMINOPHEN [Percocet 1 tab PO Q6HR PRN 01/03/18 04/24/18 Unknown History 5/325 mg] predniSONE [Deltasone] 10 mg PO QDAY 01/03/18 04/24/18 1 Day Ago History ~01/02/18 Basaglar Kwikpen U-100 8 units SUB-Q HS 04/24/18 04/24/18 Unknown History Bisacodyl 10 mg PO DAILY PRN 04/24/18 04/24/18 Unknown History Fluticasone 50 mcg IN BID 04/24/18 04/24/18 Unknown History Thiamine 100 mg PO DAILY 04/24/18 04/24/18 Unknown History Vancomycin 1.5 Gram/500 ml-D5w 1.5 gram IV DAILY 04/24/18 04/24/18 Unknown History Vit B6/Me-Thfolate/Me-B12/Ala 100 mg PO DAILY 04/24/18 04/24/18 Unknown History Furosemide [Lasix TAB] 40 mg PO DAILY #1 04/26/18 04/24/18 Unknown Rx ED Physical Exam - General Limitations: No Limitations General appearance: alert, in no apparent distress - Head Head exam: Present: atraumatic, normocephalic - Eye Eye exam: Present: normal appearance, PERRL Pupils: Present: normal accommodation - ENT ENT exam: Present: mucous membranes moist - Neck Neck exam: Present: normal inspection - Respiratory Respiratory exam: Present: normal lung sounds bilaterally. Absent: respiratory distress - Cardiovascular Cardiovascular Exam: Present: regular rate, normal rhythm, bradycardia. Absent: systolic murmur, diastolic murmur, rubs, gallop - GI/Abdominal GI/Abdominal exam: Present: soft, normal bowel sounds - Rectal Rectal exam: Present: deferred - Extremities Exam Extremities exam: Present: normal inspection - Back Exam Back exam: Present: normal inspection - Neurological Exam Neurological exam: Present: alert, oriented X3 - Psychiatric Psychiatric exam: Present: normal affect, normal mood - Skin Skin exam: Present: warm, dry, intact, normal color. Absent: rash ED Course Vital Signs 04/24/18 04/24/18 04/24/18 00:24 00:30 00:42 Pulse Rate 57 L 56 L Respiratory 15 20 Rate Blood Pressure 114/58 114/58 Blood Pressure [Left] O2 Sat by Pulse 94 95 92 Oximetry 04/24/18 04/24/18 04/24/18 01:00 01:30 02:00 Pulse Rate 30 L 62 63 Respiratory 21 22 27 H Rate Blood Pressure 112/51 113/50 113/54 Blood Pressure [Left] O2 Sat by Pulse 90 93 93 Oximetry 04/24/18 04/24/18 04/24/18 02:30 03:30 04:00 Pulse Rate 63 58 L 48 L Respiratory 25 H 22 12 Rate Blood Pressure 111/70 112/53 106/49 Blood Pressure [Left] O2 Sat by Pulse 93 84 97 Oximetry 04/24/18 04:30 Pulse Rate 45 L Respiratory 17 Rate Blood Pressure Blood Pressure 134/58 [Left] O2 Sat by Pulse 96 Oximetry - Reevaluation(s) Reevaluation #1: Patient brought in by EMS. Report received from EMS. Initial evaluation done. Patient found to have symptomatic bradycardia. Patient given atropine and No improvement. patient placed on external pacer and bradycardia improved. Pat ient states shortness of breath improved. Initial rhythm appears to be junctional. Patient placed on oxygen. 04/24/18 00:07 Patient states he is feeling better. Patient states shortness breath is resolved. 04/24/18 01:31 Patient is resting comfortably. 04/24/18 01:57 - Consultations Consultation #1: Etiology consulted. [facility] returned call. Discussed case with DR. RDZ. . Graphic Production Artist recommends to continue external pacer and admission to the hospitalist service 04/24/18 01:22 - Procedure Description Procedures done: External pacer procedure note: Pads placed on patient by nursing staff. Again increased until captured. Rates set at 60. Patient At 20. Patient Is Improving. No complications. ED Medical Decision Making - Lab Data Result diagrams: 04/24/18 05:03 04/26/18 05:52 - EKG Data -: EKG Interpreted by Me EKG shows normal: intervals, QRS complexes, ST-T waves Rate: bradycardia - EKG Data Interpretation: other (junctional rhythm) - Radiology Data Radiology results: report reviewed FINAL REPORT EXAM: XRAY CHEST SINGLE VIEW HISTORY: Dyspnea TECHNIQUE: AP portable view of the chest. PRIORS: 01/03/2018 FINDINGS: There is a left-sided central venous catheter with the tip in the right atrium.The cardiomediastinal silhouette appears normal. The lungs are hypoaerated but clear. The bones and soft tissues are unremarkable. IMPRESSION: Left-sided central venous catheter with tip in the right atrium. No evidence of acute cardiopulmonary disease. - Medical Decision Making Patient is a 63-year-old male that presents to the emergency room with complaints of shortness of breath and malaise and fatigue. Patient found to have symptomatic bradycardia. Patient was given atropine with no results. Patient was placed on external pacer and improve heart rate. Patient's symptoms improved. Patient will be admitted to the hospitalist service for further evaluation treatment. Graphic Production Artist consulted. No further recommendations received from cardiology. Bradycardia may be secondary to hyperkalemia or beta al - Differential Diagnosis symptomatic bradycardia. Shortness of breath. Fatigue Critical Care Time: Yes Critical care attestation.: If time is entered above; I have spent that time in minutes in the direct care of this critically ill patient, excluding procedure time. Critical Care Time: 45 minutes ED Disposition Clinical Impression: SOB (shortness of breath), Malaise and fatigue, Symptomatic bradycardia, Elevated troponin, Hyponatremia, Hyperkalemia CKD (chronic kidney disease) Qualifiers: Chronic kidney disease stage: unspecified stage Qualified Code(s): N18.9 - Chronic kidney disease, unspecified CRI (chronic renal insufficiency) Qualifiers: Chronic kidney disease stage: unspecified stage Qualified Code(s): N18.9 - Chronic kidney disease, unspecified Disposition: 09 OP ADMIT IP TO THIS HOSP Is pt being admited?: Yes Does the pt Need Aspirin: No Condition: Stable Time of Disposition: 02:00
[2018-04-24] MEDS ORDERED: ATROPINE 0.1% (CARDIAC) IV ONE (01:13)
--- NOTE | 2018-04-24 01:50 | XRay Report ---
FINAL REPORT EXAM: XRAY CHEST SINGLE VIEW HISTORY: Dyspnea TECHNIQUE: AP portable view of the chest. PRIORS: 01/03/2018 FINDINGS: There is a left-sided central venous catheter with the tip in the right atrium.The cardiomediastinal silhouette appears normal. The lungs are hypoaerated but clear. The bones and soft tissues are unrema rkable. IMPRESSION: Left-sided central venous catheter with tip in the right atrium. No evidence of acute cardiopulmonary disease.
[2018-04-24] MEDS ORDERED: SODIUM CHLORIDE FLUSH SYRINGE 10 ML IV PRN (02:33)
[2018-04-24] MEDS ORDERED: D50W (25GM) Syringe IV PRN ×2 (02:33→03:17)
[2018-04-24] MEDS ORDERED: TYLENOL PO PRN (02:33)
[2018-04-24] MEDS ORDERED: ZOFRAN IV PRN (02:33)
[2018-04-24 02:34] LABS: Chol/HDL Ratio 6.03 %
--- NOTE | 2018-04-24 02:37 | History and Physical Report ---
History of Present Illness Date of examination: 04/24/18 History of present illness: 63-year-old man with a history of diabetes, chronic kidney disease, hepatitis B, C, subacute endocarditis, recently diagnosed was sent to the emergency room for shortness of breath. He is a very poor historian, difficult to get a history from him. In the emergency room he was Bradycardic with heart rate of 20 and he was found to be in acute renal failure. She was given IV atropine and then externally paced. Per the chart from the skilled nursing he was diagnosed with endocarditis recently, on IV vancomycin. Review of system difficult to obtain. History is per the chart PAST MEDICAL HISTORY: diabetes, chronic kidney disease, pressure ulcers on his heels, hepatitis B, C, subacute endocarditis PAST SURGICAL HISTORY: Kidney transplant SOCIAL HISTORY: Denies alcohol, drugs, tobacco FAMILY HISTORY: Hypertension Medications and Allergies Allergies Allergy/AdvReac Type Severity Reaction Status Date / Time No Known Allergies Allergy Unverified 11/27/16 09:39 Home Medications Medication Instructions Recorded Confirmed Last Taken Type Aspirin [Aspirin BABY CHEW TAB] 81 mg PO QDAY 01/03/18 04/24/18 01/02/18 History Carvedilol [Coreg] 6.25 mg PO BID 01/03/18 04/24/18 01/02/18 History Cholecalciferol (Vitamin D3) 4,000 unit PO DAILY 01/03/18 04/24/18 1 Day Ago History [Vitamin D3] ~01/02/18 Dextrose [Glucose Gel] 38 gm PO PRN PRN 01/03/18 04/24/18 Unknown History Docusate Sodium [Colace CAP] 100 mg PO BID PRN 01/03/18 04/24/18 01/02/18 History Entecavir 0.5 mg PO DAILY 01/03/18 04/24/18 01/02/18 History Heparin Sodium,Porcine [Heparin 5,000 units SUB-Q Q8HR 01/03/18 04/24/18 01/02/18 History Sodium] Hydralazine HCl 50 mg PO TID 01/03/18 04/24/18 01/02/18 History Multivit-Min/Iron Fum/Folic AC 1 each PO DAILY 01/03/18 04/24/18 1 Day Ago History [Mmmeo-Hsmkqtw-Ppzyhkoq Tablet] ~01/02/18 NIFEdipine [Nifedipine ER] 60 mg PO BID 01/03/18 04/24/18 1 Day Ago History ~01/02/18 Pantoprazole [Protonix TAB] 40 mg PO QDAY 01/03/18 04/24/18 1 Day Ago History ~01/02/18 Pregabalin [Lyrica] 75 mg PO Q8HR 01/03/18 04/24/18 1 Day Ago History ~01/02/18 Sodium Bicarbonate 650 mg PO TID 01/03/18 04/24/18 1 Day Ago History ~01/02/18 Sodium Chloride/Aloe Vera [[place] 22 ml NS Q6HR 01/03/18 04/24/18 01/02/18 History Saline Nasal Gel [facility]] oxyCODONE /ACETAMINOPHEN [Percocet 1 tab PO Q6HR PRN 01/03/18 04/24/18 Unknown History 5/325 mg] predniSONE [Deltasone] 10 mg PO QDAY 01/03/18 04/24/18 1 Day Ago History ~01/02/18 Basaglar Kwikpen U-100 8 units SUB-Q HS 04/24/18 04/24/18 Unknown History Bisacodyl 10 mg PO DAILY PRN 04/24/18 04/24/18 Unknown History Fluticasone 50 mcg IN BID 04/24/18 04/24/18 Unknown History Furosemide [Lasix TAB] 40 mg PO BID 04/24/18 04/24/18 Unknown History Thiamine 100 mg PO DAILY 04/24/18 04/24/18 Unknown History Vancomycin 1.5 Gram/500 ml-D5w 1.5 gram IV DAILY 04/24/18 04/24/18 Unknown History Vit B6/Me-Thfolate/Me-B12/Ala 100 mg PO DAILY 04/24/18 04/24/18 Unknown History Exam - Physical Exam Narrative exam: General Apperance: The patient lying in bed, breathing comfortable HEENT: Normocephalic, atraumatic. Pupils equally round and reactive to light, EOMI, no sclericterus or JVD or thyromegaly or nodule. , no carotid bruit, mucous membranes moist, no exudate or erythema Heart: S1-S2, regular is rhythm Lungs: Clear to auscultation bilaterally, breathing comfortable Abdomen: Positive bowel sounds, soft, nontender, nondistended, no organomegaly Extremities: No edema cyanosis clubbing Skin: +pressure ulcers, rash, nodule, warm and dry Neuro: cranial nerves 2-12 intact, speech is fluent, motor/difficult to assess - Constitutional Vitals: Temp Pulse Resp BP Pulse Ox 57 L 15 114/58 94 04/24/18 00:24 04/24/18 00:24 04/24/18 00:24 04/24/18 00:24 Results - Labs CBC & Chem 7: 04/24/18 01:24 04/24/18 01:24 Labs: Abnormal lab results 04/24/18 Range/Units 01:24 Total Creatine Kinase 17 L (55-170) units/L CK-MB (CK-2) Rel Index 17.6 H (0-4) Troponin T 0.086 H (0.00-0.029) ng/mL Triglycerides 233 H (2-149) mg/dL HDL Cholesterol 30 L (40-59) mg/dL - Imaging and Cardiology EKG: report reviewed Chest x-ray: report reviewed Assessment and Plan Assessment Symptomatic bradycardia secondary to hyperkalemia, beta al Acute renal failure Hyperkalemia Endocarditis Diabetes Pressure ulcers Hepatitis B, C Plan Admit to medicine Continue external pacing Start IV fluid, hold nephrotoxic agents, beta al Give Kayexalate, bicarbonate for hyperkalemia, checkUS kidneys, BMP later Check cardiac enzymes, echo, cardiology was consulted to see the patient Continue vancomycin, pharmacy to renally dose Consult renal,case discussed with him, check fingersticks initiated insulin sliding-scale DVT prophylaxis Addendum Patient's heart rate dropped back to 40s, atropine given cardiology notified
[2018-04-24 03:11] LABS: Albumin 3.4 g/dL (3.9-5); Calcium 8.3 mg/dL (8.4-10.2)
[2018-04-24] MEDS ORDERED: CALCIUM CHLORIDE IVP ONE ×2 (03:17→05:27)
[2018-04-24] MEDS ORDERED: HumuLIN R IV ONE ×2 (03:17→07:44)
[2018-04-24 03:21] LABS: Hematocrit 32.7 % (35.5-45.6); Hemoglobin 10.5 gm/dl (11.8-15.2); Mean Corpuscular HGB Conc 32 % (32-34); Mean Corpuscular Volume 97 fl (84-94); Platelet Count 220 K/mm3 (140-440); Red Blood Count 3.37 M/mm3 (3.65-5.03); Red Cell Distribution Width 19.2 % (13.2-15.2)
[2018-04-24] MEDS ORDERED: ZOFRAN ONE (03:43)
[2018-04-24 03:49] LABS: Creatine Kinase MB 2.9 ng/mL (0.0-4.0)
[2018-04-24] MEDS ORDERED: KIONEX PO ONE ×2 (03:49→07:45)
[2018-04-24] MEDS ORDERED: NACL 0.9% 1000 ML 1,000 ML ONE (03:57)
[2018-04-24] MEDS ORDERED: NACL 0.9% 1000 ML 1,000 ML IV SCH (04:00)
[2018-04-24] MEDS ORDERED: COLACE PO PRN (04:01)
[2018-04-24] MEDS ORDERED: VANCOMYCIN 1,500 MG in NACL 0.9% 500 ML 500 ML IV ONE (04:30)
[2018-04-24] MEDS ORDERED: VANCOMYCIN PHARMACY TO DOSE IV SCH (05:00)
[2018-04-24] MEDS ORDERED: ATROPINE IV ONE ×2 (05:01→06:00)
[2018-04-24] MEDS ORDERED: PROVENTIL IH ONE (05:25)
[2018-04-24 05:51] LABS: Hematocrit 32.7 % (35.5-45.6); Hemoglobin 10.5 gm/dl (11.8-15.2); Mean Corpuscular HGB Conc 32 % (32-34); Mean Corpuscular Volume 97 fl (84-94); Platelet Count 229 K/mm3 (140-440); Red Blood Count 3.36 M/mm3 (3.65-5.03); Red Cell Distribution Width 19.4 % (13.2-15.2)
[2018-04-24] MEDS: LYRICA PO SCH ×3 (06:00→22:00)
[2018-04-24 06:15] LABS: Albumin 3.4 g/dL (3.9-5); Calcium 9.3 mg/dL (8.4-10.2)
[2018-04-24 06:31] LABS: Band Neutrophils # (Manual) 0.5 K/mm3; Basophils % (Manual) 0 % (0.0-1.8); Eosinophils % (Manual) 0 % (0.0-4.3); Myelocytes # (Manual) 0.2 K/mm3; Total Cells Counted 100
[2018-04-24 06:32] LABS: Anisocytosis 1+; Macrocytosis Few; Platelet Estimate Consistent w Auto
[2018-04-24 07:07] LABS: Anisocytosis 1+; Band Neutrophils # (Manual) 0.4 K/mm3; Basophils % (Manual) 0 % (0.0-1.8); Eosinophils % (Manual) 0 % (0.0-4.3); Myelocytes # (Manual) 0.2 K/mm3; Platelet Estimate Consistent w Auto; Total Cells Counted 100
[2018-04-24] MEDS: HumaLOG SUB-Q SCH ×4 (08:22→23:40)
[2018-04-24 09:39] LABS: Bilirubin,Urine NEG (Negative); Blood,Urine NEG (Negative); Color,Urine Yellow (Yellow); Hyaline Casts,Urine 1 /LPF; Mucus,Urine FEW /HPF; Urobilinogen,Urine < 2.0 mg/dL (<2.0)
[2018-04-24] MEDS ORDERED: LOVENOX SUB-Q SCH (10:00)
[2018-04-24] MEDS ORDERED: THFOLATE PO SCH (10:00)
[2018-04-24] MEDS ORDERED: DEXTROSE IV SCH (10:00)
[2018-04-24] MEDS ORDERED: ALA PO SCH (10:00)
[2018-04-24] MEDS ORDERED: VIT B6 PO SCH (10:00)
[2018-04-24] MEDS ORDERED: VANCOMYCIN IV SCH (10:00)
[2018-04-24] MEDS ORDERED: B12 PO SCH (10:00)
[2018-04-24] MEDS ORDERED: [UNRECOGNIZED DRUG - OTHER] PO SCH (10:00)
[2018-04-24] MEDS: PROTONIX PO SCH (10:12)
[2018-04-24] MEDS: DELTASONE PO SCH (10:12)
[2018-04-24] MEDS: VITAMIN B-1 PO SCH (10:12)
[2018-04-24] MEDS: SODIUM BICARBONATE PO SCH ×3 (10:12→20:48)
[2018-04-24] MEDS: BABY ASPIRIN PO SCH (10:12)
[2018-04-24] MEDS: VITAMIN D3 PO SCH (10:12)
[2018-04-24] MEDS: SODIUM CHLORIDE FLUSH SYRINGE 10 ML IV SCH ×2 (10:13→22:05)
--- NOTE | 2018-04-24 11:04 | Consultation ---
History of Present Illness - Reason for Consult Consult date: 04/24/18 acute renal failure, chronic renal failure, hyponatremia, hyperkalemia - History of Present Illness The patient is a 63 YO Male with history significant for HTN, Type 2 DM, prior ESRD, S/P donor kidney transplant on 11/02/16 at [facility], CKD stage 3, suspected Endocarditis on vancomycin, bilateral heel osteomyelitis, Hepatitis C (genotype 3), Hep B, Invasive fungal infection with pulmonary nodules, sinusitis and skul base involvement on Isavuconazonium and [place] resident who presented to the emergency room for evaluation of shortness of breath. He is a very poor historian, unable to get a history from him. In the emergency room he was Bradycardic with heart rate in 20s. She was given IV atropine and then exter delfino paced. Labs were significant for creatinine of 1.9 and K 7. He received medications for hyperkalemia and his K level has improved to 5.3. Nephrology was consulted for further evaluation and treatment. He is only on low dose Prednisone to prevent transplant rejection. Tacrolimus and MMF were stopped due to infections. He had a similar presentation at [facility] on 04/12/2018. Past History Past Medical History: diabetes, hypertension, renal failure Medications and Allergies Allergies Allergy/AdvReac Type Severity Reaction Status Date / Time No Known Allergies Allergy Unverified 11/27/16 09:39 Home Medications Medication Instructions Recorded Confirmed Last Taken Type Aspirin [Aspirin BABY CHEW TAB] 81 mg PO QDAY 01/03/18 04/24/18 01/02/18 History Carvedilol [Coreg] 6.25 mg PO BID 01/03/18 04/24/18 01/02/18 History Cholecalciferol (Vitamin D3) 4,000 unit PO DAILY 01/03/18 04/24/18 1 Day Ago History [Vitamin D3] ~01/02/18 Dextrose [Glucose Gel] 38 gm PO PRN PRN 01/03/18 04/24/18 Unknown History Docusate Sodium [Colace CAP] 100 mg PO BID PRN 01/03/18 04/24/18 01/02/18 History Entecavir 0.5 mg PO DAILY 01/03/18 04/24/18 01/02/18 History Heparin Sodium,Porcine [Heparin 5,000 units SUB-Q Q8HR 01/03/18 04/24/18 01/02/18 History Sodium] Hydralazine HCl 50 mg PO TID 01/03/18 04/24/18 01/02/18 History Multivit-Min/Iron Fum/Folic AC 1 each PO DAILY 01/03/18 04/24/18 1 Day Ago History [Khnoj-Msiygah-Ruplqcjk Tablet] ~01/02/18 NIFEdipine [Nifedipine ER] 60 mg PO BID 01/03/18 04/24/18 1 Day Ago History ~01/02/18 Pantoprazole [Protonix TAB] 40 mg PO QDAY 01/03/18 04/24/18 1 Day Ago History ~01/02/18 Pregabalin [Lyrica] 75 mg PO Q8HR 01/03/18 04/24/18 1 Day Ago History ~01/02/18 Sodium Bicarbonate 650 mg PO TID 01/03/18 04/24/18 1 Day Ago History ~01/02/18 Sodium Chloride/Aloe Vera [[place] 22 ml NS Q6HR 01/03/18 04/24/18 01/02/18 History Saline Nasal Gel [facility]] oxyCODONE /ACETAMINOPHEN [Percocet 1 tab PO Q6HR PRN 01/03/18 04/24/18 Unknown History 5/325 mg] predniSONE [Deltasone] 10 mg PO QDAY 01/03/18 04/24/18 1 Day Ago History ~01/02/18 Basaglar Kwikpen U-100 8 units SUB-Q HS 04/24/18 04/24/18 Unknown History Bisacodyl 10 mg PO DAILY PRN 04/24/18 04/24/18 Unknown History Fluticasone 50 mcg IN BID 04/24/18 04/24/18 Unknown History Furosemide [Lasix TAB] 40 mg PO BID 04/24/18 04/24/18 Unknown History Thiamine 100 mg PO DAILY 04/24/18 04/24/18 Unknown History Vancomycin 1.5 Gram/500 ml-D5w 1.5 gram IV DAILY 04/24/18 04/24/18 Unknown History Vit B6/Me-Thfolate/Me-B12/Ala 100 mg PO DAILY 04/24/18 04/24/18 Unknown History Active Meds: Active Medications Acetaminophen (Tylenol) 650 mg PO Q4H PRN PRN Reason: Pain MILD(1-3)/Fever >100.5/PORTILLO Aspirin (Baby Aspirin) 81 mg PO QDAY [facility] Last Admin: 04/24/18 10:12 Dose: 81 mg Documented by: Cholecalciferol (Vitamin D3) 4,000 unit PO DAILY [facility] Last Admin: 04/24/18 10:12 Dose: 4,000 unit Documented by: Dextrose (D50w (25gm) Syringe) 50 ml IV PRN PRN PRN Reason: Hypoglycemia Last Admin: 04/24/18 03:47 Dose: 50 ml Documented by: Docusate Sodium (Colace) 100 mg PO BID PRN PRN Reason: Constipation Enoxaparin Sodium (Lovenox) 30 mg SUB-Q QDAY [facility] Last Admin: 04/24/18 10:12 Dose: 30 mg Documented by: Sodium Chloride (Nacl 0.9% 1000 Ml) 1,000 mls @ 75 mls/hr IV DIRECT [facility] Insulin Human Lispro (Humalog) 0 unit SUB-Q ACHS [facility]; Protocol Last Admin: 04/24/18 08:22 Dose: Not Given Documented by: Miscellaneous Medication (Entecavir [Entecavir]) 0.5 mg PO DAILY [facility] Miscellaneous Medication (Vit B6/Me-Thfolate/Me-B12/Ala) 100 mg PO DAILY [facility] Ondansetron HCl (Zofran) 4 mg IV Q8H PRN PRN Reason: Nausea And Vomiting Pantoprazole Sodium (Protonix) 40 mg PO QDAY [facility] Last Admin: 04/24/18 10:12 Dose: 40 mg Documented by: Prednisone (Deltasone) 10 mg PO QDAY [facility] Last Admin: 04/24/18 10:12 Dose: 10 mg Documented by: Pregabalin (Lyrica) 75 mg PO Q8HR [facility] Last Admin: 04/24/18 06:00 Dose: 75 mg Documented by: Sodium Bicarbonate (Sodium Bicarbonate) 650 mg PO TID [facility] Last Admin: 04/24/18 10:12 Dose: 650 mg Documented by: Sodium Chloride (Sodium Chloride Flush Syringe 10 Ml) 10 ml IV BID [facility] Last Admin: 04/24/18 10:13 Dose: 10 ml Documented by: Sodium Chloride (Sodium Chloride Flush Syringe 10 Ml) 10 ml IV PRN PRN PRN Reason: LINE FLUSH Thiamine HCl (Vitamin B-1) 100 mg PO DAILY [facility] Last Admin: 04/24/18 10:12 Dose: 100 mg Documented by: Review of Systems ROS unobtainable: due to mental status Exam - Vital Signs Vital signs: Vital Signs Pulse Resp BP Pulse Ox 57 L 15 114/58 94 04/24/18 00:24 04/24/18 00:24 04/24/18 00:24 04/24/18 00:24 - General Appearance General appearance: well-developed, well-nourished, appears stated age, other (not in distress) EENT: ATNC, PERRL Neck: Present: neck supple, trachea midline Respiratory: Clear to Ascultation, Diaphramatic Movement Heart: regular, S1S2, no murmurs Gastrointestinal: Present: normoactive bowel sounds. Absent: tenderness, disten ded Integumentary: other (dressing of both feet) Neurologic: confused, disoriented, other (able to move extremities) Musculoskeletal: Present: other (right first toe amputated) Results - Lab Results 04/24/18 05:03 04/24/18 13:11 Most recent lab results Calcium 9.3 mg/dL (8.4-10.2) 04/24/18 05:03 - Image Kidney/bladder ultrasound: report reviewed Assessment and Plan 1. Acute kidney injury: Suspect vasomotor / hemodynamic JERRICA in the setting of volume depletion +/- sepsis. Renal function is improving. Continue IV fluids. Renal US was negative for obstruction. Monitor renal function. 2. FEN: Hyperkalemia, improving with treatment. Continue IV fluids. Monitor lytes. 3. Kidney transplantation status: DD transplant on 11/02/16 at [place]. Continue Prednisone. 4. 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 5. Bilateral heel osteomyelitis. 6. Invasive fungal infection with pulmonary nodules, sinusitis and skull base involvement: Continue Isavuconazonium, spoke to pharmacist. Pt's own medication. 7. Hepatitis C (genotype 3). 8. Hep B: On Entecavir.
[2018-04-24 12:07] LABS: Calcium 9.8 mg/dL (8.4-10.2)
--- NOTE | 2018-04-24 12:08 | Ultrasound Report ---
FINAL REPORT EXAM: US RENAL BILAT HISTORY: SOB TECHNIQUE: Renal ultrasound: PRIORS: None currently available. FINDINGS: RIGHT KIDNEY: 10.5 x 5.6 x 5.7 cm. Cortex measures 1.3 cm. No hydronephrosis. No stone. No lesion. Ec hogenic. LEFT KIDNEY: 9.6 x 5.4 x 4.4 cm. Cortex measures 1.5 cm. Upper cortical cyst measures 1.7 cm. No hydr onephrosis or stone. Echogenic. RIGHT LOWER QUADRANT TRANSPLANT KIDNEY: 11.5 x 6.7 x 5.0 cm. Cortex measures 2.1 cm. No hydronephrosi s. No stone. Normal echogenicity. No perinephric fluid collection. BLADDER: Limited images are unremarkable. No distinct lesions. IMPRESSION: Echogenic bilateral kidneys may be related to medical renal disease. Simple left renal cyst. Right lower quadrant renal transplant is grossly unremarkable.
[2018-04-24 12:09] LABS: Creatine Kinase MB 3.7 ng/mL (0.0-4.0)
--- NOTE | 2018-04-24 12:47 | Progress Note ---
History Interval history: Patient is a 63-year-old with a history of chronic kidney disease hepatitis B hepatitis C currently being treated for endocarditis presents with shortness of breath sinus bradycardia into the 20s. Patient was brought in placed on atropine and paced. At that time seemed to be doing fairly well. Heart rate increased to the 70s after one setback of bradycardia in the 40s requiring an additional atropine. Patient also was found to have acute failure with a potassium of 7 and a BUN/creatinine of 73 and 1.9. It was thought that hyperkalemia most likely etiology of bradycardia. Initial repeat chemistries showed potassium of 6 after only wanting Kayexalate. An additional one has been ordered and in fact he is receiving it during this examination. Cardiology has been consulted for bradycardia as well as renal for acute on chronic kidney disease. Patient also has a past history of diabetes which appears to be fairly well controlled we'll resume current. Hospitalist Physical - Constitutional Vitals: Temp Pulse Resp BP Pulse Ox 97.7 F 52 L 19 134/61 98 04/24/18 08:00 04/24/18 11:10 04/24/18 08:20 04/24/18 11:10 04/24/18 11:10 General appearance: Present: no acute distress - EENT Eyes: Present: PERRL, EOM intact, scleral icterus ENT: hearing intact, poor dentition, no oropharyngeal erythema - Neck Neck: Present: supple, normal ROM - Respiratory Respiratory effort: normal Respiratory: bilateral: CTA - Cardiovascular Heart rate: 56 - Extremities Extremities: no ischemia, pulses intact, pulses symmetrical Extremity abnormal: edema, other (severe onychomycosis and decubitus ulcers heals bilaterally and sacrum local wound care.) Peripheral Pulses: abnormal - Abdominal General gastrointestinal: soft, non-tender, non-distended, normal bowel sounds - Integumentary Integumentary: Present: clear, warm, dry - Psychiatric Psychiatric: appropriate mood/affect, intact judgment & insight - Neurologic Neurologic: CNII-XII intact, focal deficits Results - Labs CBC & Chem 7: 04/24/18 05:03 04/24/18 11:15 Labs: Laboratory Last Values WBC 9.1 K/mm3 (4.5-11.0) 04/24/18 05:03 RBC 3.36 M/mm3 (3.65-5.03) L 04/24/18 05:03 Hgb 10.5 gm/dl (11.8-15.2) L 04/24/18 05:03 Hct 32.7 % (35.5-45.6) L 04/24/18 05:03 MCV 97 fl (84-94) H 04/24/18 05:03 MCH 31 pg (28-32) 04/24/18 05:03 MCHC 32 % (32-34) 04/24/18 05:03 RDW 19.4 % (13.2-15.2) H 04/24/18 05:03 Plt Count 229 K/mm3 (140-440) 04/24/18 05:03 [place] % (Auto) Television Installer Helper 04/24/18 05:03 Add Manual Diff Complete 04/24/18 05:03 Total Counted 100 04/24/18 05:03 Seg Neuts % (Manual) 71.0 % (40.0-70.0) H 04/24/18 05:03 Band Neutrophils % 4.0 % 04/24/18 05:03 Lymphocytes % (Manual) 7.0 % (13.4-35.0) L 04/24/18 05:03 Reactive Lymphs % (Man) 0 % 04/24/18 05:03 Monocytes % (Manual) 15.0 % (0.0-7.3) H 04/24/18 05:03 Eosinophils % (Manual) 0 % (0.0-4.3) 04/24/18 05:03 Basophils % (Manual) 0 % (0.0-1.8) 04/24/18 05:03 Metamyelocytes % 1.0 % 04/24/18 05:03 Myelocytes % 2.0 % 04/24/18 05:03 Promyelocytes % 0 % 04/24/18 05:03 Blast Cells % 0 % 04/24/18 05:03 Nucleated RBC % Not Reportable 04/24/18 05:03 Seg Neutrophils # Man 6.5 K/mm3 (1.8-7.7) 04/24/18 05:03 Band Neutrophils # 0.4 K/mm3 04/24/18 05:03 Lymphocytes # (Manual) 0.6 K/mm3 (1.2-5.4) L 04/24/18 05:03 Abs React Lymphs (Man) 0.0 K/mm3 04/24/18 05:03 Monocytes # (Manual) 1.4 K/mm3 (0.0-0.8) H 04/24/18 05:03 Eosinophils # (Manual) 0.0 K/mm3 (0.0-0.4) 04/24/18 05:03 Basophils # (Manual) 0.0 K/mm3 (0.0-0.1) 04/24/18 05:03 Metamyelocytes # 0.1 K/mm3 04/24/18 05:03 Myelocytes # 0.2 K/mm3 04/24/18 05:03 Promyelocytes # 0.0 K/mm3 04/24/18 05:03 Blast Cells # 0.0 K/mm3 04/24/18 05:03 WBC Morphology Not Reportable 04/24/18 05:03 Hypersegmented Neuts Not Reportable 04/24/18 05:03 Hyposegmented Neuts Not Reportable 04/24/18 05:03 Hypogranular Neuts Not Reportable 04/24/18 05:03 Smudge Cells Not Reportable 04/24/18 05:03 Toxic Granulation Not Reportable 04/24/18 05:03 Toxic Vacuolation Not Reportable 04/24/18 05:03 Dohle Bodies Not Reportable 04/24/18 05:03 Pelger-Huet Anomaly Not Reportable 04/24/18 05:03 Sherly Rods Not Reportable 04/24/18 05:03 Platelet Estimate Consistent w auto 04/24/18 05:03 Clumped Platelets Not Reportable 04/24/18 05:03 Plt Clumps, EDTA Not Reportable 04/24/18 05:03 Large Platelets Not Reportable 04/24/18 05:03 Giant Platelets Not Reportable 04/24/18 05:03 Platelet Satelliting Not Reportable 04/24/18 05:03 Plt Morphology Comment Not Reportable 04/24/18 05:03 RBC Morphology Not Reportable 04/24/18 05:03 Dimorphic RBCs Not Reportable 04/24/18 05:03 Polychromasia Not Reportable 04/24/18 05:03 Hypochromasia Not Reportable 04/24/18 05:03 Poikilocytosis Not Reportable 04/24/18 05:03 Anisocytosis 1+ 04/24/18 05:03 Microcytosis Few 04/24/18 05:03 Macrocytosis Not Reportable 04/24/18 05:03 Spherocytes Not Reportable 04/24/18 05:03 Pappenheimer Bodies Not Reportable 04/24/18 05:03 Sickle Cells Not Reportable 04/24/18 05:03 Target Cells Not Reportable 04/24/18 05:03 Tear Drop Cells Not Reportable 04/24/18 05:03 Ovalocytes Not Reportable 04/24/18 05:03 Helmet Cells Not Reportable 04/24/18 05:03 [place] Bodies Not Reportable 04/24/18 05:03 [place] Rings Not Reportable 04/24/18 05:03 Loan Cells Not Reportable 04/24/18 05:03 Bite Cells Not Reportable 04/24/18 05:03 Crenated Cell Not Reportable 04/24/18 05:03 Elliptocytes Not Reportable 04/24/18 05:03 Acanthocytes (Spur) Not Reportable 04/24/18 05:03 Rouleaux Not Reportable 04/24/18 05:03 Hemoglobin C Crystals Not Reportable 04/24/18 05:03 Schistocytes Not Reportable 04/24/18 05:03 Malaria parasites Not Reportable 04/24/18 05:03 Owen Bodies Not Reportable 04/24/18 05:03 Hem Pathologist Commnt No 04/24/18 05:03 Sodium 133 mmol/L (137-145) L 04/24/18 11:15 Potassium 5.3 mmol/L (3.6-5.0) H 04/24/18 11:15 Chloride 95.5 mmol/L (98-107) L 04/24/18 11:15 Carbon Dioxide 24 mmol/L (22-30) 04/24/18 11:15 Anion Gap 19 mmol/L 04/24/18 11:15 BUN 69 mg/dL (9-20) H 04/24/18 11:15 Creatinine 1.6 mg/dL (0.8-1.5) H 04/24/18 11:15 Estimated GFR 44 ml/min 04/24/18 11:15 BUN/Creatinine Ratio 43 % 04/24/18 11:15 Glucose 170 mg/dL (75-100) H 04/24/18 11:15 POC Glucose 181 (70-105) H 04/24/18 11:29 Calcium 9.8 mg/dL (8.4-10.2) 04/24/18 11:15 Total Bilirubin 0.50 mg/dL (0.1-1.2) 04/24/18 05:03 AST 105 units/L (5-40) H 04/24/18 05:03 ALT 68 units/L (7-56) H 04/24/18 05:03 Alkaline Phosphatase 427 units/L (35-129) H 04/24/18 05:03 Total Creatine Kinase 21 units/L (55-170) L 04/24/18 11:15 CK-MB (CK-2) 3.7 ng/mL (0.0-4.0) 04/24/18 11:15 CK-MB (CK-2) Rel Index 17.6 (0-4) H 04/24/18 11:15 Troponin T 0.103 ng/mL (0.00-0.029) H* 04/24/18 11:15 Total Protein 6.5 g/dL (6.3-8.2) 04/24/18 05:03 Albumin 3.4 g/dL (3.9-5) L 04/24/18 05:03 Albumin/Globulin Ratio 1.1 % 04/24/18 05:03 Triglycerides 233 mg/dL (2-149) H 04/24/18 01:24 Cholesterol 181 mg/dL (50-199) 04/24/18 01:24 LDL Cholesterol Direct 121 mg/dL (50-130) 04/24/18 01:24 HDL Cholesterol 30 mg/dL (40-59) L 04/24/18 01:24 Cholesterol/HDL Ratio 6.03 % 04/24/18 01:24 Urine Color Yellow (Yellow) 04/24/18 09:00 Urine Turbidity Clear (Clear) 04/24/18 09:00 Urine pH 5.0 (5.0-7.0) 04/24/18 09:00 Ur Specific [place] 1.012 (1.003-1.030) 04/24/18 09:00 Urine Protein 30 mg/dl mg/dL (Negative) 04/24/18 09:00 Urine Glucose (UA) 50 mg/dL (Negative) 04/24/18 09:00 Urine Ketones Neg mg/dL (Negative) 04/24/18 09:00 Urine Blood Neg (Negative) 04/24/18 09:00 Urine Nitrite Neg (Negative) 04/24/18 09:00 Urine Bilirubin Neg (Negative) 04/24/18 09:00 Urine Urobilinogen < 2.0 mg/dL (<2.0) 04/24/18 09:00 Ur Leukocyte Esterase Neg (Negative) 04/24/18 09:00 Urine WBC (Auto) 2.0 /HPF (0.0-6.0) 04/24/18 09:00 Urine RBC (Auto) 2.0 /HPF (0.0-6.0) 04/24/18 09:00 Hyaline Casts 1 /LPF 04/24/18 09:00 Urine Mucus Few /HPF 04/24/18 09:00 Random Vancomycin 25.7 ug/mL (0-40.0) 04/24/18 05:03
[2018-04-24] MEDS ORDERED: PERCOCET 5/325 PO PRN (12:48)
[2018-04-24] MEDS ORDERED: DULCOLAX PO PRN (12:48)
[2018-04-24] MEDS ORDERED: MIRALAX 3350 PO PRN (13:35)
--- NOTE | 2018-04-24 13:41 | Event Note ---
Date: 04/24/18 Patient was recently hospitalized at [facility] due to MRSA bacteremia, osteomyelitis and presumed endocarditis. Plan had been to treat with Vancomycin for 6 weeks. He is now admitted to [facility] ICU with weakness, lethargy, hyperkalemia and junctional bradycardia. His marce-arrhythmia has now improved as he is currently in sinus rhythm in the mid-high 50s. Patient was discussed with Dr. Carcamo from [facility] who reviewed patient's records from [facility] and they will take over his cardiac management. I have asked ICU staff to add the patient to [facility]'s list. Shukri Fitzpatrick MD
[2018-04-24 13:45] LABS: Albumin 3.5 g/dL (3.9-5); Calcium 9.6 mg/dL (8.4-10.2)
--- NOTE | 2018-04-24 15:16 | Consultation ---
History of Present Illness Consult date: 04/24/18 Requesting physician: TIKA CASTANEDA History of present illness: 63-year-old man with a history of diabetes, chronic kidney disease, hepatitis B, C, subacute endocarditis, recently diagnosed was sent to the emergency room for shortness of breath. He is a very poor historian, difficult to get a history from him. In the emergency room he was Bradycardic with heart rate of 20 and he was found to be in acute renal failure. He was given IV atropine and then externally paced. Per the [facility] from the [facility] he was diagnosed with endocarditis recently, on IV vancomycin. Review of system difficult to obtain. Labs were significant for creatinine of 1.9 and K 7. He received medications for hyperkalemia and his K level has improved to 5.3. On further review of the medical records Patient was recently hospitalized at [facility] due to MRSA bacteremia, osteomyelitis and presumed endocarditis. Plan had been to treat wi th Vancomycin for 6 weeks. He is now admitted to [facility] ICU with weakness, lethargy, hyperkalemia and junctional bradycardia. Hisory of renal transplant on prednisone I have been consulted for critical care management. I reviewed his medical records, and the history is as documented by the ER physician and hospitalist service. Patient is somnolent, will wake up with stimulation and falls right back to sleep. Has not received any medications that may alter his mental status. he fed himself breakfast earlier per RN PAST MEDICAL HISTORY: diabetes, chronic kidney disease, pressure ulcers on his heels, hepatitis B, C, subacute endocarditis PAST SURGICAL HISTORY: Kidney transplant 10/2016 SOCIAL HISTORY: Denies alcohol, drugs, tobacco FAMILY HISTORY: Hypertension Medications and Allergies Allergies Allergy/AdvReac Type Severity Reaction Status Date / Time No Known Allergies Allergy Unverified 11/27/16 09:39 Home Medications Medication Instructions Recorded Confirmed Last Taken Type Aspirin [Aspirin BABY CHEW TAB] 81 mg PO QDAY 01/03/18 04/24/18 01/02/18 History Carvedilol [Coreg] 6.25 mg PO BID 01/03/18 04/24/18 01/02/18 History Cholecalciferol (Vitamin D3) 4,000 unit PO DAILY 01/03/18 04/24/18 1 Day Ago Hi story [Vitamin D3] ~01/02/18 Dextrose [Glucose Gel] 38 gm PO PRN PRN 01/03/18 04/24/18 Unknown History Docusate Sodium [Colace CAP] 100 mg PO BID PRN 01/03/18 04/24/18 01/02/18 History Entecavir 0.5 mg PO DAILY 01/03/18 04/24/18 01/02/18 History Heparin Sodium,Porcine [Heparin 5,000 units SUB-Q Q8HR 01/03/18 04/24/18 01/02/18 History Sodium] Hydralazine HCl 50 mg PO TID 01/03/18 04/24/18 01/02/18 History Multivit-Min/Iron Fum/Folic AC 1 each PO DAILY 01/03/18 04/24/18 1 Day Ago History [Czczv-Xdbabgd-Ilkarusv Tablet] ~01/02/18 NIFEdipine [Nifedipine ER] 60 mg PO BID 01/03/18 04/24/18 1 Day Ago History ~01/02/18 Pantoprazole [Protonix TAB] 40 mg PO QDAY 01/03/18 04/24/18 1 Day Ago History ~01/02/18 Pregabalin [Lyrica] 75 mg PO Q8HR 01/03/18 04/24/18 1 Day Ago History ~01/02/18 Sodium Bicarbonate 650 mg PO TID 01/03/18 04/24/18 1 Day Ago History ~01/02/18 Sodium Chloride/Aloe Vera [Valle[place] 22 ml NS Q6HR 01/03/18 04/24/18 01/02/18 History Saline Nasal Gel [place]] oxyCODONE /ACETAMINOPHEN [Percocet 1 tab PO Q6HR PRN 01/03/18 04/24/18 Unknown History 5/325 mg] predniSONE [Deltasone] 10 mg PO QDAY 01/03/18 04/24/18 1 Day Ago History ~01/02/18 Basaglar Kwikpen U-100 8 units SUB-Q HS 04/24/18 04/24/18 Unknown History Bisacodyl 10 mg PO DAILY PRN 04/24/18 04/24/18 Unknown History Fluticasone 50 mcg IN BID 04/24/18 04/24/18 Unknown History Furosemide [Lasix TAB] 40 mg PO BID 04/24/18 04/24/18 Unknown History Thiamine 100 mg PO DAILY 04/24/18 04/24/18 Unknown History Vancomycin 1.5 Gram/500 ml-D5w 1.5 gram IV DAILY 04/24/18 04/24/18 Unknown History Vit B6/Me-Thfolate/Me-B12/Ala 100 mg PO DAILY 04/24/18 04/24/18 Unknown History Active Meds: Active Medications Acetaminophen (Tylenol) 650 mg PO Q4H PRN PRN Reason: Pain MILD(1-3)/Fever >100.5/PORTILLO Aspirin (Baby Aspirin) 81 mg PO QDAY [facility] Last Admin: 04/24/18 10:12 Dose: 81 mg Documented by: Bisacodyl (Dulcolax) 10 mg PO DAILY PRN PRN Reason: Constipation Cholecalciferol (Vitamin D3) 4,000 unit PO DAILY [facility] Last Admin: 04/24/18 10:12 Dose: 4,000 unit Documented by: Dextrose (D50w (25gm) Syringe) 50 ml IV PRN PRN PRN Reason: Hypoglycemia Last Admin: 04/24/18 03:47 Dose: 50 ml Documented by: Docusate Sodium (Colace) 100 mg PO BID PRN PRN Reason: Constipation Enoxaparin Sodium (Lovenox) 30 mg SUB-Q QDAY [facility] Last Admin: 04/24/18 10:12 Dose: 30 mg Documented by: Sodium Chloride (Nacl 0.9% 1000 Ml) 1,000 mls @ 75 mls/hr IV DIRECT TORREY Insulin Glargine (Lantus) 8 units SUB-Q QHS [facility] Insulin Human Lispro (Humalog) 0 unit SUB-Q ACHS [facility]; Protocol Last Admin: 04/24/18 12:29 Dose: 3 unit Documented by: Miscellaneous Medication (Entecavir [Entecavir]) 0.5 mg PO DAILY [facility] Ondansetron HCl (Zofran) 4 mg IV Q8H PRN PRN Reason: Nausea And Vomiting Oxycodone/Acetaminophen (Percocet 5/325) 1 tab PO Q6HR PRN PRN Reason: Pain Pantoprazole Sodium (Protonix) 40 mg PO QDAY [facility] Last Admin: 04/24/18 10:12 Dose: 40 mg Documented by: Prednisone (Deltasone) 10 mg PO QDAY [facility] Last Admin: 04/24/18 10:12 Dose: 10 mg Documented by: Pregabalin (Lyrica) 75 mg PO Q8HR [facility] Last Admin: 04/24/18 14:04 Dose: 75 mg Documented by: Sodium Bicarbonate (Sodium Bicarbonate) 650 mg PO TID [facility] Last Admin: 04/24/18 14:04 Dose: 650 mg Documented by: Sodium Chloride (Sodium Chloride Flush Syringe 10 Ml) 10 ml IV BID [facility] Last Admin: 04/24/18 10:13 Dose: 10 ml Documented by: Sodium Chloride (Sodium Chloride Flush Syringe 10 Ml) 10 ml IV PRN PRN PRN Reason: LINE FLUSH Thiamine HCl (Vitamin B-1) 100 mg PO DAILY [facility] Last Admin: 04/24/18 10:12 Dose: 100 mg Documented by: Physical Examination Vital signs: Vital Signs Pulse Resp BP Pulse Ox 57 L 15 114/58 94 04/24/18 00:24 04/24/18 00:24 04/24/18 00:24 04/24/18 00:24 General appearance: Present: no acute distress - EENT Eyes: Present: PERRL, EOM intact, scleral icterus ENT: hearing intact, poor dentition, no oropharyngeal erythema - Neck Neck: Present: supple, normal ROM Left chest wall tunnelled PICC line - Respiratory Respiratory effort: normal Respiratory: bilateral: CTA - Cardiovascular Heart rate: 56 - Extremities Extremities: no ischemia, pulses intact, pulses symmetrical Extremity abnormal: edema, other (severe onychomycosis and decubitus ulcers heals bilaterally and sacrum local wound care.) Peripheral Pulses: abnormal - Abdominal General gastrointestinal: soft, non-tender, distended, normal bowel sounds - Integumentary Integumentary: Present: clear, warm, dry - Psychiatric Psychiatric: appropriate mood/affect, intact judgment & insight - Neurologic Neurologic: opens eyes on sternal rub and painful stimuli. Not obeying commands Results - Laboratory Findings CBC and BMP: 04/24/18 05:03 04/25/18 04:55 Abnormal lab findings: Abnormal Labs 04/24/18 04/24/18 04/24/18 01:24 01:24 01:24 RBC 3.37 L Hgb 10.5 L Hct 32.7 L MCV 97 H RDW 19.2 H Seg Neuts % (Manual) 76.0 H Lymphocytes % (Manual) 12.0 L Monocytes % (Manual) Lymphocytes # (Manual) Monocytes # (Manual) Sodium 126 L Potassium 7.0 H* Chloride 94.8 L Carbon Dioxide 20 L BUN 73 H Creatinine 1.9 H Glucose 256 H POC Glucose Calcium 8.3 L AST 117 H ALT 71 H Alkaline Phosphatase 439 H Total Creatine Kinase 17 L CK-MB (CK-2) Rel Index 17.6 H Troponin T 0.086 H Albumin 3.4 L Triglycerides 233 H HDL Cholesterol 30 L 04/24/18 04/24/18 04/24/18 03:05 05:03 05:03 RBC 3.36 L Hgb 10.5 L Hct 32.7 L MCV 97 H RDW 19.4 H Seg Neuts % (Manual) 71.0 H Lymphocytes % (Manual) 7.0 L Monocytes % (Manual) 15.0 H Lymphocytes # (Manual) 0.6 L Monocytes # (Manual) 1.4 H Sodium 130 L Potassium 6.0 H Chloride 95.3 L Carbon Dioxide BUN 75 H Creatinine 1.9 H Glucose 196 H POC Glucose Calcium AST 105 H ALT 68 H Alkaline Phosphatase 427 H Total Creatine Kinase 20 L CK-MB (CK-2) Rel Index 14.5 H Troponin T 0.098 H Albumin 3.4 L Triglycerides HDL Cholesterol 04/24/18 04/24/18 04/24/18 06:09 08:11 11:07 RBC Hgb Hct MCV RDW Seg Neuts % (Manual) Lymphocytes % (Manual) Monocytes % (Manual) Lymphocytes # (Manual) Monocytes # (Manual) Sodium Potassium Chloride Carbon Dioxide BUN Creatinine Glucose POC Glucose 186 H 132 H 172 H Calcium AST ALT Alkaline Phosphatase Total Creatine Kinase CK-MB (CK-2) Rel Index Troponin T Albumin Triglycerides HDL Cholesterol 04/24/18 04/24/18 04/24/18 11:15 11:15 11:29 RBC Hgb Hct MCV RDW Seg Neuts % (Manual) Lymphocytes % (Manual) Monocytes % (Manual) Lymphocytes # (Manual) Monocytes # (Manual) Sodium 133 L Potassium 5.3 H Chloride 95.5 L Carbon Dioxide BUN 69 H Creatinine 1.6 H Glucose 170 H POC Glucose 181 H Calcium AST ALT Alkaline Phosphatase Total Creatine Kinase 21 L CK-MB (CK-2) Rel Index 17.6 H Troponin T 0.103 H* Albumin Triglycerides HDL Cholesterol 04/24/18 04/24/18 13:11 14:36 RBC Hgb Hct MCV RDW Seg Neuts % (Manual) Lymphocytes % (Manual) Monocytes % (Manual) Lymphocytes # (Manual) Monocytes # (Manual) Sodium 133 L Potassium 5.4 H Chloride 94.7 L Carbon Dioxide BUN 70 H Creatinine 1.6 H Glucose 160 H POC Glucose 180 H Calcium AST 102 H ALT 63 H Alkaline Phosphatase 419 H Total Creatine Kinase CK-MB (CK-2) Rel Index Troponin T Albumin 3.5 L Triglycerides HDL Cholesterol Assessment and Plan Symptomatic bradycardia secondary to hyperkalemia, beta al Acute renal failure Hyperkalemia Endocarditis Diabetes Pressure ulcers Hepatitis B, C Encephaloapthy -ICU admission -Treat hyperkalemia per protocol -Avoid nephrotoxic agents -Hold beta blockers -Renal consult notes reviewed -Aspiration precautions -Accuchecks with glycemic control, avoid hypoglycemia -VTE prophylaxis -Antibiotics to complete course -Wound care consult fro sacral decubitus ulcer -Mobility, PT/OT, off loading -Continue to monitor closely in the ICU, he is at risk of acute decompensation and PEA arrest from electrolyte imbalance and ensuing arrhythmia. No further external pacing per electro-audio recording engineer. The high probability of a clinically significant, sudden or life-threatening deterioration of the [cardiovascular, renal, neurology] system(s) required my full and direct attention, intervention and personal management. The aggregate critical care time was [40] minutes without overlap. Time includes spent on; [x] Data Review and interpretation [x] Patient assessment and monitoring of vital signs [x] Documentation [x] Medication orders and management
[2018-04-24] MEDS: LANTUS SUB-Q SCH (21:50)
[2018-04-25] MEDS ORDERED: KIONEX PO ONE (01:25)
[2018-04-25] MEDS: LYRICA PO SCH ×3 (05:45→21:27)
[2018-04-25 06:00] LABS: Albumin 3.1 g/dL (3.9-5); Calcium 8.6 mg/dL (8.4-10.2)
[2018-04-25] MEDS ORDERED: VANCOMYCIN 1,250 MG in NACL 0.9% 250ML 250 ML IV SCH (06:00)
--- NOTE | 2018-04-25 07:22 | Progress Note ---
Assessment and Plan 1. Acute kidney injury: Suspect vasomotor / hemodynamic JERRICA in the setting of volume depletion +/- sepsis. Renal function is improving. Continue IV fluids. Renal US was negative for obstruction. Monitor renal function. 2. FEN: Hyperkalemia, improved with treatment. Continue IV fluids. Monitor lytes. 3. Kidney transplantation status: DD transplant on 11/02/16 at [place]. Continue Prednisone. 4. 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 5. Bilateral heel osteomyelitis. 6. Invasive fungal infection with pulmonary nodules, sinusitis and skull base involvement: Continue Isavuconazonium. Pt's own medication. 7. Hepatitis C (genotype 3). 8. Hep B: On Entecavir. Discussed with his sister over the phone and answered all the questions. Subjective Date of service: 04/25/18 Interval history: Patient is feeling better. Objective - Vital Signs Vital signs: Vital Signs - 12hr 04/24/18 04/24/18 04/24/18 19:30 19:40 19:50 Temperature Pulse Rate 63 62 62 Pulse Rate [ Apical] Pulse Rate [ Right Dorsalis Pedis] Respiratory 6 L 18 18 Rate Respiratory Rate [Right Foot] Blood Pressure 128/64 128/64 128/64 O2 Sat by Pulse 100 100 100 Oximetry 04/24/18 04/24/18 04/24/18 20:00 20:10 20:20 Temperature 97.9 F Pulse Rate 62 64 62 Pulse Rate [ 63 Apical] Pulse Rate [ 63 Right Dorsalis Pedis] Respiratory 19 16 18 Rate Respiratory 17 Rate [Right Foot] Blood Pressure 142/64 142/64 142/64 O2 Sat by Pulse 100 100 100 Oximetry 04/24/18 04/24/18 04/24/18 20:30 20:40 20:50 Temperature Pulse Rate 62 64 63 Pulse Rate [ Apical] Pulse Rate [ Right Dorsalis Pedis] Respiratory 18 18 18 Rate Respiratory Rate [Right Foot] Blood Pressure 142/64 142/64 142/64 O2 Sat by Pulse 100 100 99 Oximetry 04/24/18 04/24/18 04/24/18 21:00 21:10 21:20 Temperature Pulse Rate 63 63 63 Pulse Rate [ Apical] Pulse Rate [ Right Dorsalis Pedis] Respiratory 18 18 16 Rate Respiratory Rate [Right Foot] Blood Pressure 138/58 138/58 138/58 O2 Sat by Pulse 99 99 100 Oximetry 04/24/18 04/24/18 04/24/18 21:30 21:40 21:50 Temperature Pulse Rate 63 63 63 Pulse Rate [ Apical] Pulse Rate [ Right Dorsalis Pedis] Respiratory 17 17 19 Rate Respiratory Rate [Right Foot] Blood Pressure 138/58 138/58 138/58 O2 Sat by Pulse 100 100 100 Oximetry 04/24/18 04/24/18 04/24/18 22:00 22:10 22:20 Temperature Pulse Rate 64 63 64 Pulse Rate [ Apical] Pulse Rate [ Right Dorsalis Pedis] Respiratory 19 18 17 Rate Respiratory Rate [Right Foot] Blood Pressure 145/62 145/62 145/62 O2 Sat by Pulse 100 100 100 Oximetry 04/24/18 04/24/18 04/24/18 22:30 22:40 22:50 Temperature Pulse Rate 65 65 65 Pulse Rate [ Apical] Pulse Rate [ Right Dorsalis Pedis] Respiratory 17 17 17 Rate Respiratory Rate [Right Foot] Blood Pressure 145/62 145/62 145/62 O2 Sat by Pulse 100 100 100 Oximetry 04/24/18 04/24/18 04/24/18 22:57 23:00 23:09 Temperature Pulse Rate 65 73 Pulse Rate [ Apical] Pulse Rate [ Right Dorsalis Pedis] Respiratory 18 16 Rate Respiratory 17 Rate [Right Foot] Blood Pressure 147/63 147/63 O2 Sat by Pulse 100 99 Oximetry 04/24/18 04/24/18 04/24/18 23:10 23:20 23:30 Temperature Pulse Rate 72 72 71 Pulse Rate [ Apical] Pulse Rate [ Right Dorsalis Pedis] Respiratory 13 14 18 Rate Respiratory Rate [Right Foot] Blood Pressure 147/63 147/63 147/63 O2 Sat by Pulse 99 98 99 Oximetry 04/24/18 04/24/18 04/24/18 23:31 23:33 23:40 Temperature Pulse Rate 72 Pulse Rate [ 65 Apical] Pulse Rate [ 65 Right Dorsalis Pedis] Respiratory 17 13 Rate Respiratory 17 Rate [Right Foot] Blood Pressure 147/63 O2 Sat by Pulse 99 Oximetry 04/24/18 04/24/18 04/24/18 23:42 23:50 23:55 Temperature 97.7 F Pulse Rate 70 71 Pulse Rate [ Apical] Pulse Rate [ Right Dorsalis Pedis] Respiratory 18 19 Rate Respiratory Rate [Right Foot] Blood Pressure 147/63 147/63 O2 Sat by Pulse 99 99 Oximetry 04/25/18 04/25/18 04/25/18 00:00 00:10 00:20 Temperature Pulse Rate 70 71 74 Pulse Rate [ Apical] Pulse Rate [ Right Dorsalis Pedis] Respiratory 15 13 14 Rate Respiratory Rate [Right Foot] Blood Pressure 155/69 155/69 155/69 O2 Sat by Pulse 98 100 98 Oximetry 04/25/18 04/25/18 04/25/18 00:30 00:40 00:50 Temperature Pulse Rate 77 75 75 Pulse Rate [ Apical] Pulse Rate [ Right Dorsalis Pedis] Respiratory 14 11 L 13 Rate Respiratory Rate [Right Foot] Blood Pressure 155/69 155/69 155/69 O2 Sat by Pulse 98 Oximetry 04/25/18 04/25/18 04/25/18 01:00 01:10 01:20 Temperature Pulse Rate 71 70 71 Pulse Rate [ Apical] Pulse Rate [ Right Dorsalis Pedis] Respiratory 12 17 16 Rate Respiratory Rate [Right Foot] Blood Pressure 148/64 148/64 148/64 O2 Sat by Pulse 100 99 100 Oximetry 04/25/18 04/25/18 04/25/18 01:30 01:40 01:50 Temperature Pulse Rate 70 69 69 Pulse Rate [ Apical] Pulse Rate [ Right Dorsalis Pedis] Respiratory 16 17 16 Rate Respiratory Rate [Right Foot] Blood Pressure 148/64 148/64 148/64 O2 Sat by Pulse 100 100 100 Oximetry 04/25/18 04/25/18 04/25/18 01:52 02:00 02:10 Temperature Pulse Rate 65 69 69 Pulse Rate [ Apical] Pulse Rate [ Right Dorsalis Pedis] Respiratory 17 19 Rate Respiratory Rate [Right Foot] Blood Pressure 134/51 134/51 O2 Sat by Pulse 99 97 Oximetry 04/25/18 04/25/18 04/25/18 02:20 02:30 02:40 Temperature Pulse Rate 70 69 69 Pulse Rate [ Apical] Pulse Rate [ Right Dorsalis Pedis] Respiratory 18 18 17 Rate Respiratory Rate [Right Foot] Blood Pressure 134/51 134/51 134/51 O2 Sat by Pulse 100 100 100 Oximetry 04/25/18 04/25/18 04/25/18 02:50 03:00 03:10 Temperature Pulse Rate 67 67 66 Pulse Rate [ Apical] Pulse Rate [ Right Dorsalis Pedis] Respiratory 17 18 16 Rate Respiratory Rate [Right Foot] Blood Pressure 134/51 144/55 144/55 O2 Sat by Pulse 100 100 100 Oximetry 04/25/18 04/25/18 04/25/18 03:20 03:30 03:40 Temperature Pulse Rate 65 64 64 Pulse Rate [ Apical] Pulse Rate [ Right Dorsalis Pedis] Respiratory 17 15 16 Rate Respiratory Rate [Right Foot] Blood Pressure 144/55 144/55 144/55 O2 Sat by Pulse 100 100 100 Oximetry 04/25/18 04/25/18 04/25/18 03:50 04:00 04:10 Temperature 98.0 F Pulse Rate 63 65 66 Pulse Rate [ 62 Apical] Pulse Rate [ 62 Right Dorsalis Pedis] Respiratory 17 18 17 Rate Respiratory Rate [Right Foot] Blood Pressure 144/55 144/55 143/57 O2 Sat by Pulse 100 99 100 Oximetry 04/25/18 04/25/18 04/25/18 04:20 04:30 04:40 Temperature Pulse Rate 64 71 66 Pulse Rate [ Apical] Pulse Rate [ Right Dorsalis Pedis] Respiratory 17 12 11 L Rate Respiratory Rate [Right Foot] Blood Pressure 143/57 143/57 143/57 O2 Sat by Pulse 99 99 100 Oximetry 04/25/18 04/25/18 04/25/18 04:50 05:00 05:10 Temperature Pulse Rate 67 68 68 Pulse Rate [ Apical] Pulse Rate [ Right Dorsalis Pedis] Respiratory 14 14 16 Rate Respiratory Rate [Right Foot] Blood Pressure 143/57 143/57 175/80 O2 Sat by Pulse 100 100 100 Oximetry 04/25/18 04/25/18 04/25/18 05:20 05:30 05:40 Temperature Pulse Rate 71 70 70 Pulse Rate [ Apical] Pulse Rate [ Right Dorsalis Pedis] Respiratory 18 12 11 L Rate Respiratory Rate [Right Foot] Blood Pressure 175/80 175/80 175/80 O2 Sat by Pulse 99 100 100 Oximetry 04/25/18 04/25/18 04/25/18 05:50 06:00 06:10 Temperature Pulse Rate 70 68 72 Pulse Rate [ Apical] Pulse Rate [ Right Dorsalis Pedis] Respiratory 14 14 16 Rate Respiratory Rate [Right Foot] Blood Pressure 168/73 169/72 169/72 O2 Sat by Pulse 100 100 Oximetry 04/25/18 06:20 Temperature Pulse Rate 69 Pulse Rate [ Apical] Pulse Rate [ Right Dorsalis Pedis] Respiratory 14 Rate Respiratory Rate [Right Foot] Blood Pressure 175/73 O2 Sat by Pulse 100 Oximetry - General Appearance General appearance: well-developed, well-nourished, appears stated age, other (not in distress) EENT: ATNC, PERRL, mucous membranes moist, hearing intact, vision intact Neck: supple Respiratory: Present: Clear to Ascultation Cardiology: regular, S1S2, no murmurs Gastrointestinal: normoactive bowel sounds, no tenderness, no distended Integumentary: ulcer (bilateral heels) Neurologic: no focal deficit, no asterixis, alert and oriented x3 Musculoskeletal: other (no edema, left great toe amputated.) - Lab 04/24/18 05:03 04/25/18 04:55 Most recent lab results Calcium 8.6 mg/dL (8.4-10.2) 04/25/18 04:55 Phosphorus 2.70 mg/dL (2.5-4.5) 04/25/18 04:55 Medications & Allergies - Medications Allergies/Adverse Reactions: Allergies No Known Allergies Allergy (Unverified 11/27/16 09:39) Home Medications: Home Medications Medication Instructions Recorded Confirmed Last Taken Type Aspirin [Aspirin BABY CHEW TAB] 81 mg PO QDAY 01/03/18 04/24/18 01/02/18 History Carvedilol [Coreg] 6.25 mg PO BID 01/03/18 04/24/18 01/02/18 History Cholecalciferol (Vitamin D3) 4,000 unit PO DAILY 01/03/18 04/24/18 1 Day Ago History [Vitamin D3] ~01/02/18 Dextrose [Glucose Gel] 38 gm PO PRN PRN 01/03/18 04/24/18 Unknown History Docusate Sodium [Colace CAP] 100 mg PO BID PRN 01/03/18 04/24/18 01/02/18 History Entecavir 0.5 mg PO DAILY 01/03/18 04/24/18 01/02/18 History Heparin Sodium,Porcine [Heparin 5,000 units SUB-Q Q8HR 01/03/18 04/24/18 01/02/18 History Sodium] Hydralazine HCl 50 mg PO TID 01/03/18 04/24/18 01/02/18 History Multivit-Min/Iron Fum/Folic AC 1 each PO DAILY 01/03/18 04/24/18 1 Day Ago History [Stiub-Cppbavb-Aqtqerkf Tablet] ~01/02/18 NIFEdipine [Nifedipine ER] 60 mg PO BID 01/03/18 04/24/18 1 Day Ago History ~01/02/18 Pantoprazole [Protonix TAB] 40 mg PO QDAY 01/03/18 04/24/18 1 Day Ago History ~01/02/18 Pregabalin [Lyrica] 75 mg PO Q8HR 01/03/18 04/24/18 1 Day Ago History ~01/02/18 Sodium Bicarbonate 650 mg PO TID 01/03/18 04/24/18 1 Day Ago History ~01/02/18 Sodium Chloride/Aloe Vera [Carver 22 ml NS Q6HR 01/03/18 04/24/18 01/02/18 History Saline Nasal Gel [place]] oxyCODONE /ACETAMINOPHEN [Percocet 1 tab PO Q6HR PRN 01/03/18 04/24/18 Unknown History 5/325 mg] predniSONE [Deltasone] 10 mg PO QDAY 01/03/18 04/24/18 1 Day Ago History ~01/02/18 Basaglar Kwikpen U-100 8 units SUB-Q HS 04/24/18 04/24/18 Unknown History Bisacodyl 10 mg PO DAILY PRN 04/24/18 04/24/18 Unknown History Fluticasone 50 mcg IN BID 04/24/18 04/24/18 Unknown History Furosemide [Lasix TAB] 40 mg PO BID 04/24/18 04/24/18 Unknown History Thiamine 100 mg PO DAILY 04/24/18 04/24/18 Unknown History Vancomycin 1.5 Gram/500 ml-D5w 1.5 gram IV DAILY 04/24/18 04/24/18 Unknown History Vit B6/Me-Thfolate/Me-B12/Ala 100 mg PO DAILY 04/24/18 04/24/18 Unknown History Active Medications: Generic Name Dose Route Start Last Admin Trade Name Freq PRN Reason Stop Dose Admin Acetaminophen 650 mg 04/24/18 02:33 Tylenol PO Q4H PRN Pain MILD(1-3)/Fever >100.5/PORTILLO Aspirin 81 mg 04/24/18 10:00 04/24/18 10:12 Baby Aspirin PO 81 mg QDAY TORREY Administration Bisacodyl 10 mg 04/24/18 12:48 Dulcolax PO DAILY PRN Constipation Cholecalciferol 4,000 unit 04/24/18 10:00 04/24/18 10:12 Vitamin D3 PO 4,000 unit DAILY TORREY Administration Dextrose 50 ml 04/24/18 03:17 04/24/18 03:47 D50w (25gm) Syringe IV 50 ml PRN PRN Administration Hypoglycemia Docusate Sodium 100 mg 04/24/18 04:01 Colace PO BID PRN Constipation Enoxaparin Sodium 30 mg 04/24/18 10:00 04/24/18 10:12 Lovenox SUB-Q 30 mg QDAY TORREY Administration Sodium Chloride 1,000 mls @ 50 mls/hr 04/24/18 04:00 04/25/18 01:56 Nacl 0.9% 1000 Ml IV 50 mls/hr DIRECT TORREY Administration Insulin Glargine 8 units 04/24/18 22:00 04/24/18 21:50 Lantus SUB-Q 8 units QHS TORREY Administration Insulin Human Lispro 0 unit 04/24/18 07:30 04/24/18 23:40 Humalog SUB-Q 2 unit ACHS TORREY Administration Protocol Miscellaneous Medication 0.5 mg 04/24/18 10:00 Entecavir [Entecavir] PO DAILY [facility] Miscellaneous Medication 2 each 04/25/18 10:00 Non-Formulary PO DAILY TORREY Ondansetron HCl 4 mg 04/24/18 02:33 Zofran IV Q8H PRN Nausea And Vomiting Oxycodone/Acetaminophen 1 tab 04/24/18 12:48 Percocet 5/325 PO Q6HR PRN Pain Pantoprazole Sodium 40 mg 04/24/18 10:00 04/24/18 10:12 Protonix PO 40 mg QDAY TORREY Administration Prednisone 10 mg 04/24/18 10:00 04/24/18 10:12 Deltasone PO 10 mg QDAY TORREY Administration Pregabalin 75 mg 04/24/18 06:00 04/25/18 05:45 Lyrica PO 75 mg Q8HR TORREY Administration Sodium Bicarbonate 650 mg 04/24/18 08:00 04/24/18 20:48 Sodium Bicarbonate PO 650 mg TID TORREY Administration Sodium Chloride 10 ml 04/24/18 10:00 04/24/18 22:05 Sodium Chloride Flush Syringe 10 Ml IV 10 ml BID TORREY Administration Sodium Chloride 10 ml 04/24/18 02:33 Sodium Chloride Flush Syringe 10 Ml IV PRN PRN LINE FLUSH Thiamine HCl 100 mg 04/24/18 10:00 04/24/18 10:12 Vitamin B-1 PO 100 mg DAILY TORREY Administration
[2018-04-25] MEDS: SODIUM BICARBONATE PO SCH ×3 (08:27→21:27)
[2018-04-25] MEDS: HumaLOG SUB-Q SCH ×4 (08:27→21:31)
[2018-04-25] MEDS: VITAMIN D3 PO SCH (09:44)
[2018-04-25] MEDS: PROTONIX PO SCH (09:44)
[2018-04-25] MEDS: BABY ASPIRIN PO SCH (09:44)
[2018-04-25] MEDS: DELTASONE PO SCH (09:44)
[2018-04-25] MEDS: LOVENOX SUB-Q SCH (09:44)
[2018-04-25] MEDS: SODIUM CHLORIDE FLUSH SYRINGE 10 ML IV SCH ×2 (09:45→21:29)
[2018-04-25] MEDS: VITAMIN B-1 PO SCH (09:46)
[2018-04-25] MEDS ORDERED: NON-FORMULARY PO SCH (10:00)
--- NOTE | 2018-04-25 11:27 | Progress Note ---
Assessment and Plan Symptomatic bradycardia secondary to hyperkalemia +/1 beta blockade Acute renal failure (on CKD) Hyperkalemia Endocarditis (Presumed - patient reportedly could not tolerate a DOM at [place]) Diabetes type II Pressure ulcers Hepatitis B, C Acute Encephaloapthy (At patients request and with RN in room i spoke to his care-hadoop infrastructure architect / Sister and explained that valve root infection could also present this way and he has to see the cardiology team here before he is discharged; i also answered all other questions she asked as best i could) - await cardiology evaluation - continue medical hyperkalemia management (kayexalate, calcium, glucose insulin protocol) - continue supplemental oxygen and wean to keep O2 sat's > 90% - continue anti-infective's per ID rec's; tentatively change vancomycin to zyvox) - nephrology evaluation ongoing - PT/OT - resume pertinent home med's - GI & DVT prophylaxis - introduce oral meals - continue prednisone for immunosuppresion re: kidney transplant - continue other care per attending / other consultants ... will observe in ICU till cleared by cardiology for transfer to telemetry The high probability of a clinically significant, sudden or life-threatening deterioration of the [cardiovascular, renal, neurology] system(s) required my full and direct attention, intervention and personal management. The aggregate critical care time was [40] minutes without overlap. Time includes spent on; [x] Data Review and interpretation [x] Patient assessment and monitoring of vital signs [x] Documentation [x] Medication orders and management Subjective Date of service: 04/25/18 Principal diagnosis: Symptomatic bradycardia; JERRICA on CKD; Hyperkalemia; Endocarditis; DM type II Interval history: Patient is seen today for: Symptomatic bradycardia (secondary to hyperkalemia +/1 beta blockade); Acute renal failure (on CKD); Hyperkalemia; Endocarditis (Presumed - patient reportedly could not tolerate a DOM at [place]); Diabetes type II Seen and examined at bedside; 24hour events reviewed; nursing and respiratory care staff consulted; no adverse overnight events reported to me; resting peacefully in bed; looks and feels better; denies acute chest pains or palpitations; states that he has a podiatry / foot clinic appointment tomorrow and wants to be discharged Objective Vital Signs - 12hr 04/24/18 04/24/18 04/24/18 23:30 23:31 23:33 Temperature Pulse Rate 71 Pulse Rate [ 65 Apical] Pulse Rate [ 65 Right Dorsalis Pedis] Respiratory 18 17 Rate Respiratory 17 Rate [Right Foot] Blood Pressure 147/63 O2 Sat by Pulse 99 Oximetry 04/24/18 04/24/18 04/24/18 23:40 23:42 23:50 Temperature Pulse Rate 72 70 71 Pulse Rate [ Apical] Pulse Rate [ Right Dorsalis Pedis] Respiratory 13 18 19 Rate Respiratory Rate [Right Foot] Blood Pressure 147/63 147/63 147/63 O2 Sat by Pulse 99 99 99 Oximetry 04/24/18 04/25/18 04/25/18 23:55 00:00 00:10 Temperature 97.7 F Pulse Rate 70 71 Pulse Rate [ Apical] Pulse Rate [ Right Dorsalis Pedis] Respiratory 15 13 Rate Respiratory Rate [Right Foot] Blood Pressure 155/69 155/69 O2 Sat by Pulse 98 100 Oximetry 04/25/18 04/25/18 04/25/18 00:20 00:30 00:40 Temperature Pulse Rate 74 77 75 Pulse Rate [ Apical] Pulse Rate [ Right Dorsalis Pedis] Respiratory 14 14 11 L Rate Respiratory Rate [Right Foot] Blood Pressure 155/69 155/69 155/69 O2 Sat by Pulse 98 Oximetry 04/25/18 04/25/18 04/25/18 00:50 01:00 01:10 Temperature Pulse Rate 75 71 70 Pulse Rate [ Apical] Pulse Rate [ Right Dorsalis Pedis] Respiratory 13 12 17 Rate Respiratory Rate [Right Foot] Blood Pressure 155/69 148/64 148/64 O2 Sat by Pulse 98 100 99 Oximetry 04/25/18 04/25/18 04/25/18 01:20 01:30 01:40 Temperature Pulse Rate 71 70 69 Pulse Rate [ Apical] Pulse Rate [ Right Dorsalis Pedis] Respiratory 16 16 17 Rate Respiratory Rate [Right Foot] Blood Pressure 148/64 148/64 148/64 O2 Sat by Pulse 100 100 100 Oximetry 04/25/18 04/25/18 04/25/18 01:50 01:52 02:00 Temperature Pulse Rate 69 65 69 Pulse Rate [ Apical] Pulse Rate [ Right Dorsalis Pedis] Respiratory 16 17 Rate Respiratory Rate [Right Foot] Blood Pressure 148/64 134/51 O2 Sat by Pulse 100 99 Oximetry 04/25/18 04/25/1819 02:10 02:20 02:30 Temperature Pulse Rate 69 70 69 Pulse Rate [ Apical] Pulse Rate [ Right Dorsalis Pedis] Respiratory 19 18 18 Rate Respiratory Rate [Right Foot] Blood Pressure 134/51 134/51 134/51 O2 Sat by Pulse 97 100 100 Oximetry 04/25/18 04/25/18 04/25/18 02:40 02:50 03:00 Temperature Pulse Rate 69 67 67 Pulse Rate [ Apical] Pulse Rate [ Right Dorsalis Pedis] Respiratory 17 17 18 Rate Respiratory Rate [Right Foot] Blood Pressure 134/51 134/51 144/55 O2 Sat by Pulse 100 100 100 Oximetry 04/25/18 04/25/18 04/25/18 03:10 03:20 03:30 Temperature Pulse Rate 66 65 64 Pulse Rate [ Apical] Pulse Rate [ Right Dorsalis Pedis] Respiratory 16 17 15 Rate Respiratory Rate [Right Foot] Blood Pressure 144/55 144/55 144/55 O2 Sat by Pulse 100 100 100 Oximetry 04/25/18 04/25/18 04/25/18 03:40 03:50 04:00 Temperature 98.0 F Pulse Rate 64 63 65 Pulse Rate [ 62 Apical] Pulse Rate [ 62 Right Dorsalis Pedis] Respiratory 16 17 18 Rate Respiratory Rate [Right Foot] Blood Pressure 144/55 144/55 144/55 O2 Sat by Pulse 100 100 99 Oximetry 04/25/18 04/25/18 04/25/18 04:10 04:20 04:30 Temperature Pulse Rate 66 64 71 Pulse Rate [ Apical] Pulse Rate [ Right Dorsalis Pedis] Respiratory 17 17 12 Rate Respiratory Rate [Right Foot] Blood Pressure 143/57 143/57 143/57 O2 Sat by Pulse 100 99 99 Oximetry 04/25/18 04/25/18 04/25/18 04:40 04:50 05:00 Temperature Pulse Rate 66 67 68 Pulse Rate [ Apical] Pulse Rate [ Right Dorsalis Pedis] Respiratory 11 L 14 14 Rate Respiratory Rate [Right Foot] Blood Pressure 143/57 143/57 143/57 O2 Sat by Pulse 100 100 100 Oximetry 04/25/18 04/25/18 04/25/18 05:10 05:20 05:30 Temperature Pulse Rate 68 71 70 Pulse Rate [ Apical] Pulse Rate [ Right Dorsalis Pedis] Respiratory 16 18 12 Rate Respiratory Rate [Right Foot] Blood Pressure 175/80 175/80 175/80 O2 Sat by Pulse 100 99 100 Oximetry 04/25/18 04/25/18 04/25/18 05:40 05:50 06:00 Temperature Pulse Rate 70 70 68 Pulse Rate [ Apical] Pulse Rate [ Right Dorsalis Pedis] Respiratory 11 L 14 14 Rate Respiratory Rate [Right Foot] Blood Pressure 175/80 168/73 169/72 O2 Sat by Pulse 100 100 100 Oximetry 04/25/18 04/25/18 04/25/18 06:10 06:20 06:30 Temperature Pulse Rate 72 69 68 Pulse Rate [ Apical] Pulse Rate [ Right Dorsalis Pedis] Respiratory 16 14 10 L Rate Respiratory Rate [Right Foot] Blood Pressure 169/72 175/73 175/73 O2 Sat by Pulse 100 100 Oximetry 04/25/18 04/25/18 04/25/18 06:40 06:50 07:00 Temperature Pulse Rate 68 64 67 Pulse Rate [ Apical] Pulse Rate [ Right Dorsalis Pedis] Respiratory 17 14 16 Rate Respiratory Rate [Right Foot] Blood Pressure 175/73 175/73 184/78 O2 Sat by Pulse 100 100 100 Oximetry 04/25/18 04/25/18 04/25/18 07:10 07:20 07:30 Temperature Pulse Rate 64 63 61 Pulse Rate [ Apical] Pulse Rate [ Right Dorsalis Pedis] Respiratory 15 16 15 Rate Respiratory Rate [Right Foot] Blood Pressure 184/78 184/78 179/71 O2 Sat by Pulse 100 100 100 Oximetry 04/25/18 04/25/18 07:40 08:24 Temperature Pulse Rate 62 Pulse Rate [ Apical] Pulse Rate [ Right Dorsalis Pedis] Respiratory 16 Rate Respiratory Rate [Right Foot] Blood Pressure 179/71 O2 Sat by Pulse 100 99 Oximetry Constitutional: no acute distress, alert, other (elderly looking obese male, normocephalic and atraumatic with normal respiratory effort at rest) Eyes: non-icteric ENT: oropharynx moist, other (Mallampati 3) Neck: supple, no lymphadenopathy, no JVD, other (no thyromegaly) Effort: mildly labored Ascultation: Bilateral: diminished breath sounds, rales (inspiratory in posterior bases) Percussion: Bilateral: not dull Cardiovascular: regular rate and rhythm, other (no rubs) Gastrointestinal: normoactive bowel sounds, soft, non-tender, non-distended, other (no palpable HSM) Integumentary: other (dressings to both feet) Extremities: no cyanosis, no ischemia or petechiae, edema (trace), other (dressings to both feet) Neurologic: normal mental status, non-focal exam, pupils equal and round, CN II- XII normal, motor strength normal and Psychiatric: mood appropriate, affect normal CBC and BMP: 04/24/18 05:03 04/25/18 04:55 ABG, PT/INR, D-dimer: ABG POC ABG pH 7.384 (7.35-7.45) 04/24/18 16:42 POC ABG pCO2 41.1 (35-45) 04/24/18 16:42 POC ABG pO2 73 (80-105) L 04/24/18 16:42 POC ABG HCO3 24.6 04/24/18 16:42 POC ABG Total CO2 26 04/24/18 16:42 POC ABG O2 Sat 94 04/24/18 16:42 Abnormal lab findings: Abnormal Labs 04/24/18 04/24/18 04/24/18 01:24 01:24 01:24 RBC 3.37 L Hgb 10.5 L Hct 32.7 L MCV 97 H RDW 19.2 H Seg Neuts % (Manual) 76.0 H Lymphocytes % (Manual) 12.0 L Monocytes % (Manual) Lymphocytes # (Manual) Monocytes # (Manual) POC ABG pO2 Sodium 126 L Potassium 7.0 H* Chloride 94.8 L Carbon Dioxide 20 L BUN 73 H Creatinine 1.9 H Glucose 256 H POC Glucose Calcium 8.3 L AST 117 H ALT 71 H Alkaline Phosphatase 439 H Total Creatine Kinase 17 L CK-MB (CK-2) Rel Index 17.6 H Troponin T 0.086 H Albumin 3.4 L Triglycerides 233 H HDL Cholesterol 30 L 04/24/18 04/24/18 04/24/18 03:05 05:03 05:03 RBC 3.36 L Hgb 10.5 L Hct 32.7 L MCV 97 H RDW 19.4 H Seg Neuts % (Manual) 71.0 H Lymphocytes % (Manual) 7.0 L Monocytes % (Manual) 15.0 H Lymphocytes # (Manual) 0.6 L Monocytes # (Manual) 1.4 H POC ABG pO2 Sodium 130 L Potassium 6.0 H Chloride 95.3 L Carbon Dioxide BUN 75 H Creatinine 1.9 H Glucose 196 H POC Glucose Calcium AST 105 H ALT 68 H Alkaline Phosphatase 427 H Total Creatine Kinase 20 L CK-MB (CK-2) Rel Index 14.5 H Troponin T 0.098 H Albumin 3.4 L Triglycerides HDL Cholesterol 04/24/18 04/24/18 04/24/18 06:09 08:11 11:07 RBC Hgb Hct MCV RDW Seg Neuts % (Manual) Lymphocytes % (Manual) Monocytes % (Manual) Lymphocytes # (Manual) Monocytes # (Manual) POC ABG pO2 Sodium Potassium Chloride Carbon Dioxide BUN Creatinine Glucose POC Glucose 186 H 132 H 172 H Calcium AST ALT Alkaline Phosphatase Total Creatine Kinase CK-MB (CK-2) Rel Index Troponin T Albumin Triglycerides HDL Cholesterol 04/24/18 04/24/18 04/24/18 11:15 11:15 11:29 RBC Hgb Hct MCV RDW Seg Neuts % (Manual) Lymphocytes % (Manual) Monocytes % (Manual) Lymphocytes # (Manual) Monocytes # (Manual) POC ABG pO2 Sodium 133 L Potassium 5.3 H Chloride 95.5 L Carbon Dioxide BUN 69 H Creatinine 1.6 H Glucose 170 H POC Glucose 181 H Calcium AST ALT Alkaline Phosphatase Total Creatine Kinase 21 L CK-MB (CK-2) Rel Index 17.6 H Troponin T 0.103 H* Albumin Triglycerides HDL Cholesterol 04/24/18 04/24/18 04/24/18 13:11 14:36 16:26 RBC Hgb Hct MCV RDW Seg Neuts % (Manual) Lymphocytes % (Manual) Monocytes % (Manual) Lymphocytes # (Manual) Monocytes # (Manual) POC ABG pO2 Sodium 133 L Potassium 5.4 H Chloride 94.7 L Carbon Dioxide BUN 70 H Creatinine 1.6 H Glucose 160 H POC Glucose 180 H 217 H Calcium AST 102 H ALT 63 H Alkaline Phosphatase 419 H Total Creatine Kinase CK-MB (CK-2) Rel Index Troponin T Albumin 3.5 L Triglycerides HDL Cholesterol 04/24/18 04/24/18 04/24/18 16:42 20:33 21:39 RBC Hgb Hct MCV RDW Seg Neuts % (Manual) Lymphocytes % (Manual) Monocytes % (Manual) Lymphocytes # (Manual) Monocytes # (Manual) POC ABG pO2 73 L Sodium Potassium 5.4 H Chloride Carbon Dioxide BUN Creatinine Glucose POC Glucose 231 H Calcium AST ALT Alkaline Phosphatase Total Creatine Kinase CK-MB (CK-2) Rel Index Troponin T Albumin Triglycerides HDL Cholesterol 04/25/18 04/25/18 04/25/18 00:15 04:55 08:29 RBC Hgb Hct MCV RDW Seg Neuts % (Manual) Lymphocytes % (Manual) Monocytes % (Manual) Lymphocytes # (Manual) Monocytes # (Manual) POC ABG pO2 Sodium Potassium Chloride Carbon Dioxide BUN 55 H Creatinine Glucose 162 H POC Glucose 248 H 106 H Calcium AST 72 H ALT 59 H Alkaline Phosphatase 416 H Total Creatine Kinase CK-MB (CK-2) Rel Index Troponin T Albumin 3.1 L Triglycerides HDL Cholesterol Chest x-ray: image reviewed (cardiomegaly; mild interstitial edema; left sided CVL with tip in RA) Allied health notes reviewed: nursing
--- NOTE | 2018-04-25 13:08 | Consultation ---
History of Present Illness - Reason for Consult Consult date: 04/25/18 MRSA bacteremia/endocarditis, renal transplant, b/l heel osteomyelitis Requesting physician: LEATHA KAUR - History of Present Illness The patient is a 63-year-old male with chronic bilateral lower extremity wound ulcers, diabetes mellitus type 2, hypertension, hepatitis B and C, status post renal transplant in November 2016. 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 Due to infectious issues, his immunosupp ression is currently just prednisone. Tacrolimus and CellCept have been discontinued. Recently at [place], patient was diagnosed with MRSA bacteremia and presumed endocarditis and is currently receiving IV vancomycin through a left upper chest tunneled PICC. He gets wound care to b/l heel osteomyelitis along with IV Vancomycin. He is currently at a rehabilitation facility from where he was sent to the ER on 04/24/2018 with significant bradycardia requiring external pacing. He was noted to have hyperkalemia with potassium of 7.0 along with acute kidney injury. He has been seen by nephrology and flow floor attendant. He is significantly improved, potassium level is down to 4.3 and creatinine is improved to 1.4. Apparently, he had a similar presentation about 2 weeks ago at [facility]. He is sitting in a chair, feels fine, wants to go home. History was obtained from the patient and also from his sister on the phone. Review of Systems: General: no fevers,chills or rigors HEENT: no new visual disturbance Respiratory: No cough, sputum, hemoptysis or shortness of breath Cardiovascular: No chest pain, syncope Gastrointestinal: No nausea, vomiting or diarrhea Genitourinary: No dysuria or hematuria Musculoskeletal: No new or worsening neck pain or back pain Neurologic: No headaches, seizures Hematologic: No easy bruising or bleeding Endocrine: No night sweats or acute weight loss Skin: negative for rash, jaundice Psychiatric: No suicidal or homicidal ideation Past History Past Medical History: diabetes, hypertension, renal failure Medications and Allergies Allergies Allergy/AdvReac Type Severity Reaction Status Date / Time No Known Allergies Allergy Unverified 11/27/16 09:39 Home Medications Medication Instructions Recorded Confirmed Last Taken Type Aspirin [Aspirin BABY CHEW TAB] 81 mg PO QDAY 01/03/18 04/24/18 01/02/18 History Carvedilol [Coreg] 6.25 mg PO BID 01/03/18 04/24/18 01/02/18 History Cholecalciferol (Vitamin D3) 4,000 unit PO DAILY 01/03/18 04/24/18 1 Day Ago History [Vitamin D3] ~01/02/18 Dextrose [Glucose Gel] 38 gm PO PRN PRN 01/03/18 04/24/18 Unknown History Docusate Sodium [Colace CAP] 100 mg PO BID PRN 01/03/18 04/24/18 01/02/18 History Entecavir 0.5 mg PO DAILY 01/03/18 04/24/18 01/02/18 History Heparin Sodium,Porcine [Heparin 5,000 units SUB-Q Q8HR 01/03/18 04/24/1801/02 History Sodium] Hydralazine HCl 50 mg PO TID 01/03/18 04/24/18 01/02/18 History Multivit-Min/Iron Fum/Folic AC 1 each PO DAILY 01/03/18 04/24/18 1 Day Ago History [Mkdrl-Obuoobe-Naohhzdq Tablet] ~01/02/18 NIFEdipine [Nifedipine ER] 60 mg PO BID 01/03/18 04/24/18 1 Day Ago History ~01/02/18 Pantoprazole [Protonix TAB] 40 mg PO QDAY 01/03/18 04/24/18 1 Day Ago History ~01/02/18 Pregabalin [Lyrica] 75 mg PO Q8HR 01/03/18 04/24/18 1 Day Ago History ~01/02/18 Sodium Bicarbonate 650 mg PO TID 01/03/18 04/24/18 1 Day Ago History ~01/02/18 Sodium Chloride/Aloe Vera [Suring 22 ml NS Q6HR 01/03/18 04/24/18 01/02/18 History Saline Nasal Gel [place]] oxyCODONE /ACETAMINOPHEN [Percocet 1 tab PO Q6HR PRN 01/03/18 04/24/18 Unknown History 5/325 mg] predniSONE [Deltasone] 10 mg PO QDAY 01/03/18 04/24/18 1 Day Ago History ~01/02/18 Basaglar Kwikpen U-100 8 units SUB-Q HS 04/24/18 04/24/18 Unknown History Bisacodyl 10 mg PO DAILY PRN 04/24/18 04/24/18 Unknown History Fluticasone 50 mcg IN BID 04/24/18 04/24/18 Unknown History Furosemide [Lasix TAB] 40 mg PO BID 04/24/18 04/24/18 Unknown History Thiamine 100 mg PO DAILY 04/24/18 04/24/18 Unknown History Vancomycin 1.5 Gram/500 ml-D5w 1.5 gram IV DAILY 04/24/18 04/24/18 Unknown History Vit B6/Me-Thfolate/Me-B12/Ala 100 mg PO DAILY 04/24/18 04/24/18 Unknown History Active Meds: Active Medications Acetaminophen (Tylenol) 650 mg PO Q4H PRN PRN Reason: Pain MILD(1-3)/Fever >100.5/PORTILLO Aspirin (Baby Aspirin) 81 mg PO QDAY [facility] Last Admin: 04/25/18 09:44 Dose: 81 mg Documented by: Bisacodyl (Dulcolax) 10 mg PO DAILY PRN PRN Reason: Constipation Cholecalciferol (Vitamin D3) 4,000 unit PO DAILY [facility] Last Admin: 04/25/18 09:44 Dose: 4,000 unit Documented by: Dextrose (D50w (25gm) Syringe) 50 ml IV PRN PRN PRN Reason: Hypoglycemia Last Admin: 04/24/18 03:47 Dose: 50 ml Documented by: Docusate Sodium (Colace) 100 mg PO BID PRN PRN Reason: Constipation Enoxaparin Sodium (Lovenox) 40 mg SUB-Q QDAY@1000 [facility] Last Admin: 04/25/18 09:44 Dose: 40 mg Documented by: Sodium Chloride (Nacl 0.9% 1000 Ml) 1,000 mls @ 50 mls/hr IV DIRECT [facility] Last Admin: 04/25/18 01:56 Dose: 50 mls/hr Documented by: Insulin Glargine (Lantus) 8 units SUB-Q QHS [facility] Last Admin: 04/24/18 21:50 Dose: 8 units Documented by: Insulin Human Lispro (Humalog) 0 unit SUB-Q ACHS [facility]; Protocol Last Admin: 04/25/18 08:27 Dose: Not Given Documented by: Miscellaneous Medication (Entecavir [Entecavir]) 0.5 mg PO DAILY [facility] Miscellaneous Medication (Non-Formulary) 2 each PO DAILY [facility] Last Admin: 04/25/18 09:46 Dose: 2 each Documented by: Ondansetron HCl (Zofran) 4 mg IV Q8H PRN PRN Reason: Nausea And Vomiting Oxycodone/Acetaminophen (Percocet 5/325) 1 tab PO Q6HR PRN PRN Reason: Pain Pantoprazole Sodium (Protonix) 40 mg PO QDAY [facility] Last Admin: 04/25/18 09:44 Dose: 40 mg Documented by: Prednisone (Deltasone) 10 mg PO QDAY [facility] Last Admin: 04/25/18 09:44 Dose: 10 mg Documented by: Pregabalin (Lyrica) 75 mg PO Q8HR [facility] Last Admin: 04/25/18 05:45 Dose: 75 mg Documented by: Sodium Bicarbonate (Sodium Bicarbonate) 650 mg PO TID [facility] Last Admin: 04/25/18 08:27 Dose: 650 mg Documented by: Sodium Chloride (Sodium Chloride Flush Syringe 10 Ml) 10 ml IV BID [facility] Last Admin: 04/25/18 09:45 Dose: 10 ml Documented by: Sodium Chloride (Sodium Chloride Flush Syringe 10 Ml) 10 ml IV PRN PRN PRN Reason: LINE FLUSH Thiamine HCl (Vitamin B-1) 100 mg PO DAILY [facility] Last Admin: 04/25/18 09:46 Dose: 100 mg Documented by: Physical Examination - Physical Exam Narrative exam: Physical Exam: Constitutional: Alert, cooperative. No acute distress Head, Ears, Nose: Normocephalic, atraumatic. External ears, nose normal Eyes: Conjunctivae/corneas clear. No icterus. No ptosis. Neck: Supple, no meningeal signs Oral: no thrush Cardiovascular: S1, S2 normal. Respiratory: Good air entry, clear to auscultation bilaterally GI: Soft, non-tender; bowel sounds normal. No peritoneal signs Musculoskeletal: b/l heel wounds in dressings. Left upper chest tunneled PICC c/d/i Skin: No rash or abscess Hem/Lymphatic: No palpable cervical or supraclavicular nodes. No lymphangitis Psych: Mood ok. Affect normal Neurological: Awake, alert, oriented. No gross abnormality - Constitutional Vitals: Vital Signs Temp Pulse Resp BP Pulse Ox 98.0 F 62 16 179/71 99 04/25/18 04:00 04/25/18 07:40 04/25/18 07:40 04/25/18 07:40 04/25/18 08:24 Temperature -Last 24 Hours Temperature 98.0 F Temperature 97.7 F Temperature 97.9 F Temperature 97.1 F Results - Labs CBC & Chem 7: 04/24/18 05:03 04/25/18 04:55 Labs: Abnormal lab results 04/24/18 04/24/18 04/24/18 Range/Units 13:11 14:36 16:26 POC ABG pO2 (80-105) Sodium 133 L (137-145) mmol/L Potassium 5.4 H (3.6-5.0) mmol/L Chloride 94.7 L (98-107) mmol/L BUN 70 H (9-20) mg/dL Creatinine 1.6 H (0.8-1.5) mg/dL Glucose 160 H (75-100) mg/dL POC Glucose 180 H 217 H (70-105) AST 102 H (5-40) units/L ALT 63 H (7-56) units/L Alkaline Phosphatase 419 H (35-129) units/L Albumin 3.5 L (3.9-5) g/dL 04/24/18 04/24/18 04/24/18 Range/Units 16:42 20:33 21:39 POC ABG pO2 73 L (80-105) Sodium (137-145) mmol/L Potassium 5.4 H (3.6-5.0) mmol/L Chloride (98-107) mmol/L BUN (9-20) mg/dL Creatinine (0.8-1.5) mg/dL Glucose (75-100) mg/dL POC Glucose 231 H (70-105) AST (5-40) units/L ALT (7-56) units/L Alkaline Phosphatase (35-129) units/L Albumin (3.9-5) g/dL 04/25/18 04/25/18 04/25/18 Range/Units 00:15 04:55 08:29 POC ABG pO2 (80-105) Sodium (137-145) mmol/L Potassium (3.6-5.0) mmol/L Chloride (98-107) mmol/L BUN 55 H (9-20) mg/dL Creatinine (0.8-1.5) mg/dL Glucose 162 H (75-100) mg/dL POC Glucose 248 H 106 H (70-105) AST 72 H (5-40) units/L ALT 59 H (7-56) units/L Alkaline Phosphatase 416 H (35-129) units/L Albumin 3.1 L (3.9-5) g/dL - Imaging and Cardiology Chest x-ray: report reviewed, image reviewed (does not show any pneumonia. Left sided tunneled line.) Assessment and Plan Cultures: None this admission. A/P: 63 year old male with chronic wound ulcers, DM type 2, hypertension, hepatitis B and C, S/P Renal transplant in 11/2016 admitted here with bilateral heel ulcers that were bleedin) MRSA bacteremia, ?presumed endocarditis: Diagnosed recently at [place]. On IV vancomycin. No fever or chills here. TTE here shows normal EF, trace mitral regurgitation, no significant aortic valve disease, moderate pulmonary hypertension. Would continue him on vancomycin for now. Given his recurrent renal issues, IV daptomycin might be a more preferred option. We need to obtain outside records to learn about his tentative end date for abx. His bradycardia was probably related to hyperkalemia of 7.0, however conduction abnormality can also occur due to endocarditis/aortic root abscess hence await cardiology input, consider DOM. 2) Symptomatic bradycardia: now improved. 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 Mental status stable. Continue Cresemba daily. 4) S/P Renal Transplant - off tacrolimus and cellcept. Pt only on predisone due to infectious issues. Nephrology following. 5) B/L chronic non healing heel ulcerations, with chronic calcaneal osteomyelitis: Continue wound care and IV abx. 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 7) Chronic Hepatitis B and C: on Entecavir, non-formulary, resume when able to. Discussed with pharmacist. Hep C status is unknown. Seems to have stable but elevated AST, ALT and Alk phos. 8) JERRICA on admission: resolved. Creatinine down to 1.4 today. Nephrology following. Recs: - continue vancomycin IV based on PK dosing and levels - bbradycardia was probably related to hyperkalemia of 7.0, however conduction abnormality can also occur due to endocarditis/aortic root abscess hence await cardiology input, consider DOM if he hasn't had one done recently - continue Cresemba 372 mg PO daily - resume PO Entecavir for Hep B when available - continue wound care for b/l heel wounds D/W Dr. De La Rosa from ICU and pharmacist Dr. Lamar. MD Jada [facility] C: [phone] O: [phone] F: [phone]
--- NOTE | 2018-04-25 13:17 | Consultation ---
History of Present Illness Consult date: 04/25/18 Requesting physician: ARNALDO HOLBROOK Consult reason: bradycardia History of present illness: The pt is a 63 YO male NHR with a past medical history of HTN, ESRD s/p DRRT on 11/02/2016, DM, hepatitis B and C, bilateral foot osteomyelitis, MRSA bacteremia, presumed endocarditis. He is previously unknown to our practice, he has had multiple hospitalizations at [place]. He presented with complaints of SOB and weakness for a few days prior to arrival. Following arrival to ED, he was noted to be bradycardic with HR in 20s (junctional bradycardia) with JERRICA and hyperkalemia, serum K+ 7. He initially required IV atropine and external pacing. His HR improved to NSR after hyperkalemia was corrected. On evaluation, he remains in NSR and has no current complaints. Echo done 04/13/2018 showed EF 60-65%, grade 2 diastolic dysfunction, trace MR, severe thickening of mitral posterior leaflet, mod mitral annular calcification, mod dilated LA, mildly dilated RA, mild TR, aortic valve thickened, no obvious sequelae of endocarditis identified. DOM for persistent bacteremia was attempted but unsuccessful as pt was unable to tolerate procedure. Past History Past Medical History: diabetes, hypertension, renal failure, other (as per HPI) Medications and Allergies Allergies Allergy/AdvReac Type Severity Reaction Status Date / Time No Known Allergies Allergy Unverified 11/27/16 09:39 Home Medications Medication Instructions Recorded Confirmed Last Taken Type Aspirin [Aspirin BABY CHEW TAB] 81 mg PO QDAY 01/03/18 04/24/18 01/02/18 History Carvedilol [Coreg] 6.25 mg PO BID 01/03/18 04/24/18 01/02/18 History Cholecalciferol (Vitamin D3) 4,000 unit PO DAILY 01/03/18 04/24/18 1 Day Ago History [Vitamin D3] ~01/02/18 Dextrose [Glucose Gel] 38 gm PO PRN PRN 01/03/18 04/24/18 Unknown History Docusate Sodium [Colace CAP] 100 mg PO BID PRN 01/03/18 04/24/18 01/02/18 History Entecavir 0.5 mg PO DAILY 01/03/18 04/24/18 01/02/18 History Heparin Sodium,Porcine [Heparin 5,000 units SUB-Q Q8HR 01/03/18 04/24/18 01/02/18 History Sodium] Hydralazine HCl 50 mg PO TID 01/03/18 04/24/18 01/02/18 History Multivit-Min/Iron Fum/Folic AC 1 each PO DAILY 01/03/18 04/24/18 1 Day Ago History [Iuvjr-Cdbbkvx-Czaslbkk Tablet] ~01/02/18 NIFEdipine [Nifedipine ER] 60 mg PO BID 01/03/18 04/24/18 1 Day Ago History ~01/02/18 Pantoprazole [Protonix TAB] 40 mg PO QDAY 01/03/18 04/24/18 1 Day Ago History ~01/02/18 Pregabalin [Lyrica] 75 mg PO Q8HR 01/03/18 04/24/18 1 Day Ago History ~01/02/18 Sodium Bicarbonate 650 mg PO TID 01/03/18 04/24/18 1 Day Ago History ~01/02/18 Sodium Chloride/Aloe Vera [[place] 22 ml NS Q6HR 01/03/18 04/24/18 01/02/18 History Saline Nasal Gel [place]] oxyCODONE /ACETAMINOPHEN [Percocet 1 tab PO Q6HR PRN 01/03/18 04/24/18 Unknown History 5/325 mg] predniSONE [Deltasone] 10 mg PO QDAY 01/03/18 04/24/18 1 Day Ago History ~01/02/18 Basaglar Kwikpen U-100 8 units SUB-Q HS 04/24/18 04/24/18 Unknown History Bisacodyl 10 mg PO DAILY PRN 04/24/18 04/24/18 Unknown History Fluticasone 50 mcg IN BID 04/24/18 04/24/18 Unknown History Furosemide [Lasix TAB] 40 mg PO BID 04/24/18 04/24/18 Unknown History Thiamine 100 mg PO DAILY 04/24/18 04/24/18 Unknown History Vancomycin 1.5 Gram/500 ml-D5w 1.5 gram IV DAILY 04/24/18 04/24/18 Unknown History Vit B6/Me-Thfolate/Me-B12/Ala 100 mg PO DAILY 04/24/18 04/24/18 Unknown History Active Meds: Active Medications Acetaminophen (Tylenol) 650 mg PO Q4H PRN PRN Reason: Pain MILD(1-3)/Fever >100.5/PORTILLO Aspirin (Baby Aspirin) 81 mg PO QDAY [facility] Last Admin: 04/25/18 09:44 Dose: 81 mg Documented by: Bisacodyl (Dulcolax) 10 mg PO DAILY PRN PRN Reason: Constipation Cholecalciferol (Vitamin D3) 4,000 unit PO DAILY [facility] Last Admin: 04/25/18 09:44 Dose: 4,000 unit Documented by: Dextrose (D50w (25gm) Syringe) 50 ml IV PRN PRN PRN Reason: Hypoglycemia Last Admin: 04/24/18 03:47 Dose: 50 ml Documented by: Docusate Sodium (Colace) 100 mg PO BID PRN PRN Reason: Constipation Enoxaparin Sodium (Lovenox) 40 mg SUB-Q QDAY@1000 [facility] Last Admin: 04/25/18 09:44 Dose: 40 mg Documented by: Sodium Chloride (Nacl 0.9% 1000 Ml) 1,000 mls @ 50 mls/hr IV DIRECT [facility] Last Admin: 04/25/18 01:56 Dose: 50 mls/hr Documented by: Insulin Glargine (Lantus) 8 units SUB-Q QHS [facility] Last Admin: 04/24/18 21:50 Dose: 8 units Documented by: Insulin Human Lispro (Humalog) 0 unit SUB-Q ACHS [facility]; Protocol Last Admin: 04/25/18 08:27 Dose: Not Given Documented by: Miscellaneous Medication (Entecavir [Entecavir]) 0.5 mg PO DAILY [facility] Miscellaneous Medication (Non-Formulary) 2 each PO DAILY [facility] Last Admin: 04/25/18 09:46 Dose: 2 each Documented by: Ondansetron HCl (Zofran) 4 mg IV Q8H PRN PRN Reason: Nausea And Vomiting Oxycodone/Acetaminophen (Percocet 5/325) 1 tab PO Q6HR PRN PRN Reason: Pain Pantoprazole Sodium (Protonix) 40 mg PO QDAY [facility] Last Admin: 04/25/18 09:44 Dose: 40 mg Documented by: Prednisone (Deltasone) 10 mg PO QDAY [facility] Last Admin: 04/25/18 09:44 Dose: 10 mg Documented by: Pregabalin (Lyrica) 75 mg PO Q8HR [facility] Last Admin: 04/25/18 05:45 Dose: 75 mg Documented by: Sodium Bicarbonate (Sodium Bicarbonate) 650 mg PO TID [facility] Last Admin: 04/25/18 08:27 Dose: 650 mg Documented by: Sodium Chloride (Sodium Chloride Flush Syringe 10 Ml) 10 ml IV BID [facility] Last Admin: 04/25/18 09:45 Dose: 10 ml Documented by: Sodium Chloride (Sodium Chloride Flush Syringe 10 Ml) 10 ml IV PRN PRN PRN Reason: LINE FLUSH Thiamine HCl (Vitamin B-1) 100 mg PO DAILY [facility] Last Admin: 04/25/18 09:46 Dose: 100 mg Documented by: Review of Systems Constitutional: weakness Ears, nose, mouth and throat: no ear pain, no nose pain, no sinus pressure, no sinus pain Cardiovascular: lightheadedness, shortness of breath, dyspnea on exertion, no chest pain, no orthopnea, no palpitations, no rapid/irregular heart beat, no edema, no syncope, no leg edema Respiratory: shortness of breath, dyspnea on exertion, no cough, no congestion, no wheezing, no pain on inspiration Gastrointestinal: no abdominal pain, no nausea, no vomiting, no diarrhea, no constipation, no change in bowel habits Genitourinary Male: no dysuria, no hematuria, no flank pain, no discharge, no urinary frequency, no urinary hesitancy Musculoskeletal: no neck stiffness, no neck pain, no shooting arm pain, no arm numbness/tingling, no low back pain, no shooting leg pain, no leg numbness/tingling Integumentary: no rash, no pruritis, no redness, no sores, no wounds Neurological: no head injury, no paralysis, no weakness, no parathesias, no numbness, no tingling, no seizures, no syncope Psychiatric: no anxiety Endocrine: no cold intolerance, no heat intolerance Hematologic/Lymphatic: no easy bruising, no easy bleeding Allergic/Immunologic: no urticaria, no wheezing Physical Examination Vital Signs Pulse Resp BP Pulse Ox 57 L 15 114/58 94 04/24/18 00:24 04/24/18 00:24 04/24/18 00:24 04/24/18 00:24 General appearance: no acute distress HEENT: Positive: PERRL, Normocephaly, Mucus Membranes Moist Neck: Positive: neck supple, trachea midline Cardiac: Positive: Reg Rate and Rhythm, S1/S2 Lungs: Positive: clear to auscultation Neuro: Positive: Grossly Intact Abdomen: Positive: Soft. Negative: Tender Skin: Negative: Rash Musculoskeletal: No Pain Extremities: Absent: edema Results 04/24/18 05:03 04/25/18 04:55 Cardiac Enzymes 04/24/18 04/25/18 Range/Units 13:11 04:55 AST 102 H 72 H (5-40) units/L Comprehensive Metabolic Panel 04/24/18 04/24/18 04/25/18 Range/Units 13:11 20:33 04:55 Sodium 133 L 144 D (137-145) mmol/L Potassium 5.4 H 5.4 H 4.3 D (3.6-5.0) mmol/L Chloride 94.7 L 105.3 (98-107) mmol/L Carbon Dioxide 23 26 (22-30) mmol/L BUN 70 H 55 H (9-20) mg/dL Creatinine 1.6 H 1.4 (0.8-1.5) mg/dL Glucose 160 H 162 H (75-100) mg/dL Calcium 9.6 8.6 (8.4-10.2) mg/dL AST 102 H 72 H (5-40) units/L ALT 63 H 59 H (7-56) units/L Alkaline Phosphatase 419 H 416 H (35-129) units/L Total Protein 6.7 6.4 (6.3-8.2) g/dL Albumin 3.5 L 3.1 L (3.9-5) g/dL - Imaging and Cardiology Echo: report reviewed (04/13/2018 showed EF 60-65%, grade 2 diastolic dysfunction, trace MR, severe thickening of mitral posterior leaflet, mod mitral annular calcification, mod dilated LA, mildly dilated RA, mild TR, aortic valve thickened, no obvious sequelae of endocarditis identified. ) EKG: report reviewed, image reviewed EKG interpretations - Telemetry EKG Rhythm: Sinus Rhythm Assessment and Plan Assessment: Junctional bradycardia --> NSR; likely 2/2 hyperkalemia Hyperkalemia - improved JERRICA - improved HTN ESRD s/p DRRT on 11/02/2016 DM H/o hepatitis B and C H/o bilateral foot osteomyelitis H/o MRSA bacteremia H/o presumed endocarditis Plan: 04/13/2018 showed EF 60-65%, grade 2 diastolic dysfunction, trace MR, severe thickening of mitral posterior leaflet, mod mitral annular calcification, mod dilated LA, mildly dilated RA, mild TR, aortic valve thickened, no obvious sequelae of endocarditis identified. DOM for persistent bacteremia was attempted but unsuccessful as pt was unable to tolerate procedure. Currently stable cardiac status. Cont home cardiac regimen. Pt may tx out of CCU to telemetry from cardiology standpoint. Follow ID and nephrology recs. The patient has been seen in conjunction with Dr. Grady Weaver who agrees with the assessment and plan of care.
--- NOTE | 2018-04-25 16:24 | Progress Note ---
Assessment and Plan Assessment and plan: Patient is a 63-year-old with a history of chronic kidney disease with hx of renal transplant, hepatitis B hepatitis C currently being treated for endocarditis presents with shortness of breath sinus bradycardia into the 20s. Patient was brought in placed on atropine and paced. At that time seemed to be doing fairly well. Heart rate increased to the 70s after one setback of bradycardia in the 40s requiring an additional atropine. Patient also was found to have acute failure with a potassium of 7 and a BUN/creatinine of 73 and 1.9. It was thought that hyperkalemia most likely etiology of bradycardia. Initial repeat chemistries showed potassium of 6 after only wanting Kayexalate. An additional one has been ordered and in fact he is receiving it during this examination. Cardiology has been consulted for bradycardia as well as renal for acute on chronic kidney disease. Patient also has a past history of diabetes which appears to be fairly well controlled we'll resume current. Symptomatic bradycardia secondary to hyperkalemia, beta al Junctional Bradycardia Acute renal failure on CKD stage 4 B/L foot osteomyelitis NRSA bactermia Hyperkalemia ESRD s/p DRRT on 11/02/2016 Endocarditis-presumed HTN Diabetes Pressure ulcers Hepatitis B, C Plan Supportive care Continue external pacing Renal function Improved Awaiting to see if DOM will be reattempted Renal function improved Discussed with the sister who is in [place]. Echo reviewed -04/13/2018 showed EF 60-65%, grade 2 diastolic dysfunction, trace MR, severe thickening of mitral posterior leaflet, mod mitral annular calcific ation, mod dilated LA, mildly dilated RA, mild TR, aortic valve thickened, no obvious sequelae of endocarditis identified Start IV fluid, hold nephrotoxic agents, beta al Give Kayexalate, bicarbonate for hyperkalemia, checkUS kidneys, BMP later Continue vancomycin, pharmacy to [place] dose Consult renal,case discussed with him, check fingersticks initiated insulin sliding-scale DVT prophylaxis History Interval history: Patient seen and examined today, clinically shows some improvement. No nausea, vomiting, shortness of breath reported. Hospitalist Physical - Physical exam Narrative exam: General appearance: Present: no acute distress - EENT Eyes: Present: PERRL, EOM intact, scleral icterus ENT: hearing intact, poor dentition, no oropharyngeal erythema - Neck Neck: Present: supple, normal ROM - Respiratory Respiratory effort: normal Respiratory: bilateral: CTA - Cardiovascular Heart rate: 56 - Extremities Extremities: no ischemia, pulses intact, pulses symmetrical Extremity abnormal: edema, other (severe onychomycosis and decubitus ulcers heals bilaterally and sacrum local wound care. with dressing in place) Peripheral Pulses: abnormal - Abdominal General gastrointestinal: soft, non-tender, non-distended, normal bowel sounds - Integumentary Integumentary: Present: clear, warm, dry - Psychiatric Psychiatric: appropriate mood/affect, intact judgment & insight - Neurologic Neurologic: CNII-XII intact, focal deficits - Constitutional Vitals: Temp Pulse Resp BP Pulse Ox 98 F 74 18 149/58 99 04/25/18 12:00 04/25/18 13:10 04/25/18 13:10 04/25/18 13:10 04/25/18 13:10 General appearance: Present: no acute distress Results - Labs CBC & Chem 7: 04/24/18 05:03 04/25/18 04:55 Labs: Laboratory Last Values WBC 9.1 K/mm3 (4.5-11.0) 04/24/18 05:03 RBC 3.36 M/mm3 (3.65-5.03) L 04/24/18 05:03 Hgb 10.5 gm/dl (11.8-15.2) L 04/24/18 05:03 Hct 32.7 % (35.5-45.6) L 04/24/18 05:03 MCV 97 fl (84-94) H 04/24/18 05:03 MCH 31 pg (28-32) 04/24/18 05:03 MCHC 32 % (32-34) 04/24/18 05:03 RDW 19.4 % (13.2-15.2) H 04/24/18 05:03 Plt Count 229 K/mm3 (140-440) 04/24/18 05:03 [place] % (Auto) Nutritionists 04/24/18 05:03 Add Manual Diff Complete 04/24/18 05:03 Total Counted 100 04/24/18 05:03 Seg Neuts % (Manual) 71.0 % (40.0-70.0) H 04/24/18 05:03 Band Neutrophils % 4.0 % 04/24/18 05:03 Lymphocytes % (Manual) 7.0 % (13.4-35.0) L 04/24/18 05:03 Reactive Lymphs % (Man) 0 % 04/24/18 05:03 Monocytes % (Manual) 15.0 % (0.0-7.3) H 04/24/18 05:03 Eosinophils % (Manual) 0 % (0.0-4.3) 04/24/18 05:03 Basophils % (Manual) 0 % (0.0-1.8) 04/24/18 05:03 Metamyelocytes % 1.0 % 04/24/18 05:03 Myelocytes % 2.0 % 04/24/18 05:03 Promyelocytes % 0 % 04/24/18 05:03 Blast Cells % 0 % 04/24/18 05:03 Nucleated RBC % Not Reportable 04/24/18 05:03 Seg Neutrophils # Man 6.5 K/mm3 (1.8-7.7) 04/24/18 05:03 Band Neutrophils # 0.4 K/mm3 04/24/18 05:03 Lymphocytes # (Manual) 0.6 K/mm3 (1.2-5.4) L 04/24/18 05:03 Abs React Lymphs (Man) 0.0 K/mm3 04/24/18 05:03 Monocytes # (Manual) 1.4 K/mm3 (0.0-0.8) H 04/24/18 05:03 Eosinophils # (Manual) 0.0 K/mm3 (0.0-0.4) 04/24/18 05:03 Basophils # (Manual) 0.0 K/mm3 (0.0-0.1) 04/24/18 05:03 Metamyelocytes # 0.1 K/mm3 04/24/18 05:03 Myelocytes # 0.2 K/mm3 04/24/18 05:03 Promyelocytes # 0.0 K/mm3 04/24/18 05:03 Blast Cells # 0.0 K/mm3 04/24/18 05:03 WBC Morphology Not Reportable 04/24/18 05:03 Hypersegmented Neuts Not Reportable 04/24/18 05:03 Hyposegmented Neuts Not Reportable 04/24/18 05:03 Hypogranular Neuts Not Reportable 04/24/18 05:03 Smudge Cells Not Reportable 04/24/18 05:03 Toxic Granulation Not Reportable 04/24/18 05:03 Toxic Vacuolation Not Reportable 04/24/18 05:03 Dohle Bodies Not Reportable 04/24/18 05:03 Pelger-Huet Anomaly Not Reportable 04/24/18 05:03 Sherly Rods Not Reportable 04/24/18 05:03 Platelet Estimate Consistent w auto 04/24/18 05:03 Clumped Platelets Not Reportable 04/24/18 05:03 Plt Clumps, EDTA Not Reportable 04/24/18 05:03 Large Platelets Not Reportable 04/24/18 05:03 Giant Platelets Not Reportable 04/24/18 05:03 Platelet Satelliting Not Reportable 04/24/18 05:03 Plt Morphology Comment Not Reportable 04/24/18 05:03 RBC Morphology Not Reportable 04/24/18 05:03 Dimorphic RBCs Not Reportable 04/24/18 05:03 Polychromasia Not Reportable 04/24/18 05:03 Hypochromasia Not Reportable 04/24/18 05:03 Poikilocytosis Not Reportable 04/24/18 05:03 Anisocytosis 1+ 04/24/18 05:03 Microcytosis Few 04/24/18 05:03 Macrocytosis Not Reportable 04/24/18 05:03 Spherocytes Not Reportable 04/24/18 05:03 Pappenheimer Bodies Not Reportable 04/24/18 05:03 Sickle Cells Not Reportable 04/24/18 05:03 Target Cells Not Reportable 04/24/18 05:03 Tear Drop Cells Not Reportable 04/24/18 05:03 Ovalocytes Not Reportable 04/24/18 05:03 Helmet Cells Not Reportable 04/24/18 05:03 Hamilton-Talent Bodies Not Reportable 04/24/18 05:03 Ragland Rings Not Reportable 04/24/18 05:03 Loan Cells Not Reportable 04/24/18 05:03 Bite Cells Not Reportable 04/24/18 05:03 Crenated Cell Not Reportable 04/24/18 05:03 Elliptocytes Not Reportable 04/24/18 05:03 Acanthocytes (Spur) Not Reportable 04/24/18 05:03 Rouleaux Not Reportable 04/24/18 05:03 Hemoglobin C Crystals Not Reportable 04/24/18 05:03 Schistocytes Not Reportable 04/24/18 05:03 Malaria parasites Not Reportable 04/24/18 05:03 Owen Bodies Not Reportable 04/24/18 05:03 Hem Pathologist Commnt No 04/24/18 05:03 POC ABG pH 7.384 (7.35-7.45) 04/24/18 16:42 POC ABG pCO2 41.1 (35-45) 04/24/18 16:42 POC ABG pO2 73 (80-105) L 04/24/18 16:42 POC ABG HCO3 24.6 04/24/18 16:42 POC ABG Total CO2 26 04/24/18 16:42 POC ABG O2 Sat 94 04/24/18 16:42 POC ABG Base Excess 0 04/24/18 16:42 FiO2 32 % 04/24/18 16:42 Sodium 144 mmol/L (137-145) D 04/25/18 04:55 Potassium 4.3 mmol/L (3.6-5.0) D 04/25/18 04:55 Chloride 105.3 mmol/L (98-107) 04/25/18 04:55 Carbon Dioxide 26 mmol/L (22-30) 04/25/18 04:55 Anion Gap 17 mmol/L 04/25/18 04:55 BUN 55 mg/dL (9-20) H 04/25/18 04:55 Creatinine 1.4 mg/dL (0.8-1.5) 04/25/18 04:55 Estimated GFR 51 ml/min 04/25/18 04:55 BUN/Creatinine Ratio 39 % 04/25/18 04:55 Glucose 162 mg/dL (75-100) H 04/25/18 04:55 POC Glucose 106 (70-105) H 04/25/18 08:29 Calcium 8.6 mg/dL (8.4-10.2) 04/25/18 04:55 Phosphorus 2.70 mg/dL (2.5-4.5) 04/25/18 04:55 Total Bilirubin 0.30 mg/dL (0.1-1.2) 04/25/18 04:55 AST 72 units/L (5-40) H 04/25/18 04:55 ALT 59 units/L (7-56) H 04/25/18 04:55 Alkaline Phosphatase 416 units/L (35-129) H 04/25/18 04:55 Total Creatine Kinase 21 units/L (55-170) L 04/24/18 11:15 CK-MB (CK-2) 3.7 ng/mL (0.0-4.0) 04/24/18 11:15 CK-MB (CK-2) Rel Index 17.6 (0-4) H 04/24/18 11:15 Troponin T 0.103 ng/mL (0.00-0.029) H* 04/24/18 11:15 Total Protein 6.4 g/dL (6.3-8.2) 04/25/18 04:55 Albumin 3.1 g/dL (3.9-5) L 04/25/18 04:55 Albumin/Globulin Ratio 0.9 % 04/25/18 04:55 Triglycerides 233 mg/dL (2-149) H 04/24/18 01:24 Cholesterol 181 mg/dL (50-199) 04/24/18 01:24 LDL Cholesterol Direct 121 mg/dL (50-130) 04/24/18 01:24 HDL Cholesterol 30 mg/dL (40-59) L 04/24/18 01:24 Cholesterol/HDL Ratio 6.03 % 04/24/18 01:24 Urine Color Yellow (Yellow) 04/24/18 09:00 Urine Turbidity Clear (Clear) 04/24/18 09:00 Urine pH 5.0 (5.0-7.0) 04/24/18 09:00 Ur Specific [place] 1.012 (1.003-1.030) 04/24/18 09:00 Urine Protein 30 mg/dl mg/dL (Negative) 04/24/18 09:00 Urine Glucose (UA) 50 mg/dL (Negative) 04/24/18 09:00 Urine Ketones Neg mg/dL (Negative) 04/24/18 09:00 Urine Blood Neg (Negative) 04/24/18 09:00 Urine Nitrite Neg (Negative) 04/24/18 09:00 Urine Bilirubin Neg (Negative) 04/24/18 09:00 Urine Urobilinogen < 2.0 mg/dL (<2.0) 04/24/18 09:00 Ur Leukocyte Esterase Neg (Negative) 04/24/18 09:00 Urine WBC (Auto) 2.0 /HPF (0.0-6.0) 04/24/18 09:00 Urine RBC (Auto) 2.0 /HPF (0.0-6.0) 04/24/18 09:00 Hyaline Casts 1 /LPF 04/24/18 09:00 Urine Mucus Few /HPF 04/24/18 09:00 Random Vancomycin 25.7 ug/mL (0-40.0) 04/24/18 05:03
[2018-04-25] MEDS: LANTUS SUB-Q SCH (21:27)
[2018-04-26] MEDS: APRESOLINE IV PRN ×2 (00:10→05:35)
[2018-04-26] MEDS: LYRICA PO SCH (05:38)
[2018-04-26 06:55] LABS: BUN/Creatinine Ratio 38; Blood Urea Nitrogen 38 mg/dL (9-20); Calcium 8.7 mg/dL (8.4-10.2); Hemolysis Index 23
[2018-04-26 08:38] VITALS: BP 167/68
--- NOTE | 2018-04-26 09:28 | Progress Note ---
Assessment and Plan 1. Acute kidney injury: Suspect vasomotor / hemodynamic JERRICA in the setting of volume depletion +/- sepsis. Renal function has improved. Encouraged PO fluids. Monitor renal function. 2. FEN: Hyperkalemia, improved with treatment. Monitor lytes. 3. Kidney transplantation status: DD transplant on 11/02/16 at [facility]. Continue Prednisone. 4. 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 5. Bilateral heel osteomyelitis. 6. Invasive fungal infection with pulmonary nodules, sinusitis and skull base involvement: Continue Isavuconazonium. 7. Hepatitis C (genotype 3). 8. Hep B: On Entecavir. Subjective Date of service: 04/26/18 Principal diagnosis: Symptomatic bradycardia; JERRICA on CKD; Hyperkalemia; Endocarditis; DM type II Interval history: Patient is feeling better. Objective - Vital Signs Vital signs: Vital Signs - 12hr 04/25/18 04/25/18 04/25/18 22:00 22:12 23:36 Temperature 97.5 F L Pulse Rate 60 Respiratory 16 Rate Blood Pressure 170/70 O2 Sat by Pulse 98 98 96 Oximetry 04/26/18 04/26/18 04/26/18 00:10 05:05 05:35 Temperature 98.2 F Pulse Rate 82 58 L 58 L Respiratory 17 Rate Blood Pressure 170/98 172/71 172/71 O2 Sat by Pulse 99 Oximetry 04/26/18 08:35 Temperature 97.8 F Pulse Rate 64 Respiratory 18 Rate Blood Pressure 167/68 O2 Sat by Pulse 97 Oximetry - General Appearance General appearance: well-developed, well-nourished, appears stated age, other (not in distress) EENT: ATNC, PERRL, mucous membranes moist, hearing intact, vision intact Neck: supple Respiratory: Present: Clear to Ascultation Cardiology: regular, S1S2, no murmurs Gastrointestinal: normoactive bowel sounds, no tenderness, no distended Integumentary: other (bilateral feet dressing noted) Neurologic: no focal deficit, no asterixis, alert and oriented x3 Musculoskeletal: other (no edema) - Lab 04/24/18 05:03 04/26/18 05:52 Most recent lab results Calcium 8.7 mg/dL (8.4-10.2) 04/26/18 05:52 Phosphorus 2.70 mg/dL (2.5-4.5) 04/25/18 04:55 Magnesium 1.90 mg/dL (1.7-2.3) 04/26/18 05:52 Medications & Allergies - Medications Allergies/Adverse Reactions: Allergies No Known Allergies Allergy (Unverified 11/27/16 09:39) Home Medications: Home Medications Medication Instructions Recorded Confirmed Last Taken Type Aspirin [Aspirin BABY CHEW TAB] 81 mg PO QDAY 01/03/18 04/24/18 01/02/18 History Cholecalciferol (Vitamin D3) 4,000 unit PO DAILY 01/03/18 04/24/18 1 Day Ago History [Vitamin D3] ~01/02/18 Dextrose [Glucose Gel] 38 gm PO PRN PRN 01/03/18 04/24/18 Unknown History Docusate Sodium [Colace CAP] 100 mg PO BID PRN 01/03/18 04/24/18 01/02/18 History Entecavir 0.5 mg PO DAILY 01/03/18 04/24/18 01/02/18 History Heparin Sodium,Porcine [Heparin 5,000 units SUB-Q Q8HR 01/03/18 04/24/18 01/02/18 History Sodium] Hydralazine HCl 50 mg PO TID 01/03/18 04/24/18 01/02/18 History Multivit-Min/Iron Fum/Folic AC 1 each PO DAILY 01/03/18 04/24/18 1 Day Ago History [Dumcs-Fonsyid-Fmjbqchb Tablet] ~01/02/18 NIFEdipine [Nifedipine ER] 60 mg PO BID 01/03/18 04/24/18 1 Day Ago History ~01/02/18 Pantoprazole [Protonix TAB] 40 mg PO QDAY 01/03/18 04/24/18 1 Day Ago History ~01/02/18 Pregabalin [Lyrica] 75 mg PO Q8HR 01/03/18 04/24/18 1 Day Ago History ~01/02/18 Sodium Bicarbonate 650 mg PO TID 01/03/18 04/24/18 1 Day Ago History ~01/02/18 Sodium Chloride/Aloe Vera [Ephrata 22 ml NS Q6HR 01/03/18 04/24/18 01/02/18 History Saline Nasal Gel [place]] oxyCODONE /ACETAMINOPHEN [Percocet 1 tab PO Q6HR PRN 01/03/18 04/24/18 Unknown History 5/325 mg] predniSONE [Deltasone] 10 mg PO QDAY 01/03/18 04/24/18 1 Day Ago History ~01/02/18 Gladis Mckeon U-100 8 units SUB-Q HS 04/24/18 04/24/18 Unknown History Bisacodyl 10 mg PO DAILY PRN 04/24/18 04/24/18 Unknown History Fluticasone 50 mcg IN BID 04/24/18 04/24/18 Unknown History Thiamine 100 mg PO DAILY 04/24/18 04/24/18 Unknown History Vancomycin 1.5 Gram/500 ml-D5w 1.5 gram IV DAILY 04/24/18 04/24/18 Unknown History Vit B6/Me-Thfolate/Me-B12/Ala 100 mg PO DAILY 04/24/18 04/24/18 Unknown History Furosemide [Lasix TAB] 40 mg PO DAILY #1 04/26/18 04/24/18 Unknown Rx Active Medications: Generic Name Dose Route Start Last Admin Trade Name Freq PRN Reason Stop Dose Admin Acetaminophen 650 mg 04/24/18 02:33 Tylenol PO Q4H PRN Pain MILD(1-3)/Fever >100.5/PORTILLO Aspirin 81 mg 04/24/18 10:00 04/25/18 09:44 Baby Aspirin PO 81 mg QDAY TORREY Administration Bisacodyl 10 mg 04/24/18 12:48 Dulcolax PO DAILY PRN Constipation Cholecalciferol 4,000 unit 04/24/18 10:00 04/25/18 09:44 Vitamin D3 PO 4,000 unit DAILY TORREY Administration Dextrose 50 ml 04/24/18 03:17 04/24/18 03:47 D50w (25gm) Syringe IV 50 ml PRN PRN Administration Hypoglycemia Docusate Sodium 100 mg 04/24/18 04:01 Colace PO BID PRN Constipation Enoxaparin Sodium 40 mg 04/25/18 10:00 04/25/18 09:44 Lovenox SUB-Q 40 mg QDAY@1000 TORREY Administration Hydralazine HCl 10 mg 04/25/18 17:55 04/26/18 05:35 Apresoline IV 10 mg Q6HR PRN Administration Hypertension Sodium Chloride 1,000 mls @ 50 mls/hr 04/24/18 04:00 02/11/19 01:56 Nacl 0.9% 1000 Ml IV 50 mls/hr DIRECT TORREY Administration Insulin Glargine 8 units 04/24/18 22:00 04/25/18 21:27 Lantus SUB-Q 8 units QHS TORREY Administration Insulin Human Lispro 0 unit 04/24/18 07:30 04/25/18 21:31 Humalog SUB-Q 3 unit ACHS TORREY Administration Protocol Miscellaneous Medication 0.5 mg 04/26/18 10:00 Entecavir [Entecavir] PO DAILY [facility] Miscellaneous Medication 2 each 04/25/18 10:00 04/25/18 09:46 Non-Formulary PO 2 each DAILY TORREY Administration Ondansetron HCl 4 mg 04/24/18 02:33 Zofran IV Q8H PRN Nausea And Vomiting Oxycodone/Acetaminophen 1 tab 04/24/18 12:48 Percocet 5/325 PO Q6HR PRN Pain Pantoprazole Sodium 40 mg 04/24/18 10:00 04/25/18 09:44 Protonix PO 40 mg QDAY TORREY Administration Prednisone 10 mg 04/24/18 10:00 04/25/18 09:44 Deltasone PO 10 mg QDAY TORREY Administration Pregabalin 75 mg 04/24/18 06:00 04/26/18 05:38 Lyrica PO 75 mg Q8HR TORREY Administration Sodium Bicarbonate 650 mg 04/24/18 08:00 04/25/18 21:27 Sodium Bicarbonate PO 650 mg TID TORREY Administration Sodium Chloride 10 ml 04/24/18 10:00 04/25/18 21:29 Sodium Chloride Flush Syringe 10 Ml IV 10 ml BID TORREY Administration Sodium Chloride 10 ml 04/24/18 02:33 Sodium Chloride Flush Syringe 10 Ml IV PRN PRN LINE FLUSH Thiamine HCl 100 mg 04/24/18 10:00 04/25/18 09:46 Vitamin B-1 PO 100 mg DAILY TORREY Administration
--- NOTE | 2018-04-26 09:44 | Discharge Summary ---
Providers - Providers Date of Admission: 04/24/18 03:27 Attending physician: DANICA SANTIAGO MD 04/24/18 03:51 Consult to Physician [CONS] Routine Comment: md vázquez Consulting Provider: LEATHA KAUR Physician Instructions: Reason For Exam: arf 04/24/18 11:37 Consult to Physician [CONS] Urgent Comment: Consulting Provider: AIDEN YU Physician Instructions: Reason For Exam: critical care management 04/24/18 13:50 Consult to Cardiology [CONS] Routine Consulting Provider: KIANA HOWARD Reason For Exam: symptomatic bradycardia 04/24/18 20:16 Consult to Physician [CONS] Routine Comment: Consulting Provider: ALEJANDRO PAEZ Physician Instructions: Reason For Exam: Bilateral heel osteomyelitis, Endocarditis 04/25/18 19:20 Consult to Wound/ET Nurse [CONS] Routine Reason For Exam: wound eval Primary care physician: CHRISTIANO SABILLON Hospitalization Reason for admission: OSTEOMYLYTIES Condition: Stable Hospital course: Patient is a 63-year-old with a history of chronic kidney disease with hx of renal transplant, hepatitis B hepatitis C currently being treated for endocarditis presents with shortness of breath sinus bradycardia into the 20s. Patient was brought in placed on atropine and paced. At that time seemed to be doing fairly well. Heart rate increased to the 70s after one setback of bradycardia in the 40s requiring an additional atropine. Patient also was found to have acute failure with a potassium of 7 and a BUN/creatinine of 73 and 1.9. It was thought that hyperkalemia most likely etiology of bradycardia. Initial repeat chemistries showed potassium of 6 after only wanting Kayexalate. An additional one has been ordered and in fact he is receiving it during this exa mination. Cardiology has been consulted for bradycardia as well as renal for acute on chronic kidney disease. Patient also has a past history of diabetes which appears to be fairly well controlled we'll resume current. pER CARDIOLOGY 04/13/2018 showed EF 60-65%, grade 2 diastolic dysfunction, trace MR, severe thickening of mitral posterior leaflet, mod mitral annular calcification, mod dilated LA, mildly dilated RA, mild TR, aortic valve thickened, no obvious sequelae of endocarditis identified. DOM for persistent bacteremia was attempted but unsuccessful as pt was unable to tolerate procedure. Currently stable cardiac status. Cont home cardiac regimen. Follow ID and nephrology recs. Pt may discharge home from cardiology standpoint. Recommend follow up in our office with Dr. Grady Weaver within 1-2 weeks of hospital discharge ([phone]) OR with [place] cardiology. Pt verbalizes understanding. Per id - continue vancomycin IV based on PK dosing and levels - bradycardia was probably related to hyperkalemia of 7.0, however conduction abnormality can also occur due to endocarditis/aortic root abscess hence await cardiology input, - continue Cresemba 372 mg PO daily - resume PO Entecavir for Hep B when available - continue wound care for b/l heel wounds Patient was given recommendations based on above and also outpatient ID follow up. Further discussion about DOM was defered to cardiology who stated no need at this time. BB was discontinued Discharge diagnosis Symptomatic bradycardia secondary to hyperkalemia, beta al Junctional Bradycardia Acute renal failure on CKD stage 4 B/L foot osteomyelitis NRSA bactermia Hyperkalemia ESRD s/p DRRT on 11/02/2016 Hx of Endocarditis-presumed from outside hospital no clear documentation HTN Diabetes Pressure ulcers Hepatitis B, C Disposition: DC/TX-03 [facility] Time spent for discharge: 35 mins Core Measure Documentation - Palliative Care Palliative Care/ Comfort Measures: Not Applicable - Core Measures Any of the following diagnoses?: none Exam - Physical Exam Narrative exam: General appearance: Present: no acute distress - EENT Eyes: Present: PERRL, EOM intact, scleral icterus ENT: hearing intact, poor dentition, no oropharyngeal erythema - Neck Neck: Present: supple, normal ROM - Respiratory Respiratory effort: normal Respiratory: bilateral: CTA - Cardiovascular Heart rate: 56 - Extremities Extremities: no ischemia, pulses intact, pulses symmetrical Extremity abnormal: edema, other (severe onychomycosis and decubitus ulcers heals bilaterally and sacrum local wound care. with dressing in place) Peripheral Pulses: abnormal - Abdominal General gastrointestinal: soft, non-tender, non-distended, normal bowel sounds - Integumentary Integumentary: Present: clear, warm, dry - Psychiatric Psychiatric: appropriate mood/affect, intact judgment & insight - Neurologic Neurologic: CNII-XII intact, focal deficits - Constitutional Vitals: Temp Pulse Resp BP Pulse Ox 97.8 F 64 18 167/68 97 04/26/18 08:35 04/26/18 08:35 04/26/18 08:35 04/26/18 08:35 04/26/18 08:35 Plan Activity: advance as tolerated, fall precautions Diet: renal Additional Instructions: follow with [place] cath laboratory technician and greenhouse staff also primary ID doctor in 1 week Follow up with: CHRISTIANO SABILLON MD [Primary Care Provider] - 3-5 Days
[2018-04-26] MEDS ORDERED: NON-FORMULARY (Entecavir [Entecavir] 0.5 MG) PO SCH (10:00)
--- NOTE | 2018-04-26 10:30 | Progress Note ---
Assessment and Plan Cultures: None this admission. A/P: 63 year old male with chronic wound ulcers, DM type 2, hypertension, hepatitis B and C, S/P Renal transplant in 11/2016 admitted here with bilateral heel ulcers that were bleedin) MRSA bacteremia, ?presumed endocarditis: Diagnosed recently at [facility]. On IV vancomycin. No fever or chills here. TTE here shows normal EF, trace mitral regurgitation, no significant aortic valve disease, moderate pulmonary hypertension. Would continue him on vancomycin for now. Given his recurrent renal issues, IV daptomycin might be a more preferred option. We need to obtain outside records to learn about his tentative end date for abx. His bradycardia was probably related to hyperkalemia of 7.0, however conduction abnormality can also occur due to endocarditis/aortic root abscess hence await cardiology input, 2) Symptomatic bradycardia: now improved. 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 Mental status stable. Continue Cresemba daily. 4) S/P Renal Transplant - off tacrolimus and cellcept. Pt only on predisone due to infectious issues. Nephrology following. 5) B/L chronic non healing heel ulcerations, with chronic calcaneal osteomyelitis: Continue wound care and IV abx. 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 7) Chronic Hepatitis B and C: on Entecavir, non-formulary, resume when able to. Discussed with pharmacist. Hep C status is unknown. Seems to have stable but elevated AST, ALT and Alk phos. 8) JERRICA on admission: resolved. Creatinine down to 1.4 today. Nephrology following. Recs: - continue vancomycin IV based on PK dosing and levels - bradycardia was probably related to hyperkalemia of 7.0, however conduction abnormality can also occur due to endocarditis/aortic root abscess hence await cardiology input, - continue Cresemba 372 mg PO daily - resume PO Entecavir for Hep B when available - continue wound care for b/l heel wounds [facility] [employer] M: [phone] O:[phone] Subjective Date of service: 04/26/18 Principal diagnosis: Symptomatic bradycardia; JERRICA on CKD; Hyperkalemia; Endocarditis; DM type II Interval history: Patient seen and examined. Denied generalized pain, SOB or rashes. Nurses notes, labs and reports reviewed, discussed with patient, questions answered. Objective - Exam Narrative Exam: Constitutional: Alert, cooperative. No acute distress Head, Ears, Nose: Normocephalic, atraumatic. External ears, nose normal Eyes: Conjunctivae/corneas clear. No icterus. No ptosis. Neck: Supple, no meningeal signs Oral: dentition few missing teeth, no thrush Cardiovascular: S1, S2 normal. Respiratory: Good air entry, clear to auscultation bilaterally GI: moderate tenderness, much more in LLQ; bowel sounds + Musculoskeletal: No pedal edema, no cyanosis. Skin: No rash or abscess Hem/Lymphatic: No palpable cervical or supraclavicular nodes. No lymphangitis Psych: Mood ok. Affect normal Neurological: Awake, alert, oriented. No gross abnormality - Constitutional Vitals: Vital Signs Temp Pulse Resp BP Pulse Ox 97.8 F 64 18 167/68 97 04/26/18 08:35 04/26/18 08:35 04/26/18 08:35 04/26/18 08:35 04/26/18 08:35 Temperature -Last 24 Hours Temperature 97.8 F Temperature 98.2 F Temperature 97.5 F Temperature 98.7 F Temperature 98.3 F Temperature 98 F - Labs CBC & Chem 7: 04/24/18 05:03 04/26/18 05:52 Labs: Abnormal lab results 04/25/18 04/25/18 04/26/18 Range/Units 16:44 20:55 05:39 BUN (9-20) mg/dL Glucose (75-100) mg/dL POC Glucose 332 H 274 H 182 H (70-105) 04/26/18 Range/Units 05:52 BUN 38 H (9-20) mg/dL Glucose 172 H (75-100) mg/dL POC Glucose (70-105)
[2018-04-26] MEDS ORDERED: VANCOMYCIN 1,250 MG in NACL 0.9% 250ML 250 ML IV SCH (11:00)
[2018-04-26] MEDS: HumaLOG SUB-Q SCH (11:18)
[2018-04-26] MEDS: LOVENOX SUB-Q SCH (11:19)
[2018-04-26] MEDS: PROTONIX PO SCH (11:20)
[2018-04-26] MEDS: VITAMIN B-1 PO SCH (11:20)
[2018-04-26] MEDS: DELTASONE PO SCH (11:21)
[2018-04-26] MEDS: VITAMIN D3 PO SCH (11:21)
[2018-04-26] MEDS: BABY ASPIRIN PO SCH (11:21)
--- NOTE | 2018-04-26 13:21 | Progress Note ---
Assessment and Plan Assessment: Junctional bradycardia --> NSR; likely 2/2 hyperkalemia Hyperkalemia - improved JERRICA - improved HTN ESRD s/p DRRT on 11/02/2016 DM H/o hepatitis B and C H/o bilateral foot osteomyelitis H/o MRSA bacteremia H/o presumed endocarditis Plan: 04/13/2018 showed EF 60-65%, grade 2 diastolic dysfunction, trace MR, severe thickening of mitral posterior leaflet, mod mitral annular calcification, mod dilated LA, mildly dilated RA, mild TR, aortic valve thickened, no obvious sequelae of endocarditis identified. DOM for persistent bacteremia was attempted but unsuccessful as pt was unable to tolerate procedure. Currently stable cardiac status. Cont home cardiac regimen. Follow ID and nephrology recs. Pt may discharge home from cardiology standpoint. Recommend follow up in our office with Dr. Grady Weaver within 1-2 weeks of hospital discharge ([phone]) OR with [place] cardiology. Pt verbalizes understanding. The patient has been seen in conjunction with Dr. PAOLA Weaver who agrees with the assessment and plan of care. Subjective Date of service: 04/26/18 Principal diagnosis: Symptomatic bradycardia; JERRICA on CKD; Hyperkalemia; Endocarditis; DM type II Interval history: pt resting in bed, no current cardiac complaints. tele reviewed - in SR HR 60s - 70s. Objective Last Vital Signs Temp 97.8 F 04/26/18 08:35 Pulse 64 04/26/18 08:35 Resp 18 04/26/18 08:35 BP 167/68 04/26/18 08:35 Pulse Ox 97 04/26/18 08:35 - Physical Examination General: No Apparent Distress HEENT: Positive: PERRL, Normocephaly, Mucus Membranes Moist Neck: Positive: neck supple, trachea midline Cardiac: Positive: Reg Rate and Rhythm, S1/S2 Lungs: Positive: Decreased Breath Sounds Neuro: Positive: Grossly Intact Abdomen: Positive: Soft. Negative: Tender Skin: Negative: Rash Musculoskeletal: No Pain Extremities: Absent: edema - Labs and Meds Comprehensive Metabolic Panel 04/26/18 Range/Units 05:52 Sodium 140 (137-145) mmol/L Potassium 4.5 (3.6-5.0) mmol/L Chloride 103.9 (98-107) mmol/L Carbon Dioxide 22 (22-30) mmol/L BUN 38 H (9-20) mg/dL Creatinine 1.0 (0.8-1.5) mg/dL Glucose 172 H (75-100) mg/dL Calcium 8.7 (8.4-10.2) mg/dL - Imaging and Cardiology EKG: report reviewed, image reviewed Echo: report reviewed (04/13/2018 showed EF 60-65%, grade 2 diastolic dysfunction, trace MR, severe thickening of mitral posterior leaflet, mod mitral annular calcification, mod dilated LA, mildly dilated RA, mild TR, aortic valve thickened, no obvious sequelae of endocarditis identified. ) - Allied health notes Allied health notes reviewed: nursing
== END 2018-04-26 12:00 | DRG 683 ==
LOC: ED 00:07 → CC1 03:27 → 4A 04-25 15:01
PROVIDERS: ADMIT Internal Medicine; ATTEND Internal Medicine
PROC: 4A033R1 Measurement of Arterial Saturation, Peripheral, Percutaneous Approach (ICD-10-PCS; principal; 2018-04-24)
PROC: 5A2204Z Restoration of Cardiac Rhythm, Single (ICD-10-PCS; 2018-04-24)
DX: N17.9 Acute kidney failure, unspecified (principal); G93.40 Encephalopathy, unspecified; E87.1 Hypo-osmolality and hyponatremia; I13.0 Hypertensive heart and chronic kidney disease with heart failure and stage 1 through stage 4 chronic kidney disease, or unspecified chronic kidney disease; Z94.0 Kidney transplant status; M86.8X7 Other osteomyelitis, ankle and foot; B18.1 Chronic viral hepatitis B without delta-agent; E87.5 Hyperkalemia; N18.4 Chronic kidney disease, stage 4 (severe); R00.1 Bradycardia, unspecified; E11.22 Type 2 diabetes mellitus with diabetic chronic kidney disease; I50.9 Heart failure, unspecified; E11.69 Type 2 diabetes mellitus with other specified complication; R91.1 Solitary pulmonary nodule; J32.9 Chronic sinusitis, unspecified; L89.629 Pressure ulcer of left heel, unspecified stage; I08.1 Rheumatic disorders of both mitral and tricuspid valves; L89.619 Pressure ulcer of right heel, unspecified stage; L89.159 Pressure ulcer of sacral region, unspecified stage; I27.20 Pulmonary hypertension, unspecified; J32.8 Other chronic sinusitis; D89.9 Disorder involving the immune mechanism, unspecified; B18.2 Chronic viral hepatitis C
CPT/HCPCS: 36415; 36600; 71045; 76770; 80048; 80053; 80061; 80202; 81001; 82550; 82553; 82803; 82962; 83735; 84100; 84132; 84484; 85007; 85025; 93005; 93010; 93306; 94760; G0378; J0360; J0461; J1650; J1815; J2405; J3246; J3370; J7030; J7040; J7050; J7512

== ENCOUNTER 2021-08-05 18:58 | Emergency (ER) | payer MEDICARE ==
--- NOTE | 2021-08-05 22:19 | Emergency Department Report ---
ED Chest Pain HPI - General Chief Complaint: Chest Pain Stated Complaint: CHEST PAIN Time Seen by Provider: 08/05/21 21:58 Source: patient Mode of arrival: Wheelchair Limitations: No Limitations - History of Present Illness Initial Comments: 66-year-old male with a history of kidney transplant who presents with generalized body aches with chest pain for the last couple of days. Patient has his kidney transplant at [facility] and was seen in [facility] about couple of weeks ago for same symptoms where he has unremarkable work-up. Patient has had his COVID shots including booster. No fever or chills reported. No other modifying or associated factors. Severity scale (0 -10): 4 - Related Data Home Medications Medication Instructions Recorded Confirmed Last Taken Aspirin [Aspirin BABY CHEW TAB] 81 mg PO QDAY 01/03/18 11/13/19 01/02/18 Cholecalciferol (Vitamin D3) 1,000 unit PO DAILY 01/03/18 11/13/19 1 Day Ago [Vitamin D3] ~01/02/18 Dextrose [Glucose Gel] 38 gm PO PRN PRN 01/03/18 11/18/19 Unknown Docusate Sodium [Colace CAP] 100 mg PO QID PRN 01/03/18 11/13/19 01/02/18 Entecavir 0.5 mg PO DAILY 01/03/18 11/13/19 01/02/18 Heparin Sodium,Porcine [Heparin 5,000 units SUB-Q Q8HR 01/03/18 11/18/19 01/02/18 Sodium] Hydralazine HCl 100 mg PO TID 01/03/18 11/13/19 01/02/18 Multivit-Min/Iron Fum/Folic AC 1 each PO DAILY 01/03/18 11/13/19 1 Day Ago [Jjzek-Ozhkdxn-Pciismlq Tablet] ~01/02/18 Pantoprazole [Protonix TAB] 40 mg PO QDAY 01/03/18 11/13/19 1 Day Ago ~01/02/18 Pregabalin 75 mg PO Q8HR 01/03/18 11/18/19 1 Day Ago ~01/02/18 Sodium Bicarbonate 650 mg PO TID 01/03/18 11/13/19 1 Day Ago ~01/02/18 oxyCODONE /ACETAMINOPHEN [Percocet 1 tab PO Q6HR PRN 01/03/18 11/13/19 Unknown 5/325 mg] predniSONE 10 mg PO QDAY 01/03/18 11/13/19 1 Day Ago ~01/02/18 Gladis Mckeon U-100 8 units SUB-Q HS 04/24/18 11/13/19 Unknown Bisacodyl 5 mg PO DAILY PRN 04/24/18 11/13/19 Unknown Fluticasone 50 mcg IN QID 04/24/18 11/13/19 Unknown Thiamine 100 mg PO DAILY 04/24/18 11/13/19 Unknown Vit B6/Me-Thfolate/Me-B12/Ala 100 mg PO DAILY 04/24/18 11/13/19 Unknown Brimonidine/Timolol 0.2-0.5% 2 drops TID 11/13/19 11/13/19 Unknown [Combigan 0.2-0.5%] Dorzolamide/Timolol/Pf 1 drop BID 11/13/19 11/13/19 Unknown [Dorzolamide-Timolol 2%-0.5%] Insulin Lispro 6 unit SUB-Q TIDWM 11/13/19 11/13/19 Unknown Isavuconazonium Sulfate [Cresemba] 186 mg PO DAILY 11/13/19 11/13/19 Unknown Latanoprost 0.005% 1 drop HS 11/13/19 11/13/19 Unknown Lisinopril [Zestril TAB] 2.5 mg PO HS 11/13/19 11/13/19 Unknown Loratadine [Allergy Relief] 10 mg PO HS 11/13/19 11/13/19 Unknown Previous Rx's Medication Instructions Recorded Last Taken Type Benzonatate [Tessalon Perles] 100 mg PO Q8HR #12 capsule 11/22/19 Unknown Rx Furosemide [Lasix TAB] 40 mg PO QDAY #30 tablet 11/22/19 Unknown Rx NIFEdipine [Nifedipine ER] 60 mg PO BID #120 11/22/19 Unknown Rx hydrALAZINE [Apresoline TAB] 50 mg PO TID #90 tablet 11/22/19 Unknown Rx Allergies Allergy/AdvReac Type Severity Reaction Status Date / Time tomato AdvReac Itching Verified 11/18/19 09:37 Heart Score - HEART Score History: Slightly suspicious EKG: Normal Age: 45-65 Risk factors: 1-2 risk factors Troponin: < normal limit HEART Score: 2 - EKG Read Time Time EKG Completed: 19:17 EKG Read Time: 19:22 - Critical Actions Critical Actions: 0-3 pts:0.9-1.7%risk of adverse cardiac event.Candidate for discharge ED Review of Systems ROS: Stated complaint: CHEST PAIN Other details as noted in HPI Comment: All other systems reviewed and negative Constitutional: malaise Cardiovascular: chest pain ED Past Medical Hx - Past Medical History Previous Medical History?: Yes Hx Hypertension: Yes Hx Congestive Heart Failure: Yes Hx Diabetes: Yes Hx Liver Disease: Yes (HEP C AND B) Hx Renal Disease: Yes (stage 3) Hx Arthritis: Yes (osteo) Hx Asthma: No Hx COPD: No Additional medical history: Hepatitis B and C. neuromuscular dysfunction of bladder. osteomyelitis. generalized weakness. MRSA,neuropathy, occular htn, glaucoma, cataract, pulmonary nodule, sinusitis - Surgical History Past Surgical History?: Yes Additional Surgical History: Kidney Transplant 10/2016. Vas Cath. skin graft - Social History Smoking Status: Never Smoker - Medications Home Medications: Home Medications Medication Instructions Recorded Confirmed Last Taken Type Aspirin [Aspirin BABY CHEW TAB] 81 mg PO QDAY 01/03/18 11/13/19 01/02/18 History Cholecalciferol (Vitamin D3) 1,000 unit PO DAILY 01/03/18 11/13/19 1 Day Ago History [Vitamin D3] ~01/02/18 Dextrose [Glucose Gel] 38 gm PO PRN PRN 01/03/18 11/18/19 Unknown History Docusate Sodium [Colace CAP] 100 mg PO QID PRN 01/03/18 11/13/19 01/02/18 History Entecavir 0.5 mg PO DAILY 01/03/18 11/13/19 01/02/18 History Heparin Sodium,Porcine [Heparin 5,000 units SUB-Q Q8HR 01/03/18 11/18/19 01/02/18 History Sodium] Hydralazine HCl 100 mg PO TID 01/03/18 11/13/19 01/02/18 History Multivit-Min/Iron Fum/Folic AC 1 each PO DAILY 01/03/18 11/13/19 1 Day Ago History [Eyeba-Rrmaviy-Minohnko Tablet] ~01/02/18 Pantoprazole [Protonix TAB] 40 mg PO QDAY 01/03/18 11/13/19 1 Day Ago History ~01/02/18 Pregabalin 75 mg PO Q8HR 01/03/18 11/18/19 1 Day Ago History ~01/02/18 Sodium Bicarbonate 650 mg PO TID 01/03/18 11/13/19 1 Day Ago History ~01/02/18 oxyCODONE /ACETAMINOPHEN [Percocet 1 tab PO Q6HR PRN 01/03/18 11/13/19 Unknown History 5/325 mg] predniSONE 10 mg PO QDAY 01/03/18 11/13/19 1 Day Ago History ~01/02/18 Basaglar Duncanikpen U-100 8 units SUB-Q HS 04/24/18 11/13/19 Unknown History Bisacodyl 5 mg PO DAILY PRN 04/24/18 11/13/19 Unknown History Fluticasone 50 mcg IN QID 04/24/18 11/13/19 Unknown History Thiamine 100 mg PO DAILY 04/24/18 11/13/19 Unknown History Vit B6/Me-Thfolate/Me-B12/Ala 100 mg PO DAILY 04/24/18 11/13/19 Unknown History Brimonidine/Timolol 0.2-0.5% 2 drops TID 11/13/19 11/13/19 Unknown History [Combigan 0.2-0.5%] Dorzolamide/Timolol/Pf 1 drop BID 11/13/19 11/13/19 Unknown History [Dorzolamide-Timolol 2%-0.5%] Insulin Lispro 6 unit SUB-Q TIDWM 11/13/19 11/13/19 Unknown History Isavuconazonium Sulfate [Cresemba] 186 mg PO DAILY 11/13/19 11/13/19 Unknown History Latanoprost 0.005% 1 drop HS 11/13/19 11/13/19 Unknown History Lisinopril [Zestril TAB] 2.5 mg PO HS 11/13/19 11/13/19 Unknown History Loratadine [Allergy Relief] 10 mg PO HS 11/13/19 11/13/19 Unknown History Benzonatate [Tessalon Perles] 100 mg PO Q8HR #12 capsule 11/22/19 Unknown Rx Furosemide [Lasix TAB] 40 mg PO QDAY #30 tablet 11/22/19 Unknown Rx NIFEdipine [Nifedipine ER] 60 mg PO BID #120 11/22/19 Unknown Rx hydrALAZINE [Apresoline TAB] 50 mg PO TID #90 tablet 11/22/19 Unknown Rx ED Physical Exam - General Limitations: No Limitations General appearance: alert, in no apparent distress - Head Head exam: Present: normal inspection - Eye Eye exam: Present: normal appearance Pupils: Present: normal accommodation - ENT ENT exam: Present: normal exam, normal orophraynx, mucous membranes moist - Neck Neck exam: Present: normal inspection, full ROM. Absent: tenderness - Respiratory Respiratory exam: Present: normal lung sounds bilaterally. Absent: respiratory distress, accessory muscle use - Cardiovascular Cardiovascular Exam: Present: regular rate, normal rhythm, normal heart sounds - GI/Abdominal GI/Abdominal exam: Present: soft, normal bowel sounds. Absent: distended, tende rness - Extremities Exam Extremities exam: Absent: tenderness, pedal edema - Back Exam Back exam: Absent: tenderness - Neurological Exam Neurological exam: Present: alert, oriented X3 - Psychiatric Psychiatric exam: Present: normal affect - Skin Skin exam: Present: warm, normal color ED Course Vital Signs 08/05/21 08/05/21 08/06/21 19:07 21:56 01:17 Temperature 98.4 F Pulse Rate 65 64 64 Respiratory 18 22 18 Rate Blood Pressure Blood Pressure 170/81 183/86 178/86 [Right] O2 Sat by Pulse 99 97 98 Oximetry 08/06/21 08/06/21 08/06/21 01:18 02:05 06:14 Temperature Pulse Rate 64 Respiratory Rate Blood Pressure 178/64 Blood Pressure [Right] O2 Sat by Pulse 98 97 Oximetry 08/06/21 08/06/21 08/06/21 08:00 10:12 14:07 Temperature Pulse Rate 59 L 79 88 Respiratory 14 16 15 Rate Blood Pressure Blood Pressure 168/79 168/59 110/76 [Right] O2 Sat by Pulse 99 99 99 Oximetry 08/06/21 08/07/21 08/07/21 22:24 08:48 09:00 Temperature Pulse Rate 72 72 78 Respiratory 16 Rate Blood Pressure 142/68 149/89 Blood Pressure 149/78 [Right] O2 Sat by Pulse 99 Oximetry 08/07/21 08/07/21 08/07/21 14:30 15:38 21:24 Temperature Pulse Rate 71 66 62 Respiratory 14 Rate Blood Pressure 149/89 149/89 Blood Pressure 142/65 [Right] O2 Sat by Pulse Oximetry 08/08/21 08/08/21 08/08/21 03:27 09:01 11:39 Temperature 98 F 97.5 F L Pulse Rate 53 L 72 72 Respiratory 16 15 Rate Blood Pressure 149/89 Blood Pressure 148/82 133/74 [Right] O2 Sat by Pulse 97 99 Oximetry 08/08/21 08/09/21 08/09/21 14:09 08:29 13:59 Temperature Pulse Rate 78 68 63 Respiratory 16 Rate Blood Pressure 119/46 150/84 Blood Pressure 146/76 [Right] O2 Sat by Pulse 98 Oximetry 08/09/21 08/09/21 08/10/21 20:10 21:29 09:15 Temperature 97.4 F L Pulse Rate 75 78 65 Respiratory 16 Rate Blood Pressure 153/73 122/70 Blood Pressure 130/75 [Right] O2 Sat by Pulse 99 Oximetry 08/10/21 08/10/21 08/11/21 09:20 21:00 10:14 Temperature Pulse Rate 67 70 Respiratory 18 Rate Blood Pressure 111/54 Blood Pressure 122/70 [Right] O2 Sat by Pulse 96 97 Oximetry 08/11/21 08/12/21 08/12/21 21:25 10:23 13:24 Temperature Pulse Rate 82 69 59 L Respiratory 17 Rate Blood Pressure 142/64 111/64 Blood Pressure 111/64 [Right] O2 Sat by Pulse 97 Oximetry 08/12/21 08/12/21 08/12/21 16:18 16:19 21:19 Temperature Pulse Rate 64 64 80 Respiratory 15 Rate Blood Pressure 111/65 149/88 Blood Pressure 111/65 [Right] O2 Sat by Pulse 100 Oximetry 08/12/21 08/13/21 08/13/21 21:21 11:51 17:37 Temperature 98.2 F Pulse Rate 85 82 70 Respiratory 18 18 Rate Blood Pressure 130/69 Blood Pressure 149/80 127/69 [Right] O2 Sat by Pulse 99 100 Oximetry - Reevaluation(s) Reevaluation #1: 08/05/21 22:19 CP and malaise--differential diagnosis: Includes but not limited to infectious process, [place], renal failure considering transplantation, pneumonia, or upper respiratory tract infection--so to rule out this we will go ahead and get basic labs including CBC, CMP, EKG, urinalysis, Reevaluation #2: 08/06/21 01:27 Given Labetolol 20 mg IV x 1 for hypertension and given Brimonidine/Timilol for glaucoma-- Reevaluation #3: 08/06/21 05:50 As i was discussing possibility of discharging home with patient he quickly told me that he is homeless and will like to be admitted to the hospital. I told him he is likely not going to meet the criteria for admission but he insisted to call the supervisor rod placing and consult made to management for further investigation. ED Medical Decision Making - Lab Data Result diagrams: 08/11/21 23:33 08/11/21 23:33 Critical care attestation.: If time is entered above; I have spent that time in minutes in the direct care of this critically ill patient, excluding procedure time. ED Disposition Clinical Impression: Malaise and fatigue, Absolute glaucoma, bilateral Chest pain Qualifiers: Chest pain type: unspecified Qualified Code(s): R07.9 - Chest pain, unspecified Hypertension Qualifiers: Hypertension type: unspecified Qualified Code(s): I10 - Essential (primary) hypertension Disposition: 03 [facility] Is pt being admited?: No Does the pt Need Aspirin: No Condition: Stable Instructions: Nonspecific Chest Pain, Adult, Hypertension (ED) Referrals: PRIMARY CARE, [Primary Care Provider] - 3-5 Days
[2021-08-05 22:44] LABS: Bilirubin,Urine NEG (Negative); Blood,Urine NEG (Negative); Color,Urine Yellow (Yellow); Mucus,Urine FEW /HPF; Urobilinogen,Urine < 2.0 mg/dL (<2.0); WBC,Urine < 1.0 /HPF (0.0-6.0)
[2021-08-05 22:54] LABS: RBC,Urine < 1.0 /HPF (0.0-6.0)
--- NOTE | 2021-08-05 22:55 | XRay Report ---
CHEST 1 VIEW INDICATION / CLINICAL INFORMATION: pain STUDY TIME: 2232 COMPARISON: 11/22/2019 FINDINGS: SUPPORT DEVICES: None HEART / MEDIASTINUM: No significant abnormality. LUNGS / PLEURA: Lung fernández are now clear. Previous right infiltrate has resolved. No pneumothorax. ADDITIONAL FINDINGS: No significant additional findings. Signer Name: Mark Katz MD Signed: 08/05/2021 10:50 PM Workstation Name: [id number]
[2021-08-05 22:57] LABS: Hematocrit 41.4 % (35.5-45.6); Hemoglobin 13.2 gm/dl (11.8-15.2); Mean Corpuscular HGB Conc 32 % (32-34); Mean Corpuscular Volume 89 fl (84-94); Platelet Count 186 K/mm3 (140-440); Red Blood Count 4.67 M/mm3 (3.65-5.03)
[2021-08-05 23:10] LABS: Alanine Aminotransferase 27 units/L (7-56); Albumin 3.8 g/dL (3.9-5); BUN/Creatinine Ratio 30; Blood Urea Nitrogen 39 mg/dL (9-20); Calcium 9.3 mg/dL (8.4-10.2); Hemolysis Index 34
[2021-08-06 00:01] LABS: Basophils % (Manual) 0 % (0.0-1.8); Platelet Estimate Consistent w Auto; RBC Morphology Normal; Total Cells Counted 100
[2021-08-06] MEDS ORDERED: COMBIGAN 0.2-0.5% OPHTH SOLN OU ONE (02:00)
--- NOTE | 2021-08-06 12:23 | Event Note ---
Date: 08/06/21 The patient was evaluated in the emergency department for symptoms described in the history of present illness. He/she was evaluated in the context of the global COVID-19 pandemic, which necessitated consideration that the patient might be at risk for infection with the virus that causes COVID-19. Institutional protocols and algorithms that pertain to the evaluation of patients at risk for COVID-19 are in a state of rapid change based on information released by regulatory bodies including the CDC and federal and state organizations. These policies and algorithms were followed during the patient's care in the emergency department. Please note that these policies, procedures and recommendations changed on a rapid basis. Patient seen and examined. He is awake, alert, oriented, and mobile in his wheelchair. He reports he has been in a wheelchair for 7 years. He denies physical pain to myself. He was deemed medically suitable for discharge by his initial treating physician yesterday evening. Have requested that nursing team reconcile home medications. Awaiting case management recommendations for appropriate placement and di sposition. In my discussion with case management, the patient was recently admitted to a group home facility, and was essentially fired as a patient for leaving the premises for more than 24 hours. In addition, case management articulated to myself that the patient was a challenging resident, making multiple phone calls, and reportedly accusing group home facility staff of various allegations. Because he has a wheelchair, not able to discharge to a homeless retirement. Reportedly does not have local family. Nursing team reports no acute issues this morning. Have requested that nursing team reconcile home medications. At the moment does not appear to have a medical contraindication to discharge. I will order her COVID swab to facilitate placement in case patient receiving f acility requires a COVID swab. I do not see documented EKG, so I will therefore order an EKG. Patient at the moment is willing himself around in a wheelchair, and not in any acute distress Vital Signs 08/05/21 08/05/21 08/06/21 19:07 21:56 01:17 Temperature 98.4 F Pulse Rate 65 64 64 Respiratory 18 22 18 Rate Blood Pressure Blood Pressure 170/81 183/86 178/86 [Right] O2 Sat by Pulse 99 97 98 Oximetry 08/06/21 08/06/21 08/06/21 01:18 02:05 06:14 Temperature Pulse Rate 64 Respiratory Rate Blood Pressure 178/64 Blood Pressure [Right] O2 Sat by Pulse 98 97 Oximetry 08/06/21 08/06/21 08:00 10:12 Temperature Pulse Rate 59 L 79 Respiratory 14 16 Rate Blood Pressure Blood Pressure 168/79 168/59 [Right] O2 Sat by Pulse 99 99 Oximetry August 06, 2021; 13:08 PM EKG is interpreted at this time. This is a sinus rhythm, with a rate of 52 bpm, and bradycardic. There is a leftward axis deviation, there is motion artifact, this is not a STEMI, the MA interval is 2 1 3 ms. This is an abnormal EKG. This is not a STEMI.
[2021-08-06] MEDS ORDERED: NON-FORMULARY EACH (Lisinopril [Zestril Tab] 2.5 MG Tablet) PO SCH (22:00)
[2021-08-06] MEDS: hydrALAZINE 25 MG TAB PO SCH (22:24)
[2021-08-07] MEDS: hydrALAZINE 25 MG TAB PO SCH ×3 (09:00→21:24)
[2021-08-07] MEDS ORDERED: CHOLECALCIFEROL 1000 UNIT PO SCH (10:00)
[2021-08-07] MEDS ORDERED: THIAMINE PO SCH (10:00)
[2021-08-07] MEDS: THIAMINE 100 MG TAB PO SCH (10:26)
[2021-08-07] MEDS: CHOLECALCIFEROL (VIT D3) 1000 UNIT (25 mcg) TAB PO SCH (10:26)
[2021-08-07] MEDS: ASPIRIN 81 MG TAB CHEW PO SCH (10:27)
[2021-08-07] MEDS: FUROSEMIDE 40 MG TAB PO SCH (13:31)
[2021-08-07] MEDS: MULTIVITAMINS,THER W-MINERALS TAB PO SCH (13:31)
--- NOTE | 2021-08-07 14:52 | Emergency Department Report ---
Blank Doc - Documentation Documentation: 66-year-old male presents currently awaiting placement by case management. Vi oly signs and nursing notes reviewed. No acute issues noted
[2021-08-08] MEDS: hydrALAZINE 25 MG TAB PO SCH ×2 (09:01→20:05)
[2021-08-08] MEDS: MULTIVITAMINS,THER W-MINERALS TAB PO SCH (09:34)
[2021-08-08] MEDS: CHOLECALCIFEROL (VIT D3) 1000 UNIT (25 mcg) TAB PO SCH (09:34)
[2021-08-08] MEDS: ASPIRIN 81 MG TAB CHEW PO SCH (09:34)
[2021-08-08] MEDS: THIAMINE 100 MG TAB PO SCH (09:34)
[2021-08-08] MEDS: FUROSEMIDE 40 MG TAB PO SCH (09:34)
--- NOTE | 2021-08-08 10:04 | Electrocardiograph Report ---
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
[2021-08-09] MEDS: hydrALAZINE 25 MG TAB PO SCH ×4 (08:29→21:29)
[2021-08-09] MEDS: ASPIRIN 81 MG TAB CHEW PO SCH (09:31)
[2021-08-09] MEDS: CHOLECALCIFEROL (VIT D3) 1000 UNIT (25 mcg) TAB PO SCH (09:32)
[2021-08-09] MEDS: THIAMINE 100 MG TAB PO SCH (09:32)
[2021-08-09] MEDS: MULTIVITAMINS,THER W-MINERALS TAB PO SCH (10:53)
[2021-08-09] MEDS: FUROSEMIDE 40 MG TAB PO SCH (10:54)
[2021-08-10] MEDS: hydrALAZINE 25 MG TAB PO SCH ×2 (09:15→23:11)
--- NOTE | 2021-08-10 10:10 | Event Note ---
Date: 08/10/21 Patient seen and examined. He is in no acute distress. He has endorsed no complaints. Vital signs unremarkable. Awaiting case management placement. Patient remains awake, alert, oriented and of sound mind. The patient demonstrates decision-making capacity. If case management unable to secure definitive housing, patient may have to be discharged homeless, with outpatient resources, and encouragement to closely coordinate with family and/or friends to obtain housing, if homeless usp not acceptable to him.
[2021-08-10] MEDS: CHOLECALCIFEROL (VIT D3) 1000 UNIT (25 mcg) TAB PO SCH (10:50)
[2021-08-10] MEDS: THIAMINE 100 MG TAB PO SCH (10:50)
[2021-08-10] MEDS: ASPIRIN 81 MG TAB CHEW PO SCH (10:51)
[2021-08-10] MEDS: FUROSEMIDE 40 MG TAB PO SCH (11:34)
[2021-08-10] MEDS: MULTIVITAMINS,THER W-MINERALS TAB PO SCH (11:34)
[2021-08-11] MEDS: ASPIRIN 81 MG TAB CHEW PO SCH (10:13)
[2021-08-11] MEDS: hydrALAZINE 25 MG TAB PO SCH ×2 (10:14→21:25)
[2021-08-11] MEDS: CHOLECALCIFEROL (VIT D3) 1000 UNIT (25 mcg) TAB PO SCH (10:16)
[2021-08-11] MEDS: THIAMINE 100 MG TAB PO SCH (10:19)
[2021-08-11] MEDS: MULTIVITAMINS,THER W-MINERALS TAB PO SCH (10:30)
[2021-08-11] MEDS: FUROSEMIDE 40 MG TAB PO SCH (10:30)
[2021-08-11] MEDS ORDERED: ASPIRIN 81 MG TAB CHEW PO ONE (23:16)
--- NOTE | 2021-08-11 23:20 | Event Note ---
Date: 08/11/21 Patient stated that he is having chest pain. Patient describes his chest pain as sharp comes and goes on the left side with no radiation. Patient denied any shortness of breath. He denied any fever or chills. No cough. EKG showed some ST changes but no STEMI. Patient stated that his chest pain is completely resolved and is asking for Ambien to sleep. Troponin slightly elevated however patient's creatinine is 1.6. Patient refused aspirin. We will continue to monitor.
--- NOTE | 2021-08-11 23:53 | XRay Report ---
CHEST 1 VIEW INDICATION / CLINICAL INFORMATION: Chest Pain. COMPARISON: Chest x-ray 08/05/2021 FINDINGS: SUPPORT DEVICES: None. HEART / MEDIASTINUM: No significant abnormality. LUNGS / PLEURA: No significant pulmonary abnormality. BONES: No significant osseous abnormality. ADDITIONAL FINDINGS: No significant additional findings. IMPRESSION: 1. No active cardiopulmonary disease. Signer Name: Noah Wright II, MD Signed: 08/11/2021 11:49 PM Workstation Name: [id number]
[2021-08-12 00:34] LABS: Hematocrit 41.2 % (35.5-45.6); Hemoglobin 13.6 gm/dl (11.8-15.2); Mean Corpuscular HGB Conc 33 % (32-34); Mean Corpuscular Volume 86 fl (84-94); Platelet Count 200 K/mm3 (140-440); Red Blood Count 4.79 M/mm3 (3.65-5.03); Red Cell Distribution Width 16.8 % (13.2-15.2)
[2021-08-12 00:45] LABS: Partial Thromboplastin Time 33.5 Sec. (24.2-36.6)
[2021-08-12 00:58] LABS: Calcium 9.2 mg/dL (8.4-10.2)
[2021-08-12 02:24] LABS: Basophils % (Manual) 0 % (0.0-1.8); Total Cells Counted 100
[2021-08-12 02:25] LABS: Anisocytosis 1+
[2021-08-12 02:26] LABS: Tear Drop Cells Rare
[2021-08-12 02:27] LABS: Ovalocytes Few; Platelet Estimate Consistent w Auto
[2021-08-12 05:32] LABS: Chol/HDL Ratio 7.6 %
[2021-08-12] MEDS: hydrALAZINE 25 MG TAB PO SCH ×3 (10:23→21:19)
[2021-08-12] MEDS: ASPIRIN 81 MG TAB CHEW PO SCH (10:28)
[2021-08-12] MEDS: THIAMINE 100 MG TAB PO SCH (10:28)
[2021-08-12] MEDS: CHOLECALCIFEROL (VIT D3) 1000 UNIT (25 mcg) TAB PO SCH (10:28)
--- NOTE | 2021-08-12 10:44 | Electrocardiograph Report ---
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
[2021-08-12] MEDS: MULTIVITAMINS,THER W-MINERALS TAB PO SCH (11:11)
[2021-08-12] MEDS: FUROSEMIDE 40 MG TAB PO SCH (11:11)
[2021-08-13] MEDS: THIAMINE 100 MG TAB PO SCH (11:54)
[2021-08-13] MEDS: ASPIRIN 81 MG TAB CHEW PO SCH (11:54)
[2021-08-13] MEDS: hydrALAZINE 25 MG TAB PO SCH ×2 (11:54→17:37)
--- NOTE | 2021-08-13 12:28 | Event Note ---
66 yo male awaiting placement mild renal insuff noted with mild dehydration will order to encourage fluid intake.
[2021-08-13] MEDS ORDERED: ONDANSETRON 4 MG ODT TAB PO ONE (13:06)
[2021-08-13] MEDS: FUROSEMIDE 40 MG TAB PO SCH (17:37)
[2021-08-13] MEDS: MULTIVITAMINS,THER W-MINERALS TAB PO SCH (17:37)
[2021-08-13] MEDS: CHOLECALCIFEROL (VIT D3) 1000 UNIT (25 mcg) TAB PO SCH (17:37)
[2021-08-13 17:41] VITALS: BP 130/69
== END 2021-08-13 19:30 ==
LOC: ED 18:58
DX: H44.519 Absolute glaucoma, unspecified eye (principal); R07.9 Chest pain, unspecified; I10 Essential (primary) hypertension; R53.83 Other fatigue; Z20.822 Contact with and (suspected) exposure to COVID-19
CPT/HCPCS: 36415; 71045; 80048; 80053; 80061; 81001; 82962; 83690; 84484; 85007; 85025; 85610; 85730; 93005; 96374; 99284; J3490; U0003; Q0162

== ENCOUNTER 2021-10-10 02:59 | Emergency (ER) | payer MEDICARE ==
--- NOTE | 2021-10-10 06:56 | XRay Report ---
CHEST 1 VIEW INDICATION / CLINICAL INFORMATION: Chest Pain. COMPARISON: Chest x-ray 08/11/2021 FINDINGS: SUPPORT DEVICES: None. HEART / MEDIASTINUM: Heart size is within normal limits. Mediastinal contour demonstrates no signific ant abnormality. Mild ectasia of the thoracic aorta is stable. LUNGS / PLEURA: Lungs are clear for degree of inspiration and technique utilized. BONES: No significant osseous abnormality. ADDITIONAL FINDINGS: No significant additional findings. IMPRESSION: 1. No active cardiopulmonary disease. Signer Name: Noah Wright II, MD Signed: 10/10/2021 6:52 AM Workstation Name: [id number]
[2021-10-10 07:10] LABS: Basophils % (Auto) 0.4 % (0.0-1.8); Eosinophils # (Auto) 0.2 K/mm3 (0.0-0.4); Eosinophils % (Auto) 3.3 % (0.0-4.3); Hematocrit 42.8 % (35.5-45.6); Hemoglobin 14.2 gm/dl (11.8-15.2); Lymphocytes # (Auto) 1.2 K/mm3 (1.2-5.4); Lymphocytes % (Auto) 19.9 % (13.4-35.0); Mean Corpuscular HGB Conc 33 % (32-34); Mean Corpuscular Volume 88 fl (84-94); Monocytes # (Auto) 0.9 K/mm3 (0.0-0.8); Monocytes % (Auto) 15.2 % (0.0-7.3); Platelet Count 235 K/mm3 (140-440); Red Blood Count 4.85 M/mm3 (3.65-5.03)
[2021-10-10 07:11] LABS: Red Cell Distribution Width 20.2 % (13.2-15.2)
[2021-10-10 07:26] LABS: Calcium 9.6 mg/dL (8.4-10.2)
[2021-10-10] MEDS ORDERED: MORPHINE 4 MG/1 ML INJ IV ONE (10:27)
--- NOTE | 2021-10-10 13:24 | Emergency Department Report ---
ED Chest Pain HPI - General Chief Complaint: Chest Pain Stated Complaint: HYPERGLYCEMIA/CHEST PAIN Time Seen by Provider: 10/10/21 06:14 Source: EMS Mode of arrival: Stretcher Limitations: No Limitations - History of Present Illness Initial Comments: Patient is a 66-year-old male with history of remote kidney transplant brought in by EMS with complaint of chest discomfort. States he gets his chest discomfort after receiving his nightly meds at his correction. Also complains of pain in his left arm. He has presented here multiple times for chest discomfort with unremarkable work-up. Severity scale (0 -10): 8 - Related Data Home Medications Medication Instructions Recorded Confirmed Last Taken Aspirin [Aspirin BABY CHEW TAB] 81 mg PO QDAY 01/03/18 11/13/19 01/02/18 Cholecalciferol (Vitamin D3) 1,000 unit PO DAILY 01/03/18 11/13/19 1 Day Ago [Vitamin D3] ~01/02/18 Dextrose [Glucose Gel] 38 gm PO PRN PRN 01/03/18 11/18/19 Unknown Docusate Sodium [Colace CAP] 100 mg PO QID PRN 01/03/18 11/13/19 01/02/18 Entecavir 0.5 mg PO DAILY 01/03/18 11/13/19 01/02/18 Heparin Sodium,Porcine [Heparin 5,000 units SUB-Q Q8HR 01/03/18 11/18/19 01/02/18 Sodium] Hydralazine HCl 100 mg PO TID 01/03/18 11/13/19 01/02/18 Multivit-Min/Iron Fum/Folic AC 1 each PO DAILY 01/03/18 11/13/19 1 Day Ago [Fxclh-Grcajsc-Evsbendr Tablet] ~01/02/18 Pantoprazole [Protonix TAB] 40 mg PO QDAY 01/03/18 11/13/19 1 Day Ago ~01/02/18 Pregabalin 75 mg PO Q8HR 01/03/18 11/18/19 1 Day Ago ~01/02/18 Sodium Bicarbonate 650 mg PO TID 01/03/18 11/13/19 1 Day Ago ~01/02/18 oxyCODONE /ACETAMINOPHEN [Percocet 1 tab PO Q6HR PRN 01/03/18 11/13/19 Unknown 5/325 mg] predniSONE 10 mg PO QDAY 01/03/18 11/13/19 1 Day Ago ~01/02/18 Gladis Mckeon U-100 8 units SUB-Q HS 04/24/18 11/13/19 Unknown Bisacodyl 5 mg PO DAILY PRN 04/24/18 11/13/19 Unknown Fluticasone 50 mcg IN QID 04/24/18 11/13/19 Unknown Thiamine 100 mg PO DAILY 04/24/18 11/13/19 Unknown Vit B6/Me-Thfolate/Me-B12/Ala 100 mg PO DAILY 04/24/18 11/13/19 Unknown Brimonidine/Timolol 0.2-0.5% 2 drops TID 11/13/19 11/13/19 Unknown [Combigan 0.2-0.5%] Dorzolamide/Timolol/Pf 1 drop BID 11/13/19 11/13/19 Unknown [Dorzolamide-Timolol 2%-0.5%] Insulin Lispro 6 unit SUB-Q TIDWM 11/13/19 11/13/19 Unknown Isavuconazonium Sulfate [Cresemba] 186 mg PO DAILY 11/13/19 11/13/19 Unknown Latanoprost 0.005% 1 drop HS 11/13/19 11/13/19 Unknown Lisinopril [Zestril TAB] 2.5 mg PO HS 11/13/19 11/13/19 Unknown Loratadine [Allergy Relief] 10 mg PO HS 11/13/19 11/13/19 Unknown Previous Rx's Medication Instructions Recorded Last Taken Type Benzonatate [Tessalon Perles] 100 mg PO Q8HR #12 capsule 11/22/19 Unknown Rx Furosemide [Lasix TAB] 40 mg PO QDAY #30 tablet 11/22/19 Unknown Rx NIFEdipine [Nifedipine ER] 60 mg PO BID #120 11/22/19 Unknown Rx hydrALAZINE [Apresoline TAB] 50 mg PO TID #90 tablet 11/22/19 Unknown Rx Allergies Allergy/AdvReac Type Severity Reaction Status Date / Time tomato AdvReac Itching Verified 11/18/19 09:37 Heart Score - HEART Score History: Slightly suspicious EKG: Non-specific Age: 45-65 Risk factors: 1-2 risk factors Troponin: < normal limit HEART Score: 3 - EKG Read Time Time EKG Completed: 05:06 EKG Read Time: 05:10 - Critical Actions Critical Actions: 0-3 pts:0.9-1.7%risk of adverse cardiac event.Candidate for discharge ED Review of Systems ROS: Stated complaint: HYPERGLYCEMIA/CHEST PAIN Other details as noted in HPI Constitutional: denies: chills, fever Respiratory: denies: cough, shortness of breath, wheezing Cardiovascular: chest pain Gastrointestinal: denies: abdominal pain, nausea, diarrhea Genitourinary: denies: urgency, dysuria Musculoskeletal: denies: back pain, joint swelling, arthralgia Skin: denies: rash, lesions Neurological: denies: headache, weakness, paresthesias Psychiatric: denies: anxiety, depression ED Past Medical Hx - Past Medical History Previous Medical History?: Yes Hx Hypertension: Yes Hx Congestive Heart Failure: Yes Hx Diabetes: Yes Hx Liver Disease: Yes (HEP C AND B) Hx Renal Disease: Yes (stage 3) Hx Arthritis: Yes (osteo) Hx Asthma: No Hx COPD: No Additional medical history: Hepatitis B and C. neuromuscular dysfunction of bladder. osteomyelitis. generalized weakness. MRSA,neuropathy, occular htn, glaucoma, cataract, pulmonary nodule, sinusitis - Surgical History Past Surgical History?: Yes Additional Surgical History: Kidney Transplant 10/2016. Vas Cath. skin graft - Social History Smoking Status: Never Smoker Substance Use Type: None - Medications Home Medications: Home Medications Medication Instructions Recorded Confirmed Last Taken Type Aspirin [Aspirin BABY CHEW TAB] 81 mg PO QDAY 01/03/18 11/13/19 01/02/18 History Cholecalciferol (Vitamin D3) 1,000 unit PO DAILY 01/03/18 11/13/19 1 Day Ago History [Vitamin D3] ~01/02/18 Dextrose [Glucose Gel] 38 gm PO PRN PRN 01/03/18 11/18/19 Unknown History Docusate Sodium [Colace CAP] 100 mg PO QID PRN 01/03/18 11/13/19 01/02/18 History Entecavir 0.5 mg PO DAILY 01/03/18 11/13/19 01/02/18 History Heparin Sodium,Porcine [Heparin 5,000 units SUB-Q Q8HR 01/03/18 11/18/19 01/02/18 History Sodium] Hydralazine HCl 100 mg PO TID 10/22/18 08/31/20 10/21/18 History Multivit-Min/Iron Fum/Folic AC 1 each PO DAILY 01/03/18 11/13/19 1 Day Ago History [Cxyqz-Rvcjhmb-Tdclusdf Tablet] ~01/02/18 Pantoprazole [Protonix TAB] 40 mg PO QDAY 01/03/18 11/13/19 1 Day Ago History ~01/02/18 Pregabalin 75 mg PO Q8HR 01/03/18 11/18/19 1 Day Ago History ~01/02/18 Sodium Bicarbonate 650 mg PO TID 01/03/18 11/13/19 1 Day Ago History ~01/02/18 oxyCODONE /ACETAMINOPHEN [Percocet 1 tab PO Q6HR PRN 01/03/18 11/13/19 Unknown History 5/325 mg] predniSONE 10 mg PO QDAY 01/03/18 11/13/19 1 Day Ago History ~01/02/18 Basaglar Monicapen U-100 8 units SUB-Q HS 04/24/18 11/13/19 Unknown History Bisacodyl 5 mg PO DAILY PRN 04/24/18 11/13/19 Unknown History Fluticasone 50 mcg IN QID 04/24/18 11/13/19 Unknown History Thiamine 100 mg PO DAILY 04/24/18 11/13/19 Unknown History Vit B6/Me-Thfolate/Me-B12/Ala 100 mg PO DAILY 04/24/18 11/13/19 Unknown History Brimonidine/Timolol 0.2-0.5% 2 drops TID 11/13/19 11/13/19 Unknown History [Combigan 0.2-0.5%] Dorzolamide/Timolol/Pf 1 drop BID 11/13/19 11/13/19 Unknown History [Dorzolamide-Timolol 2%-0.5%] Insulin Lispro 6 unit SUB-Q TIDWM 11/13/19 11/13/19 Unknown History Isavuconazonium Sulfate [Cresemba] 186 mg PO DAILY 11/13/19 11/13/19 Unknown History Latanoprost 0.005% 1 drop HS 11/13/19 11/13/19 Unknown History Lisinopril [Zestril TAB] 2.5 mg PO HS 11/13/19 11/13/19 Unknown History Loratadine [Allergy Relief] 10 mg PO HS 11/13/19 11/13/19 Unknown History Benzonatate [Tessalon Perles] 100 mg PO Q8HR #12 capsule 11/22/19 Unknown Rx Furosemide [Lasix TAB] 40 mg PO QDAY #30 tablet 11/22/19 Unknown Rx NIFEdipine [Nifedipine ER] 60 mg PO BID #120 11/22/19 Unknown Rx hydrALAZINE [Apresoline TAB] 50 mg PO TID #90 tablet 11/22/19 Unknown Rx ED Physical Exam - General Limitations: No Limitations General appearance: alert, in no apparent distress - Head Head exam: Present: atraumatic, normocephalic - Eye Eye exam: Present: normal appearance, EOMI - Respiratory Respiratory exam: Present: normal lung sounds bilaterally. Absent: respiratory distress - Cardiovascular Cardiovascular Exam: Present: regular rate, normal rhythm, normal heart sounds - GI/Abdominal GI/Abdominal exam: Present: soft. Absent: distended, tenderness - Rectal Rectal exam: Present: deferred - Neurological Exam Neurological exam: Present: alert, oriented X3 - Psychiatric Psychiatric exam: Present: normal affect, normal mood - Skin Skin exam: Present: warm, dry, intact, normal color ED Course Vital Signs 10/10/21 10/10/21 10/10/21 03:15 04:55 05:01 Temperature 98.2 F Pulse Rate 80 64 58 L Respiratory 20 20 18 Rate Blood Pressure 130/80 152/84 Blood Pressure [Left] O2 Sat by Pulse 96 100 94 Oximetry 10/10/21 10/10/21 10/10/21 06:01 07:01 08:01 Temperature Pulse Rate 53 L 70 70 Respiratory 18 14 12 Rate Blood Pressure 159/77 170/88 156/72 Blood Pressure [Left] O2 Sat by Pulse 96 100 100 Oximetry 10/10/21 10/10/21 10/10/21 08:27 09:01 09:20 Temperature Pulse Rate 81 72 Respiratory 20 20 Rate Blood Pressure 154/84 Blood Pressure 156/72 [Left] O2 Sat by Pulse 100 100 100 Oximetry 10/10/21 10/10/21 10/10/21 10:01 11:01 12:01 Temperature Pulse Rate 67 64 60 Respiratory 18 13 13 Rate Blood Pressure 162/80 148/86 148/86 Blood Pressure [Left] O2 Sat by Pulse 96 99 99 Oximetry 10/10/21 13:01 Temperature Pulse Rate 62 Respiratory 15 Rate Blood Pressure 137/83 Blood Pressure [Left] O2 Sat by Pulse 100 Oximetry ED Medical Decision Making - Lab Data Result diagrams: 10/10/21 06:39 10/10/21 06:39 - EKG Data -: EKG Interpreted by Nv EKG shows normal: sinus rhythm, axis, QRS complexes Rate: normal - Medical Decision Making CBC and CMP are grossly unremarkable. 2 sets of troponin are within normal limits with second troponin undetectable. No acute ischemic EKG findings. Heart score is 3. Patient stable for discharge home. Follow-up with PCP within 1 to 2 weeks. Critical care attestation.: If time is entered above; I have spent that time in minutes in the direct care of this critically ill patient, excluding procedure time. ED Disposition Clinical Impression: Nonspecific chest pain Disposition: 01 HOME / SELF CARE / HOMELESS Is pt being admited?: No Does the pt Need Aspirin: No Condition: Stable Instructions: Nonspecific Chest Pain, Adult Additional Instructions: Please follow-up with your primary doctor within 1 to 2 weeks. You may return if your symptoms worsen.
[2021-10-10 17:11] VITALS: BP 163/66
--- NOTE | 2021-10-11 11:11 | Electrocardiograph Report ---
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
== END 2021-10-10 19:08 | disposition home or self-care (01) ==
LOC: ED 02:59
DX: R07.9 Chest pain, unspecified (principal); I13.0 Hypertensive heart and chronic kidney disease with heart failure and stage 1 through stage 4 chronic kidney disease, or unspecified chronic kidney disease; I50.9 Heart failure, unspecified; N18.30 Chronic kidney disease, stage 3 unspecified; E11.22 Type 2 diabetes mellitus with diabetic chronic kidney disease; M19.90 Unspecified osteoarthritis, unspecified site; K76.9 Liver disease, unspecified; Z91.02 Food additives allergy status; Z79.899 Other long term (current) drug therapy
CPT/HCPCS: 36415; 71045; 80053; 82962; 84484; 85025; 93005; 96374; 99284; J2270